=== PATIENT | female | born 1965 | race Caucasian/White ===

== ENCOUNTER 2016-06-18 13:42 | Emergency (ER) | payer MEDICAID ==
--- NOTE | 2016-06-18 13:51 | ER Document Report ---
ED Medical Screen (RME) - General Stated Complaint: COUGH Notes: patient is a 50 year old female who presents with cough that started 3 days ago , she states when she coughs she has lower pelvic pain, "ripping". She had a hysterectomy 4 months ago. Cough is nonproductive, denies any nasal drainage, fevers, chills, SOB or weezing I have greeted and performed a rapid initial assessment of this patient. A comprehensive ED assessment and evaluation of the patient, analysis of test results and completion of the medical decision making process will be conducted by additional ED providers. TRAVEL OUTSIDE OF THE [place] IN LAST 30 DAYS: No - Related Data Allergies/Adverse Reactions: hydromorphone [From Dilaudid] Adverse Reaction (Unknown, Verified 06/18/16 13:48 ) Nausea Past Medical History - Past Medical History Cardiac Medical History: Reports: Hx Congestive Heart Failure, Hx Coronary Artery Disease, Hx Heart Attack - 2008 with stent, Hx Hypercholesterolemia Denies: Hx Hypertension Pulmonary Medical History: Reports: Hx Asthma, Hx Bronchitis, Hx COPD, Hx Pneumonia Denies: Hx Tuberculosis Neurological Medical History: Denies: Hx Cerebrovascular Accident, Hx Seizures Renal/ Medical History: Denies: Hx End Stage Renal Disease, Hx Kidney Stones GI Medical History: Reports: Hx Gastroesophageal Reflux Disease. Denies: Hx Cirrhosis, Hx Gastritis, Hx Hepatitis, Hx Irritable Bowel, Hx Ulcer Musculoskeltal Medical History: Denies Hx Arthritis, Denies Hx Fibromyalgia, Denies Hx Gout, Denies Hx Multiple Sclerosis, Reports Hx Muscle Spasm - lower back, Denies Hx Musculoskeletal Deformity Psychiatric Medical History: Reports: Hx Anxiety, Hx Bipolar Disorder, Hx Depression Denies: Hx Schizophrenia Infectious Medical History: Denies: Hx Hepatitis Past Surgical History: Reports: Hx Appendectomy, Hx Cardiac Catheterization, Hx Cardiac Surgery - stent x 2, Hx Coronary Stent - x2 2008 at [facility] in [place], Hx Hysterectomy, Hx Kidney (Renal Surgery). Denies: Hx Pacemaker - Immunizations Immunizations up to date: Yes Hx Diphtheria, Pertussis, Tetanus Vaccination: Yes Physical Exam - Vital signs Vitals: Temp Pulse Resp BP Pulse Ox 97.8 F 70 16 106/61 99 06/18/16 13:45 06/18/16 13:45 06/18/16 13:45 06/18/16 13:45 06/18/16 13:45 Course - Vital Signs Vital signs: Temp Pulse Resp BP Pulse Ox 97.8 F 70 16 106/61 99 06/18/16 13:45 06/18/16 13:45 06/18/16 13:45 06/18/16 13:45 06/18/16 13:45
[2016-06-18 14:59] LABS: APPEARANCE,URINE CLEAR; BILIRUBIN,URINE NEGATIVE (NEGATIVE); GLUCOSE, URINE NEGATIVE (NEGATIVE); KETONES,URINE NEGATIVE (NEGATIVE); LEUKOCYTE ESTERASE,URINE NEGATIVE (NEGATIVE); NITRITE,URINE NEGATIVE (NEGATIVE); PROTEIN,URINE NEGATIVE (NEGATIVE); URINE SPECIFIC GRAVITY 1.012; UROBILINOGEN,URINE NEGATIVE mg/dL (<2.0)
--- NOTE | 2016-06-18 15:32 | ER Document Report ---
HPI - HPI Patient complains to provider of: abdominal pain, cough Onset: Other - 3 days Quality of pain: Sharp Severity: Severe Pain Level: 5 Context: Patient presents to the emergency department with complaints of lower abdominal pain when she coughs. Patient reports she had a hysterectomy in January. She reports she had complications. She reports 3 days ago she noted she had pain whenever she coughed. She reports nonproductive cough. Denies fever vomiting diarrhea. She reports it feels like the area is tearing. Denies pain with void. Associated Symptoms: Nonproductive cough Exacerbated by: Coughing Relieved by: Denies Similar symptoms previously: No Recently seen / treated by doctor: No - REPRODUCTIVE Reproductive: DENIES: : - DERM Skin Color: Normal Past Medical History - General Information source: Patient Last Menstrual Period: hyst - Social History Smoking Status: Current Every Day Smoker Chew tobacco use (# tins/day): No Frequency of alcohol use: None Drug Abuse: None Lives with: Family Family History: None Patient has suicidal ideation: No Patient has homicidal ideation: No - Past Medical History Cardiac Medical History: Reports: Hx Congestive Heart Failure, Hx Coronary Artery Disease, Hx Heart Attack - 2008 with stent, Hx Hypercholesterolemia Denies: Hx Hypertension Pulmonary Medical History: Reports: Hx Asthma, Hx Bronchitis, Hx COPD, Hx Pneumonia Denies: Hx Tuberculosis Neurological Medical History: Denies: Hx Cerebrovascular Accident, Hx Seizures Renal/ Medical History: Denies: Hx End Stage Renal Disease, Hx Kidney Stones, Hx Peritoneal Dialysis GI Medical History: Reports: Hx Gastroesophageal Reflux Disease. Denies: Hx Cirrhosis, Hx Gastritis, Hx Hepatitis, Hx Irritable Bowel, Hx Ulcer Musculoskeltal Medical History: Denies Hx Arthritis, Denies Hx Fibromyalgia, Denies Hx Gout, Denies Hx Multiple Sclerosis, Reports Hx Muscle Spasm - lower back, Denies Hx Musculoskeletal Deformity Psychiatric Medical History: Reports: Hx Anxiety, Hx Bipolar Disorder, Hx Depression Denies: Hx Schizophrenia Infectious Medical History: Denies: Hx Hepatitis Past Surgical History: Reports: Hx Appendectomy, Hx Cardiac Catheterization, Hx Cardiac Surgery - stent x 2, Hx Coronary Stent - x2 2008 at [facility] in [place], Hx Hysterectomy, Hx Kidney (Renal Surgery). Denies: Hx Pacemaker - Immunizations Immunizations up to date: Yes Hx Diphtheria, Pertussis, Tetanus Vaccination: Yes Hx Pneumococcal Vaccination: 05/10/12 Vertical Provider Document - CONSTITUTIONAL Agree With Documented VS: Yes Exam Limitations: No Limitations General Appearance: WD/WN, No Apparent Distress - nontoxic looking, sitting up eating cheetos - INFECTION CONTROL TRAVEL OUTSIDE OF THE [place] IN LAST 30 DAYS: No - HEENT HEENT: Atraumatic, Normocephalic. negative: Pharyngeal Exudate, Pharyngeal Erythema - NECK Neck: Normal Inspection, Supple. negative: Lymphadenopathy-Left, Lymphadenopathy-Right - RESPIRATORY Respiratory: Breath Sounds Normal, No Respiratory Distress - occasional cough. negative: Rhonchi, Wheezing O2 Sat by Pulse Oximetry: 99 - CARDIOVASCULAR Cardiovascular: Regular Rate, Regular Rhythm - GI/ABDOMEN Gastrointestinal: Abdomen Soft, Abdomen Tender - pt c/o pain to abd when coughing, area palpated, no bulge noted with cough or bearing down, no erythema/ warmth/swelling noted, Normal Bowel Sounds. negative: Abdominal Guarding, Abdominal Rebound, Hepatomegaly, Spleenomegaly - BACK Back: Normal Inspection - MUSCULOSKELETAL/EXTREMETIES Musculoskeletal/Extremeties: MAEW, FROM - NEURO Level of Consciousness: Awake, Alert, Appropriate Motor/Sensory: No Motor Deficit - DERM Integumentary: Warm, Dry Adult Front & Back Diagram: 1 - c/o pain with cough, no pain at rest Course - Re-evaluation Re-evalutation: 06/18/16 Patient was instructed on importance of quit smoking. Patient was also instructed to follow up with Dr. Humphries for evaluation on Monday. He remains negative. Patient looks nontoxic. Abdomen is flat no signs or symptoms of bulging no erythema and no warmth, no signs of infection. - Vital Signs Vital signs: Temp Pulse Resp BP Pulse Ox 97.8 F 70 16 106/61 99 06/18/16 13:45 06/18/16 13:45 06/18/16 13:45 06/18/16 13:45 06/18/16 13:45 Discharge - Discharge Clinical Impression: abdominal pain with cough, Cough Condition: Stable Disposition: HOME, SELF-CARE Instructions: Tesbinta Dobson ([facility]), Stop Smoking ([facility]) Additional Instructions: *You have been evaluated for a cough, abdominal pain with cough *Take medication as prescribed *Quit smoking *Increase fluids *Monitor your temperature, take Tylenol as indicated *Follow up with Dr Humphries Monday for recheck, follow up with your primary care provider within one week for recheck *Return to ED for increasing fever, cough, worsening condition, changes, needs Prescriptions: Benzonatate [Tessalon Perles 100 mg Capsule] 100 mg PO ASDIR PRN #40 capsule PRN Reason: Forms: Smoking Cessation Education Referrals: MIREYA BRUMFIELD PA-C [Primary Care Provider] - Follow up in 1 week BREANA HUMPHRIES MD [ACTIVE STAFF] - 06/20/16
[2016-06-18 15:57] VITALS: BP 98/64
== END 2016-06-18 15:55 | disposition home or self-care (01) ==
LOC: ER 13:42
DX: R10.30 Lower abdominal pain, unspecified (principal); R05 Cough; Z98.890 Other specified postprocedural states; F17.200 Nicotine dependence, unspecified, uncomplicated
CPT/HCPCS: 81001; 87086; 99284

== ENCOUNTER 2016-07-08 10:33 | Emergency (ER) | payer MEDICAID ==
[2016-07-08] MEDS ORDERED: IBUPROFEN 800 MG TABLET PO ONE (11:10)
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
[2016-07-08] MEDS ORDERED: ONDANSETRON 4 MG TAB.RAPDIS PO ONE (12:39)
[2016-07-08] MEDS ORDERED: CEPHALEXIN 500 MG CAPSULE PO ONE (12:39)
[2016-07-08] MEDS ORDERED: OXYCODONE-ACETAMINOPHEN 5-325 MG TABLET PO ONE (12:39)
[2016-07-08 12:57] VITALS: BP 115/64
== END 2016-07-08 12:56 | disposition home or self-care (01) ==
LOC: ER 10:33
DX: S02.31XA Fracture of orbital floor, right side, initial encounter for closed fracture (principal); R07.89 Other chest pain; Y04.2XXA Assault by strike against or bumped into by another person, initial encounter; Y92.009 Unspecified place in unspecified non-institutional (private) residence as the place of occurrence of the external cause; F17.210 Nicotine dependence, cigarettes, uncomplicated; J44.9 Chronic obstructive pulmonary disease, unspecified; K21.9 Gastro-esophageal reflux disease without esophagitis; I50.9 Heart failure, unspecified; I25.10 Atherosclerotic heart disease of native coronary artery without angina pectoris; E78.00 Pure hypercholesterolemia, unspecified; I25.2 Old myocardial infarction; Z90.710 Acquired absence of both cervix and uterus
CPT/HCPCS: 99284; 70150; 71101; 70486; J3490; S0119

== ENCOUNTER 2016-07-11 15:16 | Emergency (ER) | payer MEDICAID ==
[2016-07-11] MEDS ORDERED: PROCHLORPERAZINE EDISYLATE INJ 10 MG/2 ML VIAL IM ONE (16:16)
[2016-07-11] MEDS ORDERED: MORPHINE SULFATE 10 MG/ML INJ IM ONE (16:16)
[2016-07-11] MEDS ORDERED: ALPRAZOLAM 0.5 MG TABLET PO ONE (16:16)
--- NOTE | 2016-07-11 16:18 | ER Document Report ---
HPI - HPI Patient complains to provider of: facial pain and headache Pain Level: 5 Context: Patient is a 50-year-old female who was seen on July 07 and was diagnosed with orbital floor fracture that is nondisplaced as well as maxillary sinus fractures of the right side. Patient states that she is in the process scheduling a follow-up visit with ophthalmology but states that she has had a headache and ran out of Percocet. Her facial pain now includes mild numbness along the right lateral aspect of her nose and over her cheek that she is able to smile and frown and move her face without any difficulty. States that her headache is predominantly on the right side and pulsating in nature. She denies any history of migraines. She states she's been following precautions she was given is been sleeping at an angle in bed. States she's been using ice for her face as well. - REPRODUCTIVE Reproductive: DENIES: : - DERM Skin Color: Normal, [place] Past Medical History - Social History Smoking Status: Current Every Day Smoker Family History: None Patient has suicidal ideation: No - Past Medical History Cardiac Medical History: Reports: Hx Congestive Heart Failure, Hx Coronary Artery Disease, Hx Heart Attack - 2008 with stent, Hx Hypercholesterolemia Denies: Hx Hypertension Pulmonary Medical History: Reports: Hx Asthma, Hx Bronchitis, Hx COPD, Hx Pneumonia Denies: Hx Tuberculosis Neurological Medical History: Denies: Hx Cerebrovascular Accident, Hx Seizures Renal/ Medical History: Denies: Hx End Stage Renal Disease, Hx Kidney Stones, Hx Peritoneal Dialysis GI Medical History: Reports: Hx Gastroesophageal Reflux Disease. Denies: Hx Cirrhosis, Hx Gastritis, Hx Hepatitis, Hx Irritable Bowel, Hx Ulcer Musculoskeltal Medical History: Denies Hx Arthritis, Denies Hx Fibromyalgia, Denies Hx Gout, Denies Hx Multiple Sclerosis, Reports Hx Muscle Spasm - lower back, Denies Hx Musculoskeletal Deformity Psychiatric Medical History: Reports: Hx Anxiety, Hx Bipolar Disorder, Hx Depression Denies: Hx Schizophrenia Infectious Medical History: Denies: Hx Hepatitis Past Surgical History: Reports: Hx Appendectomy, Hx Cardiac Catheterization, Hx Cardiac Surgery - stent x 2, Hx Coronary Stent - x2 2008 at [facility] in [place], Hx Hysterectomy, Hx Kidney (Renal Surgery). Denies: Hx Pacemaker - Immunizations Immunizations up to date: Yes Hx Diphtheria, Pertussis, Tetanus Vaccination: Yes Hx Pneumococcal Vaccination: 05/10/12 Vertical Provider Document - CONSTITUTIONAL Agree With Documented VS: Yes Exam Limitations: No Limitations General Appearance: WD/WN, No Apparent Distress - INFECTION CONTROL TRAVEL OUTSIDE OF THE [place] IN LAST 30 DAYS: No - HEENT HEENT: Normocephalic, PERRLA Notes: Evidence of ecchymosis over the right maxillary sinus with mild swelling. Extraocular muscles intact without any concern for entrapment. - NECK Neck: Normal Inspection - RESPIRATORY Respiratory: Breath Sounds Normal, No Respiratory Distress, Chest Non-Tender. negative: Rales, Rhonchi, Wheezing - CARDIOVASCULAR Cardiovascular: Regular Rate, Regular Rhythm, No Murmur Pulses: Normal: Radial - NEURO Level of Consciousness: Awake, Alert, Appropriate Motor/Sensory: No Motor Deficit, No Sensory Deficit - DERM Integumentary: Warm, Dry, No Rash Course - Re-evaluation Re-evalutation: 07/11/16 21:23 patient is a 50-year-old female who is hemodynamically stable, no acute distress and afebrile. Presentation of her facial pain is consistent with either injury or irritation to the infraorbital nerve that would innervate that part of her face. There is no need for additional imaging at this time. Patient received pain medication and Compazine for her headache which she states that improved dramatically. Discussed with patient importance of following up with ophthalmology which she expresses understanding. Discussed with her to continue taking her antibiotics as prescribed Per [facility] protocol and guidelines, this case was discussed with supervising physician Dr. Werner Osborn prior to discharge Discharge - Discharge Clinical Impression: Orbital floor fracture Qualifiers: Encounter type: subsequent encounter Fracture type: closed Laterality: right Fracture healing: with routine healing Qualified Code(s): S02.31XD - Fracture of orbital floor, right side, subsequent encounter for fracture with routine healing Condition: Good Disposition: HOME, SELF-CARE Additional Instructions: Continue taking your medications as prescribed. Follow-up with ophthalmology when you have a scheduled appointment Prescriptions: Oxycodone HCl/Acetaminophen [Percocet 5-325 mg Tablet] 1 - 2 tab PO Q4H PRN #25 tablet PRN Reason: Referrals: DANIELLE CONWAY FNP [Primary Care Provider] - Follow up as needed
[2016-07-11 18:09] VITALS: BP 118/70
== END 2016-07-11 17:21 | disposition home or self-care (01) ==
LOC: ER 15:16
DX: S02.31XD Fracture of orbital floor, right side, subsequent encounter for fracture with routine healing (principal); R51 Headache; F17.200 Nicotine dependence, unspecified, uncomplicated; X58.XXXD Exposure to other specified factors, subsequent encounter
CPT/HCPCS: 99283; 96372; J3490; J2270; J0780

== ENCOUNTER 2016-10-13 12:40 | Emergency (ER) | payer MEDICAID ==
[2016-10-13 12:50] VITALS: BP 123/86
[2016-10-13] MEDS ORDERED: HYDROCODONE/ACETAMINOPHEN 5-325 MG TABLET PO ONE (12:56)
== END 2016-10-13 14:30 | disposition left against medical advice (07) ==
LOC: ER 12:40
DX: Z53.9 Procedure and treatment not carried out, unspecified reason (principal); J34.89 Other specified disorders of nose and nasal sinuses

== ENCOUNTER 2016-10-14 03:14 | Emergency (ER) | payer MEDICAID ==
[2016-10-14] MEDS ORDERED: OXYCODONE-ACETAMINOPHEN 5-325 MG TABLET PO ONE (03:41)
--- NOTE | 2016-10-14 03:47 | ER Document Report ---
ED General - General Chief Complaint: Post Surgical Pain Stated Complaint: NOSE PAIN Time Seen by Provider: 10/14/16 03:31 Notes: Patient is a 51-year-old female who recently had surgery on her sinuses and nodes. She has a history of orbital floor fracture. Because of this she was having sinus issues. Since his surgery she has had severe pain in her nose. She said the English is not helping and therefore she stopped taking it has been taking Motrin. She has had Percocet in the past which works better for her. No bleeding from the nose. No vomiting. No fevers. No other complaints at this time. TRAVEL OUTSIDE OF THE [place] IN LAST 30 DAYS: No - Related Data Allergies/Adverse Reactions: hydromorphone [From Dilaudid] Adverse Reaction (Unknown, Verified 10/13/16 12:49 ) Nausea Past Medical History - Social History Smoking Status: Unknown if Ever Smoked Frequency of alcohol use: None Drug Abuse: None Family History: None Patient has suicidal ideation: No Patient has homicidal ideation: No - Past Medical History Cardiac Medical History: Reports: Hx Congestive Heart Failure, Hx Coronary Artery Disease, Hx Heart Attack - 2008 with stent, Hx Hypercholesterolemia Denies: Hx Hypertension Pulmonary Medical History: Reports: Hx Asthma, Hx Bronchitis, Hx COPD, Hx Pneumonia Denies: Hx Tuberculosis Neurological Medical History: Denies: Hx Cerebrovascular Accident, Hx Seizures Renal/ Medical History: Denies: Hx End Stage Renal Disease, Hx Kidney Stones, Hx Peritoneal Dialysis GI Medical History: Reports: Hx Gastroesophageal Reflux Disease. Denies: Hx Cirrhosis, Hx Gastritis, Hx Hepatitis, Hx Irritable Bowel, Hx Ulcer Musculoskeltal Medical History: Denies Hx Arthritis, Denies Hx Fibromyalgia, Denies Hx Gout, Denies Hx Multiple Sclerosis, Reports Hx Muscle Spasm - lower back, Denies Hx Musculoskeletal Deformity Psychiatric Medical History: Reports: Hx Anxiety, Hx Bipolar Disorder, Hx Depression Denies: Hx Schizophrenia Infectious Medical History: Denies: Hx Hepatitis Past Surgical History: Reports: Hx Appendectomy, Hx Cardiac Catheterization, Hx Cardiac Surgery - stent x 2, Hx Coronary Stent - x2 2008 at [facility] in [place], Hx Hysterectomy, Hx Kidney (Renal Surgery). Denies: Hx Pacemaker - Immunizations Immunizations up to date: Yes Hx Diphtheria, Pertussis, Tetanus Vaccination: Yes Hx Pneumococcal Vaccination: 05/10/12 Review of Systems - Review of Systems Notes: My Normal Review Basic REVIEW OF SYSTEMS: CONSTITUTIONAL : Denies fever, chills, or sweats. Denies recent illness. EENT: Facial pain. MUSCULOSKELETAL: Denies neck or back pain or joint pain or swelling. SKIN: Denies rash or skin lesions. NEUROLOGICAL: Denies altered mental status or loss of consciousness. Denies headache. Denies weakness or paralysis or loss of use of either side. Denies problems with gait or speech. Denies sensory or motor loss. ALL OTHER SYSTEMS REVIEWED AND NEGATIVE. Physical Exam - Vital signs Vitals: Temp Pulse Resp BP Pulse Ox 97.8 F 88 20 117/73 97 10/14/16 03:17 10/14/16 03:10/14/16 03:10/14/16 03:10/14/16 03:17 - Notes Notes: General Appearance: Well nourished, alert, cooperative, no acute distress, moderate obvious discomfort. Tearful Vitals: reviewed, See vital signs table. Head: no swelling or tenderness to the head Eyes: PERRL, EOMI, Conjuctiva clear Mouth: No decreasd moisture Throat: No tonsillar inflammation, No airway obstruction, No lymphadenopathy Nose: Stents in bilateral nares. No discharge or blood from nares. Neck: Supple, no neck tenderness, Lungs: No wheezing, No rales, No rhonci, No accessory muscle use, good air exchange bilaterally. Heart: Normal rate, Regular rythm, No murmur, no rub Neuro: speech clear, oriented x 3, normal affect, responds appropriately to questions. Course - Vital Signs Vital signs: Temp Pulse Resp BP Pulse Ox 97.8 F 88 20 117/73 97 10/14/16 03:17 10/14/16 03:17 10/14/16 03:10/14/16 03:10/14/16 03:17 - Transfer of Care Notes: 10/14/16 03:49 I informed patient that I will place her on Percocet. I am told her that the Percocet may help a little bit more with her pain but will not relieve her pain. I informed her that she should expect have some pain over the next week to 2 weeks until her sinus node was healed. I informed her that this is typically a painful surgery. I encouraged her to call her doctor Prabhjot morning for close follow-up and for further pain management. I informed her that she cannot take the hydrocodone while taking the oxycodone. Patient is aware of this and says she will not take the hydrocodone. Patient's is at bedside. He agrees with plan as well. Dictation of this chart was performed using voice recognition software; therefore, there may be some unintended grammatical errors. Discharge - Discharge Clinical Impression: Post-op pain Condition: Good Disposition: HOME, SELF-CARE Additional Instructions: Do not take the hydrocodone medication since we are starting you on the oxycodone. Please follow up with your doctor on Monday for reevaluation. Prescriptions: Oxycodone HCl/Acetaminophen [Percocet 5-325 mg Tablet] 1 tab PO Q4H PRN #15 tablet PRN Reason:
[2016-10-14 04:04] VITALS: BP 110/71
== END 2016-10-14 04:00 | disposition home or self-care (01) ==
LOC: ER 03:14
DX: G89.18 Other acute postprocedural pain (principal); I50.9 Heart failure, unspecified; I25.10 Atherosclerotic heart disease of native coronary artery without angina pectoris; E78.00 Pure hypercholesterolemia, unspecified; J44.9 Chronic obstructive pulmonary disease, unspecified; K21.9 Gastro-esophageal reflux disease without esophagitis; I25.2 Old myocardial infarction; Z88.6 Allergy status to analgesic agent; Z90.710 Acquired absence of both cervix and uterus
CPT/HCPCS: 99283

== ENCOUNTER 2016-10-16 13:38 | Emergency (ER) | payer MEDICAID ==
[2016-10-16 13:48] VITALS: BP 104/72
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
== END 2016-10-16 14:25 | disposition home or self-care (01) ==
LOC: ER 13:38
DX: J34.89 Other specified disorders of nose and nasal sinuses (principal); G89.18 Other acute postprocedural pain; R51 Headache; Z79.899 Other long term (current) drug therapy; F17.200 Nicotine dependence, unspecified, uncomplicated; Y08.09XA Assault by strike by other specified type of sport equipment, initial encounter
CPT/HCPCS: 99283

== ENCOUNTER 2017-02-23 19:23 | Emergency (ER) | payer MEDICAID ==
--- NOTE | 2017-02-23 19:48 | ER Document Report ---
ED Medical Screen (RME) - General Chief Complaint: Chest Pain > 30 Stated Complaint: CHEST PAIN,LEFT ARM NUMBNESS Time Seen by Provider: 02/23/17 19:47 TRAVEL OUTSIDE OF THE [place] IN LAST 30 DAYS: No - Related Data Allergies/Adverse Reactions: hydromorphone [From Dilaudid] Adverse Reaction (Unknown, Verified 02/23/17 19:28 ) Nausea Past Medical History - Past Medical History Cardiac Medical History: Reports: Hx Congestive Heart Failure, Hx Coronary Artery Disease, Hx Heart Attack - 2008 with stent, Hx Hypercholesterolemia Denies: Hx Hypertension Pulmonary Medical History: Reports: Hx Asthma, Hx Bronchitis, Hx COPD, Hx Pneumonia Denies: Hx Tuberculosis Neurological Medical History: Denies: Hx Cerebrovascular Accident, Hx Seizures Renal/ Medical History: Denies: Hx End Stage Renal Disease, Hx Kidney Stones, Hx Peritoneal Dialysis GI Medical History: Reports: Hx Gastroesophageal Reflux Disease. Denies: Hx Cirrhosis, Hx Gastritis, Hx Hepatitis, Hx Irritable Bowel, Hx Ulcer Musculoskeltal Medical History: Denies Hx Arthritis, Denies Hx Fibromyalgia, Denies Hx Gout, Denies Hx Multiple Sclerosis, Reports Hx Muscle Spasm - lower back, Denies Hx Musculoskeletal Deformity Psychiatric Medical History: Reports: Hx Anxiety, Hx Bipolar Disorder, Hx Depression Denies: Hx Schizophrenia Infectious Medical History: Denies: Hx Hepatitis Past Surgical History: Reports: Hx Appendectomy, Hx Cardiac Catheterization, Hx Cardiac Surgery - stent x 2, Hx Coronary Stent - x2 2008 at [facility] in [place], Hx Hysterectomy, Hx Kidney (Renal Surgery). Denies: Hx Pacemaker - Immunizations Immunizations up to date: Yes Hx Diphtheria, Pertussis, Tetanus Vaccination: Yes Physical Exam - Vital signs Vitals: Temp Pulse Resp BP Pulse Ox 97.9 F 61 18 119/75 97 02/23/17 19:37 02/23/17 19:37 02/23/17 19:37 02/23/17 19:37 02/23/17 19:37 Course - Vital Signs Vital signs: Temp Pulse Resp BP Pulse Ox 97.9 F 61 18 119/75 97 02/23/17 19:37 02/23/17 19:37 02/23/17 19:37 02/23/17 19:37 02/23/17 19:37
[2017-02-23] MEDS ORDERED: HYDROCODONE/ACETAMINOPHEN 5-325 MG TABLET PO ONE (20:26)
--- NOTE | 2017-02-23 20:49 | ER Document Report ---
ED General - General Chief Complaint: Chest Pain > 30 Stated Complaint: CHEST PAIN,LEFT ARM NUMBNESS Time Seen by Provider: 02/23/17 19:47 Mode of Arrival: Ambulatory Information source: Patient Notes: 51-year-old female history of cardiac concerns presents with complaints of left anterior rib wall pain after fall 2 days ago. Patient notes breathing has worsened since and it hurts to take a deep breath. She denies any fevers or chills states the pain has been constant when you touch it on the chest wall TRAVEL OUTSIDE OF THE [place] IN LAST 30 DAYS: No - HPI Onset: Other - 2-3 day duration Onset/Duration: Persistent Quality of pain: Sharp Severity: Moderate Pain Level: 2 Associated symptoms: Body/muscle aches, Hurts to breath, Shortness of breath Exacerbated by: Deep breathing Relieved by: Denies Similar symptoms previously: Yes Recently seen / treated by doctor: Yes - Related Data Allergies/Adverse Reactions: hydromorphone [From Dilaudid] Adverse Reaction (Unknown, Verified 02/23/17 19:28 ) Nausea Past Medical History - Social History Smoking Status: Current Every Day Smoker Cigarette use (# per day): Yes Chew tobacco use (# tins/day): No Smoking Education Provided: No Family History: None - Past Medical History Cardiac Medical History: Reports: Hx Congestive Heart Failure, Hx Coronary Artery Disease, Hx Heart Attack - 2008 with stent, Hx Hypercholesterolemia Denies: Hx Hypertension Pulmonary Medical History: Reports: Hx Asthma, Hx Bronchitis, Hx COPD, Hx Pneumonia Denies: Hx Tuberculosis Neurological Medical History: Denies: Hx Cerebrovascular Accident, Hx Seizures Renal/ Medical History: Denies: Hx End Stage Renal Disease, Hx Kidney Stones, Hx Peritoneal Dialysis GI Medical History: Reports: Hx Gastroesophageal Reflux Disease. Denies: Hx Cirrhosis, Hx Gastritis, Hx Hepatitis, Hx Irritable Bowel, Hx Ulcer Musculoskeltal Medical History: Denies Hx Arthritis, Denies Hx Fibromyalgia, Denies Hx Gout, Denies Hx Multiple Sclerosis, Reports Hx Muscle Spasm - lower back, Denies Hx Musculoskeletal Deformity Psychiatric Medical History: Reports: Hx Anxiety, Hx Bipolar Disorder, Hx Depression Denies: Hx Schizophrenia Infectious Medical History: Denies: Hx Hepatitis Past Surgical History: Reports: Hx Appendectomy, Hx Cardiac Catheterization, Hx Cardiac Surgery - stent x 2, Hx Coronary Stent - x2 2007 at [facility] in [place], Hx Hysterectomy, Hx Kidney (Renal Surgery). Denies: Hx Pacemaker - Immunizations Immunizations up to date: Yes Hx Diphtheria, Pertussis, Tetanus Vaccination: Yes Hx Pneumococcal Vaccination: 05/10/12 Review of Systems - Review of Systems Notes: REVIEW OF SYSTEMS: CONSTITUTIONAL : Denies fever, chills, or sweats. Denies recent illness. EENT: Denies eye, ear, throat, or mouth pain or symptoms. Denies nasal or sinus congestion or discharge. Denies throat, tongue, or mouth swelling or difficulty swallowing. CARDIOVASCULAR: Admits anterior chest wall pain RESPIRATORY: Admits to pain with deep inspiration GASTROINTESTINAL: Denies abdominal pain or distention. Denies nausea, vomiting , or diarrhea. Denies blood in vomitus, stools, or per rectum. Denies black, tarry stools. Denies constipation. GENITOURINARY: Denies difficulty urinating, painful urination, burning, frequency, blood in urine, or discharge. FEMALE GENITOURINARY: Denies vaginal bleeding, heavy or abnormal periods, irregular periods. Denies vaginal discharge or odor. MUSCULOSKELETAL: Denies back or neck pain or stiffness. Denies joint pain or swelling. SKIN: Denies rash, lesions or sores. HEMATOLOGIC : Denies easy bruising or bleeding. LYMPHATIC: Denies swollen, enlarged glands. NEUROLOGICAL: Denies confusion or altered mental status. Denies passing out or loss of consciousness. Denies dizziness or lightheadedness. Denies headache. Denies weakness or paralysis or loss of use of either side. Denies problems with gait or speech. Denies sensory loss, numbness, or tingling. Denies seizures. PSYCHIATRIC: Denies anxiety or stress. Denies depression, suicidal ideation, or homicidal ideation. ALL OTHER SYSTEMS REVIEWED AND NEGATIVE. PHYSICAL EXAMINATION: GENERAL: Well-appearing, well-nourished and in no acute distress. HEAD: Atraumatic, normocephalic. EYES: Pupils equal round and reactive to light, extraocular movements intact, conjunctiva are normal. ENT: Nares patent, oropharynx clear without exudates. Moist mucous membranes. NECK: Normal range of motion, supple without lymphadenopathy LUNGS: Breath sounds clear to auscultation bilaterally and equal. No wheezes rales or rhonchi. Left anterior chest wall tenderness just lateral to the sternum reproducing the same exact pain HEART: Regular rate and rhythm without murmurs ABDOMEN: Soft, nontender, nondistended abdomen. No guarding, no rebound. No masses appreciated. Female : deferred Musculoskeletal: Normal range of motion, no pitting or edema. No cyanosis. NEUROLOGICAL: Cranial nerves grossly intact. Normal speech, normal gait. Normal sensory, motor exams PSYCH: Normal mood, normal affect. SKIN: Warm, Dry, normal turgor, no rashes or lesions noted. Dictation was performed using [employer] voice recognition software Physical Exam - Vital signs Vitals: Temp Pulse Resp BP Pulse Ox 97.9 F 61 18 119/75 97 02/23/17 19:37 02/23/17 19:37 02/23/17 19:37 02/23/17 19:37 02/23/17 19:37 Course - Re-evaluation Re-evalutation: 02/23/17 20:49 CT pending to rule out any fracture or pneumothorax 02/23/17 22:27 CT imaging noted no significant abnormality, lab work noted no abnormality either, patient overall looks well is in no distress, she notes pain control resolved her symptoms After performing a Medical Screening Examination, I estimate there is LOW risk for RUPTURED ESOPHAGUS, PNEUMOTHORAX, PULMONARY EMBOLISM, ACUTE CORONARY SYNDROME, OR THORACIC AORTIC DISSECTION, thus I consider the discharge disposition reasonable. I have reevaluated this patient multiple times and no significant life threatening changes are noted. The patient and I have discussed the diagnosis and risks, and we agree with discharging home with close follow-up. We also discussed returning to the Emergency Department immediately if new or worsening symptoms occur. We have discussed the symptoms which are most concerning (e.g., bloody sputum, worsening pain or shortness of breath) that necessitate immediate return. - Vital Signs Vital signs: Temp Pulse Resp BP Pulse Ox 97.9 F 61 18 119/75 97 02/23/17 19:37 02/23/17 19:37 02/23/17 19:37 02/23/17 19:37 02/23/17 19:37 - Laboratory Result Diagrams: 02/23/17 20:36 02/23/17 20:36 Laboratory results interpreted by me: 02/23/17 20:36 Chloride 108 H Glucose 129 H - Diagnostic Test Radiology reviewed: Image reviewed, Reports reviewed - no acute abnormality - EKG Interpretation by Me EKG shows normal: Sinus rhythm, [place], Intervals, QRS Complexes Discharge - Discharge Clinical Impression: Chest wall pain Condition: Stable Disposition: HOME, SELF-CARE Instructions: Chest Wall Pain ([facility]) Additional Instructions: Follow up with your physician tomorrow for further care or return to the ED IMMEDIATELY if symptoms worsen or new concerns occur. If you cannot afford to follow up with your primary care physician a list of low cost clinics have been provided at the end of your discharge papers as well. Prescriptions: Hydrocodone/Acetaminophen [[place] 5-325 mg Tablet] 1 tab PO Q6 #10 tablet
[2017-02-23 20:54] LABS: ABSOLUTE BASOPHILS # (AUTO) 0.1 10^3/uL (0.0-0.2); ABSOLUTE EOSINOPHILS # (AUTO) 0.3 10^3/uL (0.0-0.6); ABSOLUTE LYMPHOCYTES (AUTO) 2.7 10^3/uL (0.5-4.7); ABSOLUTE MONOCYTES (AUTO) 0.4 10^3/uL (0.1-1.4); ABSOLUTE NEUT (AUTO) 2.8 10^3/uL (1.7-8.2); EOSINOPHILS % (AUTO) 4.3 % (0-6); HEMATOCRIT 36.2 % (36.0-47.0); HEMOGLOBIN 12.6 g/dL (12.0-15.5); HGB HCT DIFFERENCE 1.6; LYMPHOCYTES % (AUTO) 43.7 % (13-45); MEAN CORPUSCULAR HEMOGLOBIN 31.6 pg (27.0-33.4); MEAN CORPUSCULAR HGB CONC 34.9 g/dL (32.0-36.0); MEAN CORPUSCULAR VOLUME 90 fl (80-97); MONOCYTES % (AUTO) 6.5 % (3-13); RED CELL DISTRIBUTION WIDTH 13.1 % (11.5-14.0); SEGMENTED NEUTROPHILS % (AUTO) 44.5 % (42-78); WHITE BLOOD COUNT 6.3 10^3/uL (4.0-10.5)
[2017-02-23 21:03] LABS: ALANINE AMINOTRANSFERASE 45 U/L (9-52); ALBUMIN 3.8 g/dL (3.5-5.0); ALKALINE PHOSPHATASE 76 U/L (38-126); ANION GAP 12 (5-19); ASPARTATE AMINO TRANSFERASE 20 U/L (14-36); BILIRUBIN,DIRECT 0.2 mg/dL (0.0-0.4); BILIRUBIN,TOTAL 0.2 mg/dL (0.2-1.3); BLOOD UREA NITROGEN 14 mg/dL (7-20); CARBON DIOXIDE 23 mmol/L (22-30); CHLORIDE 108 mmol/L (98-107); CREATINE KINASE 43 U/L (30-135); CREATININE RESULT 0.85 mg/dL (0.52-1.25); GLUCOSE 129 mg/dL (75-110); POTASSIUM 3.7 mmol/L (3.6-5.0); SODIUM 143.2 mmol/L (137-145); TOTAL PROTEIN 6.6 g/dL (6.3-8.2)
[2017-02-23 21:15] LABS: CREATINE KINASE MB 0.92 ng/mL (<4.55)
[2017-02-23 21:18] LABS: TROPONIN I < 0.012 ng/mL
--- NOTE | 2017-02-23 22:22 | RADIOLOGY REPORT (SQ) ---
EXAM DESCRIPTION: CT CHEST WITH COMPLETED DATE/TIME: 02/23/2017 10:01 pm REASON FOR STUDY: left ant rib 5-6 pain , trauma COMPARISON: PA chest and left rib films 07/08/2016 TECHNIQUE: CT scan of the chest performed using helical scanning technique with dynamic intravenous contrast injection. Images reviewed with lung, soft tissue and bone windows. Reconstructed coronal and sagittal MPR images reviewed. All images stored on PACS. All CT scanners at this facility use dose modulation, iterative reconstruction, and/or weight based d osing when appropriate to reduce radiation dose to as low as reasonably achievable (ALARA). [facility]: Dose Right [facility]: CareDose [facility]: Dose Right [facility]: Teradose 4D [facility]: Stalkthis CONTRAST TYPE AND DOSE: contrast/concentration: Isovue 370.00 mg/ml; Total Contrast Delivered: 60.0 ml; Total Saline Delivered: 55.0 ml RENAL FUNCTION: Creatinine 0.85 RADIATION DOSE: CT Rad equipment meets quality standard of care and radiation dose reduction techniq ues were employed. CTDIvol: 5.8 mGy. DLP: 223 mGy-cm. . LIMITATIONS: None. FINDINGS: LUNGS AND PLEURA: No opacities, nodules, masses. No pneumothorax. No effusions. HILAR AND MEDIASTINAL STRUCTURES: No identified masses or abnormal nodes. HEART AND VASCULAR STRUCTURES: No aneurysm or dissection. No central pulmonary emboli. No pericardi al effusion. HARDWARE: None in the chest. UPPER ABDOMEN: No significant findings. Limited exam. THYROID AND OTHER SOFT TISSUES: No masses. No adenopathy. BONES: No significant finding. OTHER: No other significant finding. IMPRESSION: NORMAL CT OF THE CHEST WITH IV CONTRAST. TECHNICAL DOCUMENTATION: JOB ID: [id number] Quality ID # [id number]: Final reports with documentation of one or more dose reduction techniques (e.g., Au tomated exposure control, adjustment of the mA and/or kV according to patient size, use of iterative reconstruction technique) 2010 [employer]- All Rights Reserved
[2017-02-23 23:01] VITALS: BP 116/63
--- NOTE | 2017-02-24 14:41 | EKG REPORT ---
SEVERITY:- ABNORMAL ECG - SINUS OR ECTOPIC ATRIAL RHYTHM LEFT ANTERIOR FASCICULAR BLOCK LOW VOLTAGE IN FRONTAL LEADS BORDERLINE T ABNORMALITIES, INFERIOR LEADS : Confirmed by: Kristine Colindres MD 24-Feb-2017 14:40:43
== END 2017-02-23 23:01 | disposition home or self-care (01) ==
LOC: ER 19:23
DX: R07.89 Other chest pain (principal); R20.0 Anesthesia of skin; R07.81 Pleurodynia; F17.210 Nicotine dependence, cigarettes, uncomplicated
CPT/HCPCS: 36415; 71260; 80053; 82550; 82553; 84484; 85025; 93005; 93010; 99285

== ENCOUNTER 2017-05-19 09:51 | Emergency (ER) | payer MEDICAID ==
[2017-05-19] MEDS ORDERED: HYDROMORPHONE HCL INJ/PF 2 MG/ML AMPULE IM ONE (11:08)
--- NOTE | 2017-05-19 11:12 | ER Document Report ---
HPI - HPI Patient complains to provider of: Mouth pain Onset: Yesterday Onset/Duration: Persistent Quality of pain: Achy Pain Level: 5 Context: Patient states she had oral surgery yesterday. Patient states that she had bone fragments that were coming through her gums and the oral surgeon opened up her gingiva and filed these areas down. Patient is already taking pain medication as well as antibiotics. Patient denies any fever. Patient complains of continued mouth pain. Associated Symptoms: Other - Oral pain Exacerbated by: Denies Relieved by: Denies Similar symptoms previously: No Recently seen / treated by doctor: Yes - ROS ROS below otherwise negative: Yes Systems Reviewed and Negative: Yes All other systems reviewed and negative - CONSTITUTIONAL Constitutional: DENIES: Fever, Chills - EENT Notes: Mouth tenderness - GASTROINTESTINAL Gastrointestinal: DENIES: Nausea - REPRODUCTIVE Reproductive: DENIES: : - DERM Skin Color: Ecchymosis Skin Problems: None Past Medical History - General Information source: Patient - Social History Smoking Status: Current Every Day Smoker Chew tobacco use (# tins/day): No Smoking Education Provided: Yes Frequency of alcohol use: None Drug Abuse: None Lives with: Family Family History: None Patient has suicidal ideation: No Patient has homicidal ideation: No - Past Medical History Cardiac Medical History: Reports: Hx Congestive Heart Failure, Hx Coronary Artery Disease, Hx Heart Attack - 2008 with stent, Hx Hypercholesterolemia Denies: Hx Hypertension Pulmonary Medical History: Reports: Hx Asthma, Hx Bronchitis, Hx COPD, Hx Pneumonia Denies: Hx Tuberculosis Neurological Medical History: Denies: Hx Cerebrovascular Accident, Hx Seizures Renal/ Medical History: Denies: Hx End Stage Renal Disease, Hx Kidney Stones, Hx Peritoneal Dialysis GI Medical History: Reports: Hx Gastroesophageal Reflux Disease. Denies: Hx Cirrhosis, Hx Gastritis, Hx Hepatitis, Hx Irritable Bowel, Hx Ulcer Musculoskeltal Medical History: Denies Hx Arthritis, Denies Hx Fibromyalgia, Denies Hx Gout, Denies Hx Multiple Sclerosis, Reports Hx Muscle Spasm - lower back, Denies Hx Musculoskeletal Deformity Psychiatric Medical History: Reports: Hx Anxiety, Hx Bipolar Disorder, Hx Depression Denies: Hx Schizophrenia Infectious Medical History: Denies: Hx Hepatitis Past Surgical History: Reports: Hx Appendectomy, Hx Cardiac Catheterization, Hx Cardiac Surgery - stent x 2, Hx Coronary Stent - x2 2007 at [facility] in [place], Hx Hysterectomy, Hx Kidney (Renal Surgery). Denies: Hx Pacemaker - Immunizations Immunizations up to date: Yes Hx Diphtheria, Pertussis, Tetanus Vaccination: Yes Hx Pneumococcal Vaccination: 05/10/12 Vertical Provider Document - CONSTITUTIONAL Agree With Documented VS: Yes Exam Limitations: No Limitations General Appearance: WD/WN, No Apparent Distress - INFECTION CONTROL TRAVEL OUTSIDE OF THE [place] IN LAST 30 DAYS: No - HEENT HEENT: Atraumatic, Normocephalic Mouth Diagram: 1 - Running suture to entire upper jaw, no swelling, no concern for abscess. Wound appears to be healing appropriately. Mild ecchymosis noted to inside upper lip - NECK Neck: Normal Inspection, Supple - RESPIRATORY Respiratory: Breath Sounds Normal, No Respiratory Distress O2 Sat by Pulse Oximetry: 95 - CARDIOVASCULAR Cardiovascular: Regular Rate, Regular Rhythm, No Murmur - MUSCULOSKELETAL/EXTREMETIES Musculoskeletal/Extremeties: MAEW - NEURO Level of Consciousness: Awake, Alert, Appropriate Motor/Sensory: No Motor Deficit - DERM Integumentary: Warm, Dry, No Rash Course - Re-evaluation Re-evalutation: 05/19/17 11:09 Controlled substance database reviewed. Wound without any concern for infection at this time. Patient otherwise appears well. Will attempt to better control patient's pain while she is here. Patient encouraged to take her medications as prescribed at home and to follow-up with her oral surgeon for further evaluation. - Vital Signs Vital signs: Temp Pulse Resp BP Pulse Ox 98.2 F 66 16 104/78 95 05/19/17 10:08 05/19/17 10:08 05/19/17 10:08 05/19/17 10:08 05/19/17 10:08 Discharge - Discharge Clinical Impression: mouth pain after dental procedure Condition: Stable Disposition: HOME, SELF-CARE Instructions: Pain Medication Injection ([facility]) Additional Instructions: Return immediately for any new or worsening symptoms Followup with your primary care provider, call tomorrow to make a followup appointment Take your pain medication at home as prescribed as well as your antibiotics Follow-up with your oral surgeon for recheck Forms: Smoking Cessation Education Referrals: BRISSA,MIREYA, PA-C [Primary Care Provider] - Follow up as needed
[2017-05-19 11:28] VITALS: BP 103/75
== END 2017-05-19 11:27 | disposition home or self-care (01) ==
LOC: ER 09:51
DX: K08.89 Other specified disorders of teeth and supporting structures (principal); Z98.890 Other specified postprocedural states; F17.200 Nicotine dependence, unspecified, uncomplicated
CPT/HCPCS: 99283; 96372; J1170

== ENCOUNTER 2017-05-20 11:17 | Emergency (ER) | payer MEDICAID ==
[2017-05-20] MEDS ORDERED: MORPHINE SULFATE IR 15 MG TABLET PO ONE (14:19)
--- NOTE | 2017-05-20 14:19 | ER Document Report ---
HPI - HPI Patient complains to provider of: post op pain Pain Level: 5 Context: Patient is a 51-year-old female returns emergency department complaining of mouth pain. Patient states that she had a dental procedure done 2 days ago and was seen here yesterday. She states that she taking her home Percocet otherwise is not taking her Motrin more than twice a day. She admits to pain. She otherwise denies any fevers, chills, purulent drainage, difficulty swallowing, difficulty breathing. - REPRODUCTIVE Reproductive: DENIES: : Past Medical History - Social History Smoking Status: Current Every Day Smoker Family History: None - Past Medical History Cardiac Medical History: Reports: Hx Congestive Heart Failure, Hx Coronary Artery Disease, Hx Heart Attack - 2008 with stent, Hx Hypercholesterolemia Denies: Hx Hypertension Pulmonary Medical History: Reports: Hx Asthma, Hx Bronchitis, Hx COPD, Hx Pneumonia Denies: Hx Tuberculosis Neurological Medical History: Denies: Hx Cerebrovascular Accident, Hx Seizures Renal/ Medical History: Denies: Hx End Stage Renal Disease, Hx Kidney Stones, Hx Peritoneal Dialysis GI Medical History: Reports: Hx Gastroesophageal Reflux Disease. Denies: Hx Cirrhosis, Hx Gastritis, Hx Hepatitis, Hx Irritable Bowel, Hx Ulcer Musculoskeltal Medical History: Denies Hx Arthritis, Denies Hx Fibromyalgia, Denies Hx Gout, Denies Hx Multiple Sclerosis, Reports Hx Muscle Spasm - lower back, Denies Hx Musculoskeletal Deformity Psychiatric Medical History: Reports: Hx Anxiety, Hx Bipolar Disorder, Hx Depression Denies: Hx Schizophrenia Infectious Medical History: Denies: Hx Hepatitis Past Surgical History: Reports: Hx Appendectomy, Hx Cardiac Catheterization, Hx Cardiac Surgery - stent x 2, Hx Coronary Stent - x2 2008 at [facility] in [place], Hx Hysterectomy, Hx Kidney (Renal Surgery). Denies: Hx Pacemaker - Immunizations Immunizations up to date: Yes Hx Diphtheria, Pertussis, Tetanus Vaccination: Yes Hx Pneumococcal Vaccination: 05/10/12 Vertical Provider Document - CONSTITUTIONAL Agree With Documented VS: Yes Notes: PHYSICAL EXAM GENERAL: Alert, interacts well. HEENT: NCAT, pale conjunctiva, MMM, Uvula midline. Airway patent. No evidence of tonsillar enlargement, peritonsillar abscess, retropharyngeal abscess. No evidence of purulent drainage noted from her upper gums. Suture line intact without any evidence of dehiscence. Sinuses without any significant tenderness palpation, overlying redness. NEUROLOGICAL: Alert and oriented x4. Normal speech. PSYCH: Normal affect, normal mood. SKIN: Warm, dry, normal turgor. No rashes or lesions noted. - INFECTION CONTROL TRAVEL OUTSIDE OF THE [place]. IN LAST 30 DAYS: No - RESPIRATORY O2 Sat by Pulse Oximetry: 96 Course - Re-evaluation Re-evalutation: 05/20/17 14:17 Patient is a 51-year-old female is hemodynamically stable, no acute distress afebrile. Presentation is consistent with postoperative pain. Discussed with her that the emergency room cannot prescribe her any other narcotics and she is receiving them from her dentist. Discussed with her to follow-up with them on Monday otherwise to utilize her Motrin more than twice a day. Discussed with her strict return precautions for tomorrow otherwise stable for discharge home - Vital Signs Vital signs: Temp Pulse Resp BP Pulse Ox 98.5 F 75 20 117/78 96 05/20/17 11:36 05/20/17 11:36 05/20/17 11:36 05/20/17 11:36 05/20/17 11:36 Discharge - Discharge Clinical Impression: Post-op pain Condition: Good Disposition: HOME, SELF-CARE Additional Instructions: Please take your Motrin 800mg every 8 hours Take the tramadol every 8 hours for break through pain Please follow up with the surgeon on Monday Prescriptions: Tramadol HCl 50 mg PO Q6HP PRN #10 tablet PRN Reason:
[2017-05-20 14:44] VITALS: BP 105/73
== END 2017-05-20 14:46 | disposition home or self-care (01) ==
LOC: ER 11:17
DX: G89.18 Other acute postprocedural pain (principal); K08.9 Disorder of teeth and supporting structures, unspecified; F17.200 Nicotine dependence, unspecified, uncomplicated; I50.9 Heart failure, unspecified; I25.10 Atherosclerotic heart disease of native coronary artery without angina pectoris; E78.00 Pure hypercholesterolemia, unspecified; J44.9 Chronic obstructive pulmonary disease, unspecified; I25.2 Old myocardial infarction; Z90.710 Acquired absence of both cervix and uterus
CPT/HCPCS: 99282

== ENCOUNTER → 2017-06-09 | Outpatient (CLI) | payer MEDICAID ==
--- NOTE | 2017-06-09 15:34 | RADIOLOGY REPORT (SQ) ---
EXAM DESCRIPTION: CT ORBIT/SELLA WITHOUT COMPLETED DATE/TIME: 06/09/2017 8:04 am REASON FOR STUDY: HEADACHE (R51) R51 HEADACHE COMPARISON: 07/08/2016. TECHNIQUE: Noncontrasted images through the orbits windowed for bone and soft tissue. Additional co [place] and sagittal reconstructed images reviewed. All images stored on PACS. All CT scanners at this facility use dose modulation, iterative reconstruction, and/or weight based d osing when appropriate to reduce radiation dose to as low as reasonably achievable (ALARA). [facility]: Dose Right [facility]: CareDose [facility]: Dose Right [facility]: Teradose 4D [facility]: Infinite Monkeys RADIATION DOSE: mGy. LIMITATIONS: None. FINDINGS: FACIAL BONES: No acute fracture or bone lesion. Previously seen fractures of the right ma xillary sinus gunderson have healed. Minimal residual irregularity of the lateral wall of the right maxi llary sinus. ORBITS: Intact. No acute fracture. Previously seen right orbital floor and lateral wall fractures h ave healed. Minimal residual irregularity of the lateral wall of the right orbit. Symmetric intact globes and retroorbital soft tissues. PARANASAL SINUSES: Clear. No significant mucosal thickening, mass or fluid. No nasal polyps. Maxilla ry sinus outlets are patent. SOFT TISSUES: No mass or edema. INFERIOR BRAIN: Limited view. No acute findings. OTHER: No other significant finding. IMPRESSION: NO ACUTE FINDINGS. PREVIOUSLY SEEN RIGHT-SIDED FRACTURES HAVE HEALED. TECHNICAL DOCUMENTATION: JOB ID: [id number] Quality ID # [id number]: Final reports with documentation of one or more dose reduction techniques (e.g., Au tomated exposure control, adjustment of the mA and/or kV according to patient size, use of iterative reconstruction technique) 2010 [employer]- All Rights Reserved Reading location - IP/workstation name: [email or web address]
== END ==
LOC: RAD 07:51
PROVIDERS: ATTEND Physician Assistant
DX: R51 Headache (principal)
CPT/HCPCS: 70480

== ENCOUNTER 2017-06-22 22:32 | Emergency (ER) | payer MEDICAID ==
[2017-06-22] MEDS ORDERED: HYDROCODONE/ACETAMINOPHEN 5-325 MG TABLET PO ONE (23:51)
--- NOTE | 2017-06-22 23:54 | ER Document Report ---
HPI - HPI Pain Level: 4 Notes: Patient is a 51-year-old female with a history of hypertension and mental health disorders who presents to the ED complaining of right posterolateral rib pain status post injury 2 days ago. Patient states that she was cleaning the stairs when she slipped and hit her right ribs against 1 of the lower stairs. Patient states that 3 stairs were involved at the bottom of the staircase. Patient states that she has had soreness in that area since then, but has been able to perform her ADLs without any difficulties. Patient states that the pain is primarily there with twisting movements. Patient has not noticed any dyspnea on exertion or chest pains. She is eating and drinking without difficulties. She is urinating normally and having normal bowel movements. Patient has not noticed any right red blood in her urine or abdominal/flank bruising. Denies any drug allergies. No other concerns or complaints at this time. Denies any headache, fever, head injury, LOC, neck pain, changes in vision/speech/mentation/hearing, URI, sore throat, chest pain, palpitations, syncope, cough, shortness of breath, wheeze, dyspnea, abdominal pain, nausea/ vomiting/diarrhea, urinary retention, dysuria, hematuria, loss of control of bowel or bladder, numbness/tingling, saddle anesthesia, muscle paralysis/ weakness, or rash. - ROS Systems Reviewed and Negative: Yes All other systems reviewed and negative - REPRODUCTIVE Reproductive: DENIES: : Past Medical History - Social History Smoking Status: Unknown if Ever Smoked Family History: None - Past Medical History Cardiac Medical History: Reports: Hx Congestive Heart Failure, Hx Coronary Artery Disease, Hx Heart Attack - 2007 with stent, Hx Hypercholesterolemia Denies: Hx Hypertension Pulmonary Medical History: Reports: Hx Asthma, Hx Bronchitis, Hx COPD, Hx Pneumonia Denies: Hx Tuberculosis Neurological Medical History: Denies: Hx Cerebrovascular Accident, Hx Seizures Renal/ Medical History: Denies: Hx End Stage Renal Disease, Hx Kidney Stones, Hx Peritoneal Dialysis GI Medical History: Reports: Hx Gastroesophageal Reflux Disease. Denies: Hx Cirrhosis, Hx Gastritis, Hx Hepatitis, Hx Irritable Bowel, Hx Ulcer Musculoskeltal Medical History: Denies Hx Arthritis, Denies Hx Fibromyalgia, Denies Hx Gout, Denies Hx Multiple Sclerosis, Reports Hx Muscle Spasm - lower back, Denies Hx Musculoskeletal Deformity Psychiatric Medical History: Reports: Hx Anxiety, Hx Bipolar Disorder, Hx Depression Denies: Hx Schizophrenia Infectious Medical History: Denies: Hx Hepatitis Past Surgical History: Reports: Hx Appendectomy, Hx Cardiac Catheterization, Hx Cardiac Surgery - stent x 2, Hx Coronary Stent - x2 2008 at [facility] in [place], Hx Hysterectomy, Hx Kidney (Renal Surgery). Denies: Hx Pacemaker - Immunizations Immunizations up to date: Yes Hx Diphtheria, Pertussis, Tetanus Vaccination: Yes Hx Pneumococcal Vaccination: 05/10/12 Vertical Provider Document - CONSTITUTIONAL Agree With Documented VS: No - 100/67 BP with 77 pulse during my eval. Notes: PHYSICAL EXAMINATION: GENERAL: Well-appearing, well-nourished and in no acute distress. A&Ox4. Answers questions appropriately. HEAD: Atraumatic, normocephalic. Non-tender. No bob sign EYES: Pupils equal round and reactive to light, extraocular movements intact, sclera anicteric, conjunctiva are normal. No raccoon eyes/entrapment ENT: Nares patent and without discharge. oropharynx clear without exudates. No tonsilar hypertrophy or erythema. Moist mucous membranes. NECK: Normal range of motion, supple without lymphadenopathy. No rigidity. No midline tenderness. Spurling negative. NEXUS negative. Chest: No flail chest. equal rise/fall. Non-tender to anterior ribs/chest. No ecchymosis. + tenderness to the rt posterolateral ribs w/o obvious deformity /bruising/swelling. LUNGS: Breath sounds clear to auscultation bilaterally and equal. No wheezes rales or rhonchi. HEART: Regular rate and rhythm without murmurs, rubs, gallops. ABDOMEN: Soft, nontender, nondistended abdomen. No guarding, no rebound. No masses appreciated. Normal bowel sounds present. No CVA tenderness bilaterally. No ecchymosis to abdomen or flanks b/l. Musculoskeletal: Ext b/l: FROM to passive/active. Strength 5+/5. No deficits noted. No bony tenderness of extremities. Back: FROM to passive/active. Strength 5+/5. No vertebral point tenderness, stepoffs, or deformities. No other bony tenderness or ecchymosis. SLR negative b/l. Extremities: No cyanosis, clubbing, or edema b/l. Peripheral pulses 2+. Capillary refill less than 2 seconds. NEUROLOGICAL: Cranial nerves grossly intact. Normal speech, normal gait. Normal sensory, motor exams. Reflexes 2+ b/l. LAZARA's negative. PSYCH: Normal mood, normal affect. SKIN: Warm, Dry, normal turgor, no rashes or lesions noted. - INFECTION CONTROL TRAVEL OUTSIDE OF THE [place]. IN LAST 30 DAYS: No Course - Re-evaluation Re-evalutation: 06/22/17 00:49 Patient is an afebrile, well-hydrated, 51-year-old female who presents to the ED with a rib contusion, suspect superficial and benign at this time. Vitals are acceptable. PE is otherwise unremarkable. I did recheck the blood pressure and pulse during my exam and was noted to be near her normal. X-ray was unremarkable for any acute pathology. I did inspect a visual urine on the patient which did not show any ludivina blood. Patient is tolerating p.o. without any difficulties. Low suspicion for any ACS, PE, pneumothorax, pericarditis, dissection, respiratory compromise, severe dehydration, sepsis, meningitis, acute abdomen, fracture, or other systemic emergent condition at this time. Patient is aware that her condition can change from initial presentation and she needs to monitor symptoms closely and seek medical attention for any acute changes. Recommend conservative measures for symptoms. Recheck with your PCM in 3-5 days. Return to the ED with any worsening/concerning symptoms otherwise as reviewed in discharge. Patient is in agreement. - Vital Signs Vital signs: Temp Pulse Resp BP Pulse Ox 98.6 F 75 16 89/55 L 95 06/22/17 23:16 06/22/17 23:16 06/22/17 23:16 06/22/17 23:16 06/22/17 23:16 Discharge - Discharge Clinical Impression: Contusion of rib on right side Qualifiers: Encounter type: initial encounter Qualified Code(s): S20.211A - Contusion of right front wall of thorax, initial encounter Condition: Stable Disposition: HOME, SELF-CARE Instructions: Rib Contusion ([facility]) Additional Instructions: Rest, Ice Tylenol/ibuprofen as needed Light stretches daily Strength exercises as able Moist heat and massage may help F/u with your PCP in 3-5 days for a recheck Consider consult(s) with Orthopedics/physical therapy for ongoing/worsening symptoms Return to the ED with any worsening symptoms and/or development of fever, headache, chest pain, palpitations, syncope, shortness of breath, trouble breathing, abdominal pain, n/v/d, muscle weakness/paralysis, numbness/tingling, swelling, redness, or other worsening symptoms that are concerning to you. Prescriptions: Naproxen 500 mg PO BID PRN #30 tablet PRN Reason: Referrals: [facility] [Provider Group] - Follow up as needed
--- NOTE | 2017-06-23 00:36 | RADIOLOGY REPORT (SQ) ---
EXAM DESCRIPTION: RIBS RIGHT W/PA CHEST CLINICAL HISTORY: right posterolateral rib pain s/p fall COMPARISON: 01/06/2016 FINDINGS: Single view of the chest and 3 views of the right ribs. The cardiomediastinal silhouette has normal size and contour. No consolidation, pneumothorax, or pleural effusion. Upper abdominal soft tissues unremarkable. No right rib fractures identified. IMPRESSION: 1. No right rib fractures identified.
[2017-06-23 01:05] VITALS: BP 102/62
== END 2017-06-23 01:05 | disposition home or self-care (01) ==
LOC: ER 22:32
DX: S20.211A Contusion of right front wall of thorax, initial encounter (principal); R07.81 Pleurodynia; W10.9XXA Fall (on) (from) unspecified stairs and steps, initial encounter; Y93.E9 Activity, other interior property and clothing maintenance; I10 Essential (primary) hypertension; I50.9 Heart failure, unspecified; I25.10 Atherosclerotic heart disease of native coronary artery without angina pectoris; E78.00 Pure hypercholesterolemia, unspecified; J44.9 Chronic obstructive pulmonary disease, unspecified; I25.2 Old myocardial infarction
CPT/HCPCS: 99283

== ENCOUNTER 2017-07-04 17:13 | Emergency (ER) | payer MEDICAID ==
[2017-07-04 17:21] VITALS: BP 123/70
[2017-07-04] MEDS ORDERED: ACETAMINOPHEN 325 MG TABLET PO ONE (18:58)
--- NOTE | 2017-07-04 20:10 | ER Document Report ---
ED General - General Chief Complaint: Knee Injury Stated Complaint: LEG INJURY Time Seen by Provider: 07/04/17 18:51 TRAVEL OUTSIDE OF THE [place]. IN LAST 30 DAYS: No - HPI Notes: 51-year-old female who presents with right knee injury. Patient has a history of chronic weakness in her right lower extremity secondary to a remote injury after cardiac catheterization. States that she was walking on some landscape rock when she had fallen after tripping and injured her right knee. Complains of sharp achy pain, infrapatellar bruising and laceration to her anterior patellar region. Nonradiating pain, no other injury. No use of anticoagulants. No other modifying factors, no other associated symptoms, no other provocative or palliative factors. - Related Data Allergies/Adverse Reactions: No Known Allergies Allergy (Verified 07/04/17 17:13) Past Medical History - Social History Smoking Status: Current Every Day Smoker Chew tobacco use (# tins/day): No Frequency of alcohol use: None Drug Abuse: None Family History: None Patient has suicidal ideation: No Patient has homicidal ideation: No - Past Medical History Cardiac Medical History: Reports: Hx Congestive Heart Failure, Hx Coronary Artery Disease, Hx Heart Attack - 2008 with stent, Hx Hypercholesterolemia Denies: Hx Hypertension Pulmonary Medical History: Reports: Hx Asthma, Hx Bronchitis, Hx COPD, Hx Pneumonia Denies: Hx Tuberculosis Neurological Medical History: Denies: Hx Cerebrovascular Accident, Hx Seizures Renal/ Medical History: Denies: Hx End Stage Renal Disease, Hx Kidney Stones, Hx Peritoneal Dialysis GI Medical History: Reports: Hx Gastroesophageal Reflux Disease. Denies: Hx Cirrhosis, Hx Gastritis, Hx Hepatitis, Hx Irritable Bowel, Hx Ulcer Musculoskeltal Medical History: Denies Hx Arthritis, Denies Hx Fibromyalgia, Denies Hx Gout, Denies Hx Multiple Sclerosis, Reports Hx Muscle Spasm - lower back, Denies Hx Musculoskeletal Deformity Psychiatric Medical History: Reports: Hx Anxiety, Hx Bipolar Disorder, Hx Depression Denies: Hx Schizophrenia Infectious Medical History: Denies: Hx Hepatitis Past Surgical History: Reports: Hx Appendectomy, Hx Cardiac Catheterization, Hx Cardiac Surgery - stent x 2, Hx Coronary Stent - x2 2008 at [facility] in [place], Hx Hysterectomy, Hx Kidney (Renal Surgery). Denies: Hx Pacemaker - Immunizations Immunizations up to date: Yes Hx Diphtheria, Pertussis, Tetanus Vaccination: Yes Hx Pneumococcal Vaccination: 05/10/12 Review of Systems - Review of Systems Notes: Denies any headache, vomiting, chest pain or abdominal pain Physical Exam - Vital signs Vitals: Temp Pulse Resp BP Pulse Ox 98.2 F 78 14 123/70 97 07/04/17 17:20 07/04/17 17:20 07/04/17 17:20 07/04/17 17:20 07/04/17 17:20 - Notes Notes: General: Well-developed, well-nourished HEENT: Normocephalic. No external trauma noted. No bob sign, no hemotympanum. Mucosa is moist. No intraoral trauma. Neck: Midline trachea, no JVD. No midline cervical spine tenderness. No step- off or deformity. Chest: Normal excursion, no accessory muscle use. No gross trauma. Abdomen: Soft, nondistended. Nontender. No bruising. Pelvis: Stable. Vascular: Strong and symmetric upper and lower extremity pulses. Well-perfused extremities. Motor: Normal tone and power. Neurologic: Alert, nonfocal. Sensation symmetric and intact. Skin: No significant lacerations or purpura. Extremities: No cyanosis. Superficial laceration over the anterior patellar. Tenderness noted about the infrapatellar and patellar region, no crepitus step- off deformity, no ligamentous laxity, range of motion limited by pain Course - Re-evaluation Re-evalutation: Well-appearing female with isolated knee injury. I proceeded to order analgesics and x-ray. However, the patient apparently eloped prior to my ability to reevaluate her. - Vital Signs Vital signs: Temp Pulse Resp BP Pulse Ox 98.2 F 78 14 123/70 97 07/04/17 17:20 07/04/17 17:20 07/04/17 17:20 07/04/17 17:20 07/04/17 17:20 Discharge - Discharge Clinical Impression: Knee pain Disposition: ELOPED
== END 2017-07-04 19:15 | disposition left against medical advice (07) ==
LOC: ER 17:13
DX: S89.91XA Unspecified injury of right lower leg, initial encounter (principal); M25.561 Pain in right knee; M79.604 Pain in right leg; R53.1 Weakness; W18.09XA Striking against other object with subsequent fall, initial encounter; F17.200 Nicotine dependence, unspecified, uncomplicated; I25.10 Atherosclerotic heart disease of native coronary artery without angina pectoris; I25.2 Old myocardial infarction; J44.9 Chronic obstructive pulmonary disease, unspecified
CPT/HCPCS: 99281

== ENCOUNTER 2017-09-02 20:20 | Emergency (ER) | payer MEDICAID ==
[2017-09-02 21:37] LABS: ABSOLUTE BASOPHILS # (AUTO) 0.1 10^3/uL (0.0-0.2); ABSOLUTE EOSINOPHILS # (AUTO) 0.5 10^3/uL (0.0-0.6); ABSOLUTE LYMPHOCYTES (AUTO) 2.3 10^3/uL (0.5-4.7); ABSOLUTE MONOCYTES (AUTO) 0.4 10^3/uL (0.1-1.4); ABSOLUTE NEUT (AUTO) 2.8 10^3/uL (1.7-8.2); EOSINOPHILS % (AUTO) 7.7 % (0-6); HEMATOCRIT 38.7 % (36.0-47.0); HEMOGLOBIN 13.3 g/dL (12.0-15.5); LYMPHOCYTES % (AUTO) 38.9 % (13-45); MEAN CORPUSCULAR HEMOGLOBIN 31.8 pg (27.0-33.4); MEAN CORPUSCULAR HGB CONC 34.4 g/dL (32.0-36.0); MEAN CORPUSCULAR VOLUME 93 fl (80-97); PLATELET COUNT 252 10^3/uL (150-450); RED BLOOD COUNT 4.18 10^6/uL (3.72-5.28); RED CELL DISTRIBUTION WIDTH 13.4 % (11.5-14.0); SEGMENTED NEUTROPHILS % (AUTO) 46.4 % (42-78); TOTAL CELLS COUNTED % (AUTO) 100 %; WHITE BLOOD COUNT 5.9 10^3/uL (4.0-10.5)
--- NOTE | 2017-09-02 21:50 | ER Document Report ---
ED General - General Chief Complaint: Weakness Stated Complaint: WEAKNESS Time Seen by Provider: 09/02/17 21:00 Notes: Patient is a 51-year-old female with a past medical history of hypertension, bipolar disorder, anxiety who presents with 4 days of fatigue, general weakness , and body aches. She reports that the symptoms started gradually have gotten progressively worse since that time. Nothing improves or worsens her symptoms. She is uncertain whether or not she has had similar symptoms in the past. She has not seen her primary doctor regarding today's concerns. She does note that she has had some mild increased cough and shortness of breath relative to her baseline COPD. She denies any fever, vomiting, headache, neck pain, focal weakness or numbness. Her at the bedside contributes that the patient began to have these symptoms after multiple for medications including quetiapine , lamotrigine, hydroxyzine, and buspirone were increased. TRAVEL OUTSIDE OF THE [place] IN LAST 30 DAYS: No - Related Data Allergies/Adverse Reactions: No Known Allergies Allergy (Verified 09/02/17 20:21) Past Medical History - General Information source: Patient - Social History Smoking Status: Current Every Day Smoker Chew tobacco use (# tins/day): No Frequency of alcohol use: None Drug Abuse: None Lives with: Spouse/Significant other Family History: Reviewed & Not Pertinent Patient has suicidal ideation: No Patient has homicidal ideation: No - Past Medical History Cardiac Medical History: Reports: Hx Congestive Heart Failure, Hx Coronary Artery Disease, Hx Heart Attack - 2008 with stent, Hx Hypercholesterolemia Denies: Hx Hypertension Pulmonary Medical History: Reports: Hx Asthma, Hx Bronchitis, Hx COPD, Hx Pneumonia Denies: Hx Tuberculosis Neurological Medical History: Denies: Hx Cerebrovascular Accident, Hx Seizures Renal/ Medical History: Denies: Hx End Stage Renal Disease, Hx Kidney Stones, Hx Peritoneal Dialysis GI Medical History: Reports: Hx Gastroesophageal Reflux Disease. Denies: Hx Cirrhosis, Hx Gastritis, Hx Hepatitis, Hx Irritable Bowel, Hx Ulcer Musculoskeltal Medical History: Denies Hx Arthritis, Denies Hx Fibromyalgia, Denies Hx Gout, Denies Hx Multiple Sclerosis, Reports Hx Muscle Spasm - lower back, Denies Hx Musculoskeletal Deformity Psychiatric Medical History: Reports: Hx Anxiety, Hx Bipolar Disorder, Hx Depression Denies: Hx Schizophrenia Infectious Medical History: Denies: Hx Hepatitis Past Surgical History: Reports: Hx Appendectomy, Hx Cardiac Catheterization - x3 , Hx Cardiac Surgery - stent x 2, Hx Coronary Stent - x2 2008 at [facility] in [place], Hx Hysterectomy, Hx Kidney (Renal Surgery), Hx Orthopedic Surgery - nose. Denies: Hx Pacemaker - Immunizations Immunizations up to date: Yes Hx Diphtheria, Pertussis, Tetanus Vaccination: Yes Hx Pneumococcal Vaccination: 05/10/12 Review of Systems - Review of Systems Notes: Constitutional: Negative for fever. Positive for fatigue HENT: Negative for sore throat. Eyes: Negative for visual changes. Cardiovascular: Negative for chest pain. Respiratory: Negative for shortness of breath. Gastrointestinal: Negative for abdominal pain, vomiting or diarrhea. Genitourinary: Negative for dysuria. Musculoskeletal: Negative for back pain. Skin: Negative for rash. Neurological: Negative for headaches, weakness or numbness. 10 point ROS negative except as marked above and in HPI. Physical Exam - Vital signs Vitals: Temp Pulse Resp BP Pulse Ox 98.6 F 64 16 120/64 97 09/02/17 20:35 09/02/17 20:35 09/02/17 20:35 09/02/17 20:35 09/02/17 20:35 Interpretation: Normal Notes: PHYSICAL EXAMINATION: GENERAL: Well-appearing, well-nourished and in no acute distress. HEAD: Atraumatic, normocephalic. EYES: Pupils equal round and reactive to light, extraocular movements intact, sclera anicteric, conjunctiva are normal. ENT: nares patent, oropharynx clear without exudates. Moist mucous membranes. NECK: Normal range of motion, supple without lymphadenopathy LUNGS: Breath sounds clear to auscultation bilaterally and equal. No wheezes rales or rhonchi. HEART: Regular rate and rhythm without murmurs ABDOMEN: Soft, nontender, normoactive bowel sounds. No guarding, no rebound. No masses appreciated. EXTREMITIES: Normal range of motion, no pitting or edema. No cyanosis. NEUROLOGICAL: Face symmetric. Tongue protrudes midline. Extraocular motions intact. Pupils are 2 mm and equally reactive. Normal speech, normal gait. 5 out of 5 strength in both the distal and proximal upper and lower extremities bilaterally. Sensation is grossly intact throughout. Finger to nose testing normal. Pronator drift normal. PSYCH: Normal mood, normal affect. SKIN: Warm, Dry, normal turgor, no rashes or lesions noted. Course - Re-evaluation Re-evalutation: 09/02/17 21:49 Patient presents with multiple vague complaints that did not appear to be concerning for any acute life-threatening pathology. Vitals are within normal limits at triage and at time of discharge. Physical examination is unremarkable. Patient has tolerated oral intake without difficulty. Patient was not noted to be in distress at any point during their ER visit. At this time, based on the reassuring evaluation, I do not suspect an acute IN, pulmonary embolus, aortic dissection, acute intra-abdominal pathology, stroke, or sepsis. I suspect the patient's symptoms are secondary to recent increases in her medications including quetiapine, lamotrigine, hydroxyzine, and buspirone all of which were increased the day before patient had onset of her symptoms. I have encouraged her to discuss with her general doctor about the side effects that she is having related to these medications and have asked her to discontinue the hydroxyzine. Will discharge with return precautions and follow-up recommendations. Verbal discharge instructions given a the bedside and opportunity for questions given. Medication warnings reviewed. Patient is in agreement with this plan and has verbalized understanding of return precautions and the need for primary care follow-up in the next 24-72 hours. - Vital Signs Vital signs: Temp Pulse Resp BP Pulse Ox 97.6 F 58 L 16 100/59 L 96 09/02/17 23:17 09/02/17 23:17 09/02/17 23:17 09/02/17 23:17 09/02/17 23:17 - Laboratory Result Diagrams: 09/02/17 21:25 09/02/17 21:25 Laboratory results interpreted by me: 09/02/17 09/02/17 09/02/17 21:17 21:25 21:25 Eosinophils % 7.7 H Glucose 117 H POC Glucose 126 H Total Bilirubin 0.1 L - Diagnostic Test Radiology reviewed: Image reviewed, Reports reviewed Radiology results interpreted by me: 09/03/17 04:13 Chest x-ray: Hyperinflation consistent with COPD, no acute infiltrates - EKG Interpretation by Me Additional EKG results interpreted by me: 09/03/17 04:13 Sinus bradycardia. Rate 59. No ST elevations or depressions. QTC is 429. Discharge - Discharge Clinical Impression: Weakness, Medication side effect Fatigue Qualifiers: Fatigue type: unspecified Qualified Code(s): R53.83 - Other fatigue Condition: Good Disposition: HOME, SELF-CARE Additional Instructions: You should follow-up with your primary care doctor about the recent medication adjustments that you underwent as this is likely the cause of your fatigue. Please discontinue the use of hydroxyzine. Continue all additional medications as prescribed until we discussed with your primary care doctor. Your labs and chest x-ray are otherwise normal today. Return if you develop fever greater than 100.4F, persistent vomiting, focal weakness, confusion or pass out. Please also return if you have any additional symptoms that are worrisome to you. Referrals: MIREYA BRUMFIELD PA-C [Primary Care Provider] - Follow up as needed
[2017-09-02 21:55] LABS: ALANINE AMINOTRANSFERASE 24 U/L (9-52); ALBUMIN 4.1 g/dL (3.5-5.0); ALKALINE PHOSPHATASE 69 U/L (38-126); ANION GAP 12 (5-19); ASPARTATE AMINO TRANSFERASE 21 U/L (14-36); BILIRUBIN,DIRECT 0.1 mg/dL (0.0-0.4); BILIRUBIN,TOTAL 0.1 mg/dL (0.2-1.3); BLOOD UREA NITROGEN 11 mg/dL (7-20); CALCIUM 9.8 mg/dL (8.4-10.2); CARBON DIOXIDE 23 mmol/L (22-30); CHLORIDE 107 mmol/L (98-107); GLUCOSE 117 mg/dL (75-110); POTASSIUM 4.4 mmol/L (3.6-5.0); SODIUM 141.8 mmol/L (137-145); TOTAL PROTEIN 7.1 g/dL (6.3-8.2)
--- NOTE | 2017-09-02 22:18 | RADIOLOGY REPORT (SQ) ---
EXAM DESCRIPTION: CHEST SINGLE VIEW COMPLETED DATE/TIME: 09/02/2017 10:08 pm REASON FOR STUDY: sob COMPARISON: None. NUMBER OF VIEWS: One view. TECHNIQUE: Single frontal radiographic view of the chest acquired. LIMITATIONS: None. FINDINGS: LUNGS AND PLEURA: No opacities, masses or pneumothorax. No pleural effusion. Attenuated bl ood vessels and flattened [place]-diaphragms. MEDIASTINUM AND HILAR STRUCTURES: No masses. Contour normal. HEART AND VASCULAR STRUCTURES: Heart normal in size. Normal vasculature. BONES: No acute findings. HARDWARE: None in the chest. OTHER: No other significant finding. IMPRESSION: COPD. NO ACUTE RADIOGRAPHIC FINDING IN THE CHEST. TECHNICAL DOCUMENTATION: JOB ID: [id number] [employer]- All Rights Reserved Reading location - IP/workstation name: [email or web address]
[2017-09-02 22:21] LABS: APPEARANCE,URINE CLEAR; BILIRUBIN,URINE NEGATIVE (NEGATIVE); COLOR,URINE STRAW; GLUCOSE, URINE NEGATIVE (NEGATIVE); KETONES,URINE NEGATIVE (NEGATIVE); LEUKOCYTE ESTERASE,URINE NEGATIVE (NEGATIVE); NITRITE,URINE NEGATIVE (NEGATIVE); PROTEIN,URINE NEGATIVE (NEGATIVE); URINE SPECIFIC GRAVITY 1.012; UROBILINOGEN,URINE NEGATIVE mg/dL (<2.0)
[2017-09-02 23:53] VITALS: BP 100/59
--- NOTE | 2017-09-03 08:25 | EKG REPORT ---
SEVERITY:- ABNORMAL ECG - PROBABLE SINUS RHYTHM CANNOT R/O ACCELERATED JUNCTIONAL ESCAPE RHYTHM LEFT AXIS DEVIATION LOW VOLTAGE IN FRONTAL LEADS CONSIDER ANTERIOR INFARCT NONSPECIFIC T ABNORMALITIES, DIFFUSE LEADS : Confirmed by: Leonardo Seymour 03-Sep-2017 08:25:10
== END 2017-09-02 23:30 | disposition home or self-care (01) ==
LOC: ER 20:20
DX: R53.1 Weakness (principal); R53.83 Other fatigue; T50.905A Adverse effect of unspecified drugs, medicaments and biological substances, initial encounter; R00.1 Bradycardia, unspecified; R52 Pain, unspecified; J44.9 Chronic obstructive pulmonary disease, unspecified; R05 Cough; R06.02 Shortness of breath; F17.200 Nicotine dependence, unspecified, uncomplicated; I25.10 Atherosclerotic heart disease of native coronary artery without angina pectoris; I10 Essential (primary) hypertension; F31.9 Bipolar disorder, unspecified; F41.9 Anxiety disorder, unspecified; Z79.899 Other long term (current) drug therapy
CPT/HCPCS: 36415; 71045; 80053; 81001; 82962; 84484; 84703; 85025; 93005; 93010; 99285

== ENCOUNTER 2017-09-25 21:02 | Emergency (ER) | payer MEDICAID ==
[2017-09-25] MEDS ORDERED: DEXAMETHASONE SOD PHOS INJ 10 MG/1 ML VIAL IV ONE (23:12)
[2017-09-25] MEDS ORDERED: DIPHENHYDRAMINE HCL 50 MG/ML VIAL IV ONE (23:12)
[2017-09-25] MEDS ORDERED: METOCLOPRAMIDE HCL INJ/PF 10 MG/2 ML SDV IV ONE (23:12)
--- NOTE | 2017-09-25 23:13 | ER Document Report ---
ED Headache - General Chief Complaint: Headache Stated Complaint: HEADACHE Time Seen by Provider: 09/25/17 23:02 Notes: Patient is a 51-year-old female who comes emergency department for chief complaint of headache. She states she has a migraine, she states she has had headaches like this in the past, she has been getting it intermittently for the past couple days but today was worse. She denies sudden onset, it has slowly worsened, she reports throbbing in the front of her head behind both eyes, nausea, light and sound sensitivity, and earlier vision became a little bit blurry but then this resolved. She denies focal numbness or weakness. She denies head injury, neck pain, fever or chills. TRAVEL OUTSIDE OF THE [place] IN LAST 30 DAYS: No - Related Data Allergies/Adverse Reactions: No Known Allergies Allergy (Verified 09/02/17 20:21) Past Medical History - General Information source: Patient - Social History Smoking Status: Current Every Day Smoker Smoking Education Provided: Yes - <3 min Frequency of alcohol use: Occasional Drug Abuse: None Lives with: Spouse/Significant other Family History: Reviewed & Not Pertinent - Past Medical History Cardiac Medical History: Reports: Hx Congestive Heart Failure, Hx Coronary Artery Disease, Hx Heart Attack - 2008 with stent, Hx Hypercholesterolemia Denies: Hx Hypertension Pulmonary Medical History: Reports: Hx Asthma, Hx Bronchitis, Hx COPD, Hx Pneumonia Denies: Hx Tuberculosis Neurological Medical History: Denies: Hx Cerebrovascular Accident, Hx Seizures Renal/ Medical History: Denies: Hx End Stage Renal Disease, Hx Kidney Stones, Hx Peritoneal Dialysis GI Medical History: Reports: Hx Gastroesophageal Reflux Disease. Denies: Hx Cirrhosis, Hx Gastritis, Hx Hepatitis, Hx Irritable Bowel, Hx Ulcer Musculoskeltal Medical History: Denies Hx Arthritis, Denies Hx Fibromyalgia, Denies Hx Gout, Denies Hx Multiple Sclerosis, Reports Hx Muscle Spasm - lower back, Denies Hx Musculoskeletal Deformity Psychiatric Medical History: Reports: Hx Anxiety, Hx Bipolar Disorder, Hx Depression Denies: Hx Schizophrenia Infectious Medical History: Denies: Hx Hepatitis Past Surgical History: Reports: Hx Appendectomy, Hx Cardiac Catheterization - x3 , Hx Cardiac Surgery - stent x 2, Hx Coronary Stent - x2 2008 at [facility] in [place], Hx Hysterectomy, Hx Kidney (Renal Surgery), Hx Orthopedic Surgery - nose. Denies: Hx Pacemaker - Immunizations Immunizations up to date: Yes Hx Diphtheria, Pertussis, Tetanus Vaccination: Yes Hx Pneumococcal Vaccination: 05/10/12 Review of Systems - Review of Systems Constitutional: No symptoms reported EENT: No symptoms reported Cardiovascular: No symptoms reported Respiratory: No symptoms reported Gastrointestinal: See HPI Genitourinary: No symptoms reported Female Genitourinary: No symptoms reported Musculoskeletal: No symptoms reported Skin: No symptoms reported Hematologic/Lymphatic: No symptoms reported Neurological/Psychological: See HPI Physical Exam - Vital signs Vitals: Temp Pulse Resp BP Pulse Ox 98.1 F 68 16 109/62 97 09/25/17 22:51 09/25/17 22:51 09/25/17 22:51 09/25/17 22:51 09/25/17 22:51 - Notes Notes: GENERAL: Alert, interacts well. No acute distress. Patient is frail and appears older than her stated age. HEAD: Normocephalic, atraumatic. EYES: Pupils equal, round, and reactive to light. Extraocular movements intact. ENT: Oral mucosa moist, tongue midline. NECK: Full range of motion. Supple. Trachea midline. LUNGS: Faint scattered expiratory wheezes, good lung auscultation otherwise, no respiratory distress. HEART: Regular rate and rhythm. No murmur ABDOMEN: Soft, non-tender. Non-distended. Bowel sounds present in all 4 quadrants. EXTREMITIES: Moves all 4 extremities spontaneously. No edema, normal radial and dorsalis pedis pulses bilaterally. No cyanosis. BACK: no cervical, thoracic, lumbar midline tenderness. No saddle anesthesia, normal distal neurovascular exam. NEUROLOGICAL: Alert and oriented x3. Normal speech. [cranial nerves II through XII grossly intact]. PSYCH: Normal affect, normal mood. SKIN: Warm, dry, normal turgor. No rashes or lesions noted. Course - Re-evaluation Re-evalutation: Patient is not in distress on initial evaluation, illogical exam, reports symptoms similar to the past that she has had. No sudden onset headache or headache of maximum intensity at onset, intermittent for several days, symptoms consistent with a migraine. Low suspicion of intracranial hemorrhage, subarachnoid hemorrhage, meningitis, venous sinus thrombosis. Patient medicated for some expected migraine, on reevaluation patient states her headache is completely gone, she is smiling, she is well-appearing. Discussed treatments, decision was made to provide her with nausea medication that she can but combined [id number] medications for headaches in the future, discussed follow-up, return precautions, smoking cessation, patient states understanding and agreement with plan. - Vital Signs Vital signs: Temp Pulse Resp BP Pulse Ox 98.1 F 72 16 95/60 L 96 09/25/17 22:51 09/26/17 01:06 09/26/17 01:06 09/26/17 01:06 09/26/17 01:06 Discharge - Discharge Clinical Impression: Headache Qualifiers: Headache type: unspecified Headache chronicity pattern: acute headache Intractability: not intractable Qualified Code(s): R51 - Headache Condition: Stable Disposition: HOME, SELF-CARE Additional Instructions: Your symptoms and response to treatment are consistent with a migraine. Rest, drink plenty of fluids. If needed you can take the Phenergan prescribed along with Tylenol for headaches, Benadryl can be used as well. Follow-up with primary care for additional evaluation and management. Stop smoking. Return for any concerning or worsening symptoms including developing fever, vomiting, severe returned headache, or any other concerning symptoms. Prescriptions: Promethazine HCl [Phenergan 25 mg Tablet] 1 - 2 tab PO Q6H PRN #15 tablet PRN Reason: Referrals: MIREYA BRUMFIELD PA-C [Primary Care Provider] - Follow up as needed
[2017-09-26 01:37] VITALS: BP 95/60
== END 2017-09-26 01:25 | disposition home or self-care (01) ==
LOC: ER 21:02
DX: R51 Headache (principal); R11.0 Nausea; H53.149 Visual discomfort, unspecified; I25.10 Atherosclerotic heart disease of native coronary artery without angina pectoris; I25.2 Old myocardial infarction; J44.9 Chronic obstructive pulmonary disease, unspecified; F17.200 Nicotine dependence, unspecified, uncomplicated
CPT/HCPCS: 99283; 96374; 96375; J1200; J2765; J1100

== ENCOUNTER 2017-09-30 20:03 | Emergency (ER) | payer MEDICAID ==
[2017-09-30] MEDS ORDERED: ASPIRIN 81 MG TABLET, CHEWABLE PO ONE (20:38)
--- NOTE | 2017-09-30 20:40 | ER Document Report ---
ED Medical Screen (RME) - General Chief Complaint: Chest Wall Pain Stated Complaint: CHEST BONE PAIN Time Seen by Provider: 09/30/17 20:32 Mode of Arrival: Ambulatory Information source: Patient TRAVEL OUTSIDE OF THE [place] IN LAST 30 DAYS: No - HPI Patient complains to provider of: chest pain Notes: 09/30/17 20:39 Patient is here with complaints of chest pain. She states that she woke up this morning and has pain in the middle of her chest. The pain is worse when she turns, moves, moves her arms, coughs. She denies any trauma or injury. She denies any fever. She denies any difficulty breathing. She denies any significant cough. She denies any recent long trips or surgeries, cancer, hormone use, history of DVT or PE. She states that her normal blood pressure is in the 80s-90s systolically. She does have a prior history of congestive heart failure. Physical exam: Patient is in no distress. Lungs are clear. Anterior chest wall tenderness to palpation. An initial examination was made on the patient as part of the triage process, and it was determined a more comprehensive evaluation was necessary. Initial labs were ordered and patient was transferred to another provider in the ED who assumed care and finished evaluation and plan. - Related Data Allergies/Adverse Reactions: No Known Allergies Allergy (Verified 09/02/17 20:21) Past Medical History - Social History Frequency of alcohol use: None Drug Abuse: None - Past Medical History Cardiac Medical History: Reports: Hx Congestive Heart Failure, Hx Coronary Artery Disease, Hx Heart Attack - 2007 with stent, Hx Hypercholesterolemia Denies: Hx Hypertension Pulmonary Medical History: Reports: Hx Asthma, Hx Bronchitis, Hx COPD, Hx Pneumonia Denies: Hx Tuberculosis Neurological Medical History: Denies: Hx Cerebrovascular Accident, Hx Seizures Renal/ Medical History: Denies: Hx End Stage Renal Disease, Hx Kidney Stones, Hx Peritoneal Dialysis GI Medical History: Reports: Hx Gastroesophageal Reflux Disease. Denies: Hx Cirrhosis, Hx Gastritis, Hx Hepatitis, Hx Irritable Bowel, Hx Ulcer Musculoskeltal Medical History: Denies Hx Arthritis, Denies Hx Fibromyalgia, Denies Hx Gout, Denies Hx Multiple Sclerosis, Reports Hx Muscle Spasm - lower back, Denies Hx Musculoskeletal Deformity Psychiatric Medical History: Reports: Hx Anxiety, Hx Bipolar Disorder, Hx Depression Denies: Hx Schizophrenia Infectious Medical History: Denies: Hx Hepatitis Past Surgical History: Reports: Hx Appendectomy, Hx Cardiac Catheterization - x3 , Hx Cardiac Surgery - stent x 2, Hx Coronary Stent - x2 2008 at [facility] in [place], Hx Hysterectomy, Hx Kidney (Renal Surgery), Hx Orthopedic Surgery - nose. Denies: Hx Pacemaker - Immunizations Immunizations up to date: Yes Hx Diphtheria, Pertussis, Tetanus Vaccination: Yes Physical Exam - Vital signs Vitals: Temp Pulse Resp BP Pulse Ox 97.7 F 73 20 95/58 L 97 09/30/17 20:17 09/30/17 20:17 09/30/17 20:17 09/30/17 20:17 09/30/17 20:17 Course - Vital Signs Vital signs: Temp Pulse Resp BP Pulse Ox 97.7 F 73 20 95/58 L 97 09/30/17 20:17 09/30/17 20:17 09/30/17 20:17 09/30/17 20:17 09/30/17 20:17 Doctor's Discharge - Discharge Referrals: MIREYA BRUMFIELD PA-C [Primary Care Provider] - Follow up as needed
--- NOTE | 2017-09-30 21:16 | RADIOLOGY REPORT (SQ) ---
EXAM DESCRIPTION: CHEST SINGLE VIEW COMPLETED DATE/TIME: 09/30/2017 9:07 pm REASON FOR STUDY: cp COMPARISON: 01/06/2016 EXAM PARAMETERS: NUMBER OF VIEWS: One view. TECHNIQUE: Single frontal radiographic view of the chest acquired. RADIATION DOSE: NA LIMITATIONS: None. FINDINGS: LUNGS AND PLEURA: No opacities, masses or pneumothorax. No pleural effusion. MEDIASTINUM AND HILAR STRUCTURES: No masses. Contour normal. HEART AND VASCULAR STRUCTURES: Heart normal in size. Normal vasculature. BONES: No acute findings. HARDWARE: None in the chest. OTHER: No other significant finding. IMPRESSION: NO ACUTE RADIOGRAPHIC FINDING IN THE CHEST. TECHNICAL DOCUMENTATION: JOB ID: [id number] [employer]- All Rights Reserved Reading location - IP/workstation name: [email or web address]
[2017-09-30 21:50] LABS: ABSOLUTE BASOPHILS # (AUTO) 0.1 10^3/uL (0.0-0.2); ABSOLUTE EOSINOPHILS # (AUTO) 0.7 10^3/uL (0.0-0.6); ABSOLUTE LYMPHOCYTES (AUTO) 2.8 10^3/uL (0.5-4.7); ABSOLUTE MONOCYTES (AUTO) 0.5 10^3/uL (0.1-1.4); ABSOLUTE NEUT (AUTO) 3.2 10^3/uL (1.7-8.2); BASOPHILS % (AUTO) 0.8 % (0-2); EOSINOPHILS % (AUTO) 9.9 % (0-6); HEMATOCRIT 39.5 % (36.0-47.0); HEMOGLOBIN 13.7 g/dL (12.0-15.5); LYMPHOCYTES % (AUTO) 38.3 % (13-45); MEAN CORPUSCULAR HEMOGLOBIN 31.8 pg (27.0-33.4); MEAN CORPUSCULAR HGB CONC 34.7 g/dL (32.0-36.0); MEAN CORPUSCULAR VOLUME 92 fl (80-97); MONOCYTES % (AUTO) 6.9 % (3-13); PLATELET COUNT 245 10^3/uL (150-450); RED BLOOD COUNT 4.31 10^6/uL (3.72-5.28); RED CELL DISTRIBUTION WIDTH 12.8 % (11.5-14.0); SEGMENTED NEUTROPHILS % (AUTO) 44.1 % (42-78); TOTAL CELLS COUNTED % (AUTO) 100 %; WHITE BLOOD COUNT 7.3 10^3/uL (4.0-10.5)
[2017-09-30 21:54] LABS: ALANINE AMINOTRANSFERASE 24 U/L (9-52); ALBUMIN 4.3 g/dL (3.5-5.0); ALKALINE PHOSPHATASE 67 U/L (38-126); ANION GAP 11 (5-19); ASPARTATE AMINO TRANSFERASE 21 U/L (14-36); BILIRUBIN,DIRECT 0.3 mg/dL (0.0-0.4); BILIRUBIN,TOTAL 0.4 mg/dL (0.2-1.3); BLOOD UREA NITROGEN 20 mg/dL (7-20); CALCIUM 9.3 mg/dL (8.4-10.2); CARBON DIOXIDE 28 mmol/L (22-30); CHLORIDE 103 mmol/L (98-107); GLUCOSE 105 mg/dL (75-110); POTASSIUM 4.2 mmol/L (3.6-5.0); SODIUM 142.1 mmol/L (137-145); TOTAL PROTEIN 7.3 g/dL (6.3-8.2)
[2017-09-30 22:06] LABS: NT PRO BNP 86 pg/mL (<125)
[2017-09-30 22:07] LABS: TROPONIN I < 0.012 ng/mL
[2017-09-30] MEDS ORDERED: KETOROLAC TROMETHAMINE 60 MG/2 ML SDV IM ONE (22:14)
[2017-09-30] MEDS ORDERED: LIDOCAINE 5% (700 MG) TRANSDERMAL ADH..PATCH TP ONE (22:14)
--- NOTE | 2017-09-30 23:08 | ER Document Report ---
ED General - General Chief Complaint: Chest Wall Pain Stated Complaint: CHEST BONE PAIN Time Seen by Provider: 09/30/17 20:32 Mode of Arrival: Ambulatory Notes: Patient is a 51 year old female who presents with 24 hours of mid sternal pain. She describes this as an aching, throbbing, constant pain worsened when she coughs, takes a deep breath or pushes on the area. She states that the symptoms were present when she woke up today and had been ongoing since that time. She denies a history of similar symptoms in the past. She has not tried anything to improve her symptoms. She denies any known trauma to the area. She has not seen her general doctor regarding today's concerns. She denies any pain rating into her arms, jaw or back. She denies associated nausea, vomiting or shortness of breath. Patient states "I have had a heart attack before and this does not feel like that at all". TRAVEL OUTSIDE OF THE [place] IN LAST 30 DAYS: No - Related Data Allergies/Adverse Reactions: No Known Allergies Allergy (Verified 09/02/17 20:21) Past Medical History - General Information source: Patient - Social History Smoking Status: Current Every Day Smoker Frequency of alcohol use: None Drug Abuse: None Lives with: Spouse/Significant other Family History: Reviewed & Not Pertinent Patient has suicidal ideation: No Patient has homicidal ideation: No - Past Medical History Cardiac Medical History: Reports: Hx Congestive Heart Failure, Hx Coronary Artery Disease, Hx Heart Attack - 2007 with stent, Hx Hypercholesterolemia Denies: Hx Hypertension Pulmonary Medical History: Reports: Hx Asthma, Hx Bronchitis, Hx COPD, Hx Pneumonia Denies: Hx Tuberculosis Neurological Medical History: Denies: Hx Cerebrovascular Accident, Hx Seizures Renal/ Medical History: Denies: Hx End Stage Renal Disease, Hx Kidney Stones, Hx Peritoneal Dialysis GI Medical History: Reports: Hx Gastroesophageal Reflux Disease. Denies: Hx Cirrhosis, Hx Gastritis, Hx Hepatitis, Hx Irritable Bowel, Hx Ulcer Musculoskeltal Medical History: Denies Hx Arthritis, Denies Hx Fibromyalgia, Denies Hx Gout, Denies Hx Multiple Sclerosis, Reports Hx Muscle Spasm - lower back, Denies Hx Musculoskeletal Deformity Psychiatric Medical History: Reports: Hx Anxiety, Hx Bipolar Disorder, Hx Depression Denies: Hx Schizophrenia Infectious Medical History: Denies: Hx Hepatitis Past Surgical History: Reports: Hx Appendectomy, Hx Cardiac Catheterization - x3 , Hx Cardiac Surgery - stent x 2, Hx Coronary Stent - x2 2008 at [facility] in [place], Hx Hysterectomy, Hx Kidney (Renal Surgery), Hx Orthopedic Surgery - nose. Denies: Hx Pacemaker - Immunizations Immunizations up to date: Yes Hx Diphtheria, Pertussis, Tetanus Vaccination: Yes Hx Pneumococcal Vaccination: 05/10/12 Review of Systems - Review of Systems Notes: Constitutional: Negative for fever. HENT: Negative for sore throat. Eyes: Negative for visual changes. Cardiovascular: Negative for chest pain. Respiratory: Negative for shortness of breath. Gastrointestinal: Negative for abdominal pain, vomiting or diarrhea. Genitourinary: Negative for dysuria. Musculoskeletal: Positive for sternal pain Skin: Negative for rash. Neurological: Negative for headaches, weakness or numbness. 10 point ROS negative except as marked above and in HPI. Physical Exam - Vital signs Vitals: Temp Pulse Resp BP Pulse Ox 97.7 F 73 20 95/58 L 97 09/30/17 20:17 09/30/17 20:17 09/30/17 20:17 09/30/17 20:17 09/30/17 20:17 Interpretation: Hypotensive - Patient states this is baseline Notes: PHYSICAL EXAMINATION: GENERAL: Well-appearing, well-nourished and in no acute distress. HEAD: Atraumatic, normocephalic. EYES: Pupils equal round and reactive to light, extraocular movements intact, sclera anicteric, conjunctiva are normal. ENT: nares patent, oropharynx clear without exudates. Moist mucous membranes. NECK: Normal range of motion, supple without lymphadenopathy LUNGS: Breath sounds clear to auscultation bilaterally and equal. No wheezes rales or rhonchi. HEART: Regular rate and rhythm without murmurs Chest wall: Pain on palpation of the mid central sternum ABDOMEN: Soft, nontender, normoactive bowel sounds. No guarding, no rebound. No masses appreciated. EXTREMITIES: Normal range of motion, no pitting or edema. No cyanosis. NEUROLOGICAL: No focal neurological deficits. Moves all extremities spontaneously and on command. PSYCH: Normal mood, normal affect. SKIN: Warm, Dry, normal turgor, no rashes or lesions noted. Course - Re-evaluation Re-evalutation: 09/30/17 23:03 Patient presents complaining of central sternal pain the past 24 hours. No tachypnea or hypoxemia at time of arrival. Pain controlled here in the emergency department with anti-inflammatory analgesics. Chest x-ray without evidence of acute fracture, pneumothorax or pulmonary contusion. Patient is PERC criteria negative and clinical history does not sound consistent with this. EKG is normal, troponin negative and again her clinical history is not consistent with ACS. At this time will discharge with return precautions and follow-up recommendations. Verbal discharge instructions given at the bedside and opportunity for questions given. Medication warnings reviewed. Patient is in agreement with this plan and has verbalized understanding of return precautions and the need for primary care follow-up in the next 24-72 hours. - Vital Signs Vital signs: Temp Pulse Resp BP Pulse Ox 97.7 F 58 L 20 92/64 L 97 09/30/17 20:17 09/30/17 23:24 09/30/17 20:17 09/30/17 23:24 09/30/17 23:24 - Laboratory Result Diagrams: 09/30/17 20:57 09/30/17 20:57 Laboratory results interpreted by me: 09/30/17 20:57 Eosinophils % 9.9 H Absolute Eosinophils 0.7 H - Diagnostic Test Radiology reviewed: Image reviewed, Reports reviewed Radiology results interpreted by me: 09/30/17 23:07 Chest x-ray: No acute infiltrate, rib fractures or pneumothoraces. Discharge - Discharge Clinical Impression: Sternal pain, Rib pain Condition: Good Disposition: HOME, SELF-CARE Additional Instructions: Your chest wall pain is due to inflammation of your chest wall. This pain can last for up to 6 weeks. It is very important that you continue to take purposeful deep breaths. For your pain: Continue to take ibuprofen 600 mg every 6 hours or Tylenol 1000 mg every 6 hours. Apply local lidocaine to the area per bottle instructions. There is a product sold [id number] called "Aspercreme with lidocaine" that you can use for this purpose. Please follow- up with her primary care doctor in the next 2-3 days. Return to the emergency department immediately if you develop worsening shortness of breath, increased pain, begin coughing blood, pass out, or have any other symptoms that are worrisome to you. Referrals: MIREYA BRUMFIELD PA-C [Primary Care Provider] - Follow up as needed
[2017-09-30 23:30] VITALS: BP 92/64
--- NOTE | 2017-10-01 19:09 | EKG REPORT ---
SEVERITY:- ABNORMAL ECG - SINUS RHYTHM LEFT ANTERIOR FASCICULAR BLOCK LOW VOLTAGE IN FRONTAL LEADS NONSPECIFIC T ABNORMALITIES, DIFFUSE LEADS : Confirmed by: Kristine Colindres MD 01-Oct-2017 19:08:38
== END 2017-09-30 23:30 | disposition home or self-care (01) ==
LOC: ER 20:03
DX: M89.8X8 Other specified disorders of bone, other site (principal); R07.81 Pleurodynia; I25.2 Old myocardial infarction; F17.200 Nicotine dependence, unspecified, uncomplicated; I25.10 Atherosclerotic heart disease of native coronary artery without angina pectoris; J44.9 Chronic obstructive pulmonary disease, unspecified
CPT/HCPCS: 93005; 99284; 96372; 36415; 85025; 80053; 84484; 83880; 71045; 93010; J1885; J3490

== ENCOUNTER 2018-01-03 18:01 | Emergency (ER) | payer MEDICAID ==
[2018-01-03] MEDS ORDERED: IPRATROPIUM/ALBUTEROL 0.5-2.5 MG/3 ML AMPUL NEB ONE (18:17)
[2018-01-03] MEDS ORDERED: HYDROCODONE/ACETAMINOPHEN 5-325 MG TABLET PO ONE (18:18)
--- NOTE | 2018-01-03 18:19 | ER Document Report ---
ED Medical Screen (RME) - General Chief Complaint: Shortness Of Breath Stated Complaint: DIFFICULTY BREATHING Time Seen by Provider: 01/03/18 18:16 Notes: 52 years old female with a history of smoking, COPD, presents today with persistent cough and wheezing in spite of taking prednisolone tapering dose for the last few days. Coughing leading to diffuse abdominal pain. No nausea vomiting diarrhea. On examination-diffusely decreased breath sounds, with wheezing. Abdominal wall tenderness TRAVEL OUTSIDE OF THE [place] IN LAST 30 DAYS: No - Related Data Allergies/Adverse Reactions: No Known Allergies Allergy (Verified 01/03/18 18:03) Past Medical History - Social History Chew tobacco use (# tins/day): No Frequency of alcohol use: None Drug Abuse: None - Past Medical History Cardiac Medical History: Reports: Hx Congestive Heart Failure, Hx Coronary Artery Disease, Hx Heart Attack - 2008 with stent, Hx Hypercholesterolemia Denies: Hx Hypertension Pulmonary Medical History: Reports: Hx Asthma, Hx Bronchitis, Hx COPD, Hx Pneumonia Denies: Hx Tuberculosis Neurological Medical History: Denies: Hx Cerebrovascular Accident, Hx Seizures Renal/ Medical History: Denies: Hx End Stage Renal Disease, Hx Kidney Stones, Hx Peritoneal Dialysis GI Medical History: Reports: Hx Gastroesophageal Reflux Disease. Denies: Hx Cirrhosis, Hx Gastritis, Hx Hepatitis, Hx Irritable Bowel, Hx Ulcer Musculoskeltal Medical History: Denies Hx Arthritis, Denies Hx Fibromyalgia, Denies Hx Gout, Denies Hx Multiple Sclerosis, Reports Hx Muscle Spasm - lower back, Denies Hx Musculoskeletal Deformity Psychiatric Medical History: Reports: Hx Anxiety, Hx Bipolar Disorder, Hx Depression Denies: Hx Schizophrenia Infectious Medical History: Denies: Hx Hepatitis Past Surgical History: Reports: Hx Appendectomy, Hx Cardiac Catheterization - x3 , Hx Cardiac Surgery - stent x 2, Hx Coronary Stent - x2 2008 at [facility] in [place], Hx Hysterectomy, Hx Kidney (Renal Surgery), Hx Orthopedic Surgery - nose. Denies: Hx Pacemaker - Immunizations Immunizations up to date: Yes Hx Diphtheria, Pertussis, Tetanus Vaccination: Yes Physical Exam - Vital signs Vitals: Temp Pulse Resp BP Pulse Ox 98.1 F 82 20 129/60 H 97 01/03/18 18:08 01/03/18 18:08 01/03/18 18:08 01/03/18 18:08 01/03/18 18:08 Course - Vital Signs Vital signs: Temp Pulse Resp BP Pulse Ox 98.1 F 82 20 129/60 H 97 01/03/18 18:08 01/03/18 18:08 01/03/18 18:08 01/03/18 18:08 01/03/18 18:08 Doctor's Discharge - Discharge Referrals: MIREYA BRUMFIELD PA-C [Primary Care Provider] - Follow up as needed
[2018-01-03 18:51] LABS: APPEARANCE,URINE CLEAR; BILIRUBIN,URINE NEGATIVE (NEGATIVE); COLOR,URINE YELLOW; GLUCOSE, URINE NEGATIVE (NEGATIVE); KETONES,URINE NEGATIVE (NEGATIVE); LEUKOCYTE ESTERASE,URINE NEGATIVE (NEGATIVE); NITRITE,URINE NEGATIVE (NEGATIVE); PROTEIN,URINE NEGATIVE (NEGATIVE); UROBILINOGEN,URINE NEGATIVE mg/dL (<2.0)
--- NOTE | 2018-01-03 18:54 | RADIOLOGY REPORT (SQ) ---
EXAM DESCRIPTION: ACUTE ABDOMEN SERIES COMPLETED DATE/TIME: 01/03/2018 6:42 pm REASON FOR STUDY: Abdominal pain COMPARISON: None. NUMBER OF VIEWS: 01/08/2016 TECHNIQUE: Frontal chest, supine abdomen and upright/decubitus abdomen radiographic images acquired. LIMITATIONS: None. FINDINGS: CHEST: Hyperexpansion of the lungs. No infiltrate or effusion. FREE AIR: None. No abnormal gas collections. BOWEL GAS PATTERN: Nonobstructive pattern. No dilated loops or air fluid levels. CALCIFICATIONS: No suspicious calcifications. HARDWARE: None in the abdomen. SOFT TISSUES: No gross mass or suggestion of organomegaly. BONES: No acute fracture. No worrisome bone lesions. OTHER: No other significant finding. IMPRESSION: Chronic lung changes. Nonspecific abdomen. TECHNICAL DOCUMENTATION: JOB ID: [id number] [employer]- All Rights Reserved Reading location - IP/workstation name: [email or web address]
[2018-01-03] MEDS ORDERED: MAGNESIUM SULFATE/D5W 1 GM/100 ML RTUPB IV ONE (19:40)
[2018-01-03] MEDS ORDERED: LIDOCAINE 1% INJ-PF (10 MG/ML) 30 ML SDV NEB ONE (19:40)
[2018-01-03] MEDS ORDERED: KETOROLAC TROMETHAMINE INJ/PF 30 MG/1 ML SDV IV ONE (19:40)
[2018-01-03 19:49] LABS: ABSOLUTE LYMPHOCYTES (AUTO) 1.7 10^3/uL (0.5-4.7); ABSOLUTE MONOCYTES (AUTO) 0.4 10^3/uL (0.1-1.4); BASOPHILS % (AUTO) 0.2 % (0-2); EOSINOPHILS % (AUTO) 0.1 % (0-6); HEMATOCRIT 39.1 % (36.0-47.0); HEMOGLOBIN 13.2 g/dL (12.0-15.5); LYMPHOCYTES % (AUTO) 18.3 % (13-45); MEAN CORPUSCULAR HGB CONC 33.6 g/dL (32.0-36.0); MEAN CORPUSCULAR VOLUME 92 fl (80-97); MONOCYTES % (AUTO) 4.2 % (3-13); PLATELET COUNT 310 10^3/uL (150-450); RED BLOOD COUNT 4.25 10^6/uL (3.72-5.28); RED CELL DISTRIBUTION WIDTH 13.4 % (11.5-14.0); SEGMENTED NEUTROPHILS % (AUTO) 77.2 % (42-78); TOTAL CELLS COUNTED % (AUTO) 100 %; WHITE BLOOD COUNT 9.1 10^3/uL (4.0-10.5)
[2018-01-03 20:07] LABS: ALANINE AMINOTRANSFERASE 26 U/L (9-52); ALBUMIN 4.2 g/dL (3.5-5.0); ALKALINE PHOSPHATASE 89 U/L (38-126); ANION GAP 12 (5-19); ASPARTATE AMINO TRANSFERASE 21 U/L (14-36); BILIRUBIN,DIRECT 0.3 mg/dL (0.0-0.4); BILIRUBIN,TOTAL 0.3 mg/dL (0.2-1.3); BLOOD UREA NITROGEN 19 mg/dL (7-20); CARBON DIOXIDE 22 mmol/L (22-30); CHLORIDE 105 mmol/L (98-107); CREATINE KINASE 97 U/L (30-135); GLUCOSE 120 mg/dL (75-110); POTASSIUM 4.2 mmol/L (3.6-5.0); SODIUM 139.3 mmol/L (137-145); TOTAL PROTEIN 7.1 g/dL (6.3-8.2)
[2018-01-03 20:16] LABS: CREATINE KINASE MB 1.26 ng/mL (<4.55)
[2018-01-03] MEDS ORDERED: ALBUTEROL SULFATE HFA (90 MCG/PUFF) 8 GM MDI (1 MDI/ER DISP) IH ONE (21:10)
[2018-01-03] MEDS ORDERED: BENZONATATE 100 MG CAPSULE PO ONE (21:14)
--- NOTE | 2018-01-03 21:15 | ER Document Report ---
ED General - General Chief Complaint: Shortness Of Breath Stated Complaint: DIFFICULTY BREATHING Time Seen by Provider: 01/03/18 18:16 TRAVEL OUTSIDE OF THE [place] IN LAST 30 DAYS: No - HPI Patient complains to provider of: Shortness of breath Notes: Patient coming in with continued shortness of breath and treatment for bronchitis with doxycycline and prednisone. Patient states she no longer smokes however her still smokes around her. Patient patient states white sputum at this time. Patient also states diffuse myalgias. Patient denies any fevers or chills patient resting healthy upon my evaluation. - Related Data Allergies/Adverse Reactions: No Known Allergies Allergy (Verified 01/03/18 18:03) Past Medical History - Social History Smoking Status: Former Smoker Chew tobacco use (# tins/day): No Frequency of alcohol use: None Drug Abuse: None Family History: Reviewed & Not Pertinent Patient has suicidal ideation: No Patient has homicidal ideation: No - Past Medical History Cardiac Medical History: Reports: Hx Congestive Heart Failure, Hx Coronary Artery Disease, Hx Heart Attack - 2008 with stent, Hx Hypercholesterolemia Denies: Hx Hypertension Pulmonary Medical History: Reports: Hx Asthma, Hx Bronchitis, Hx COPD, Hx Pneumonia Denies: Hx Tuberculosis Neurological Medical History: Denies: Hx Cerebrovascular Accident, Hx Seizures Renal/ Medical History: Reports: Hx Kidney Stones. Denies: Hx End Stage Renal Disease, Hx Peritoneal Dialysis GI Medical History: Reports: Hx Gastroesophageal Reflux Disease. Denies: Hx Cirrhosis, Hx Gastritis, Hx Hepatitis, Hx Irritable Bowel, Hx Ulcer Musculoskeletal Medical History: Denies Hx Arthritis, Denies Hx Fibromyalgia, Denies Hx Gout, Denies Hx Multiple Sclerosis, Reports Hx Muscle Spasm - lower back, Denies Hx Musculoskeletal Deformity Psychiatric Medical History: Reports: Hx Anxiety, Hx Bipolar Disorder, Hx Depression Denies: Hx Schizophrenia Infectious Medical History: Denies: Hx Hepatitis Past Surgical History: Reports: Hx Appendectomy, Hx Cardiac Catheterization - x3 , Hx Cardiac Surgery - stent x 2, Hx Coronary Stent - x2 2008 at [facility] in [place], Hx Hysterectomy, Hx Kidney (Renal Surgery), Hx Orthopedic Surgery - nose. Denies: Hx Pacemaker - Immunizations Immunizations up to date: Yes Hx Diphtheria, Pertussis, Tetanus Vaccination: Yes Hx Pneumococcal Vaccination: 05/10/12 Review of Systems - Review of Systems Constitutional: No symptoms reported EENT: No symptoms reported Cardiovascular: No symptoms reported Respiratory: Cough, Short of breath, Wheezing Gastrointestinal: No symptoms reported Genitourinary: No symptoms reported Female Genitourinary: No symptoms reported Musculoskeletal: No symptoms reported Skin: No symptoms reported Hematologic/Lymphatic: No symptoms reported Neurological/Psychological: No symptoms reported -: Yes All other systems reviewed and negative Physical Exam - Vital signs Vitals: Temp Pulse Resp BP Pulse Ox 98.1 F 82 20 129/60 H 97 01/03/18 18:08 01/03/18 18:08 01/03/18 18:08 01/03/18 18:08 01/03/18 18:08 Interpretation: Normal - General General appearance: Appears well, Alert - HEENT Head: Normocephalic, Atraumatic Eyes: Normal Pupils: PERRL - Respiratory Respiratory status: No respiratory distress Chest status: Nontender Breath sounds: Wheezing Chest palpation: Normal - Cardiovascular Rhythm: Regular Heart sounds: Normal auscultation Murmur: No - Abdominal Inspection: Normal Distension: No distension Bowel sounds: Normal Tenderness: Nontender Organomegaly: No organomegaly - Back Back: Normal, Nontender - Extremities General upper extremity: Normal inspection, Nontender, Normal color, Normal ROM , Normal temperature General lower extremity: Normal inspection, Nontender, Normal color, Normal ROM , Normal temperature, Normal weight bearing. No: Amanda's sign - Neurological Neuro grossly intact: Yes Cognition: Normal Orientation: AAOx4 Mikaela Coma Scale Eye Opening: Spontaneous [place] Coma Scale Verbal: Oriented Mikaela Coma Scale Motor: Obeys Commands [place] Coma Scale Total: 15 Speech: Normal Motor strength normal: LUE, RUE, LLE, RLE Sensory: Normal - Psychological Associated symptoms: Normal affect, Normal mood - Skin Skin Temperature: Warm Skin Moisture: Dry Skin Color: Normal Course - Re-evaluation Re-evalutation: 01/03/18 23:09 No signs of any new infection did not feel the patient will require any further antibiotics or recommended honey and Tessalon Perles for cough suppression continue your albuterol inhaler 2 puffs every 4 hours for next few days recommend the patient stop pain around her hospital he was smoking explained the adverse effects of the hand smoke to the patient. States understanding patient was discharged home - Vital Signs Vital signs: Temp Pulse Resp BP Pulse Ox 97.9 F 89 18 118/49 L 97 01/03/18 21:23 01/03/18 21:23 10/03/18 21:33 01/03/18 21:23 01/03/18 21:33 - Laboratory Result Diagrams: 01/03/18 19:33 01/03/18 19:33 Laboratory results interpreted by me: 01/03/18 19:33 Glucose 120 H Discharge - Discharge Clinical Impression: Bronchitis Condition: Good Disposition: HOME, SELF-CARE Instructions: Bronchitis With Bronchospasm (Wheezing) (OM) Additional Instructions: Chest x-ray that does not show any signs of pneumonia. The nebulizer treatments. I would highly recommend that you continue using your inhalers at home 2 puffs every 2-4 hours as needed for shortness of breath he will need to avoid any dust or smoke inhalation to aid in your symptoms. Fortunately with bronchitis cough can last for 2-3 weeks after symptoms have been treated with steroids and antibiotics. Would also recommend taking Tylenol Motrin for pain control. Follow-up with your primary care physician return to ER symptoms worsen. Prescriptions: Benzonatate [Tessalon Perle 100 mg Capsule] 100 mg PO Q8HP PRN #40 cap PRN Reason: Ibuprofen [Motrin 600 mg Tablet] 600 mg PO Q8HP PRN #21 tablet PRN Reason: Forms: Return to Work Referrals: MIREYA BRUMFIELD PA-C [Primary Care Provider] - Follow up as needed
[2018-01-03 21:25] VITALS: BP 118/49
--- NOTE | 2018-01-04 08:57 | EKG REPORT ---
SEVERITY:- ABNORMAL ECG - SINUS RHYTHM LEFT ANTERIOR FASCICULAR BLOCK LOW VOLTAGE IN FRONTAL LEADS BORDERLINE T WAVE ABNORMALITIES : Confirmed by: Leonardo Seymour 04-Jan-2018 08:56:27
== END 2018-01-03 21:33 | disposition home or self-care (01) ==
LOC: ER 18:01
DX: J44.9 Chronic obstructive pulmonary disease, unspecified (principal); R06.02 Shortness of breath; M79.10 Myalgia, unspecified site; R05 Cough; I25.10 Atherosclerotic heart disease of native coronary artery without angina pectoris; I25.2 Old myocardial infarction; Z87.891 Personal history of nicotine dependence
CPT/HCPCS: 93005; 36415; 82553; 82550; 83735; 85025; 80053; 81001; 83880; 74022; 93010; J3490 ×3; J1885; J3475; J7620

== ENCOUNTER 2018-03-24 09:42 | Inpatient (IN) | payer MEDICAID ==
--- NOTE | 2018-03-24 10:03 | ER Document Report ---
ED Medical Screen (RME) - General Chief Complaint: Chest Pain Stated Complaint: CHEST PAIN Time Seen by Provider: 03/24/18 10:01 Mode of Arrival: Ambulatory Information source: Patient, Relative TRAVEL OUTSIDE OF THE [place] 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 Worse today. Took ASA this am - Related Data Allergies/Adverse Reactions: No Known Allergies Allergy (Verified 03/24/18 09:43) Past Medical History - Past Medical History Cardiac Medical History: Reports: Hx Congestive Heart Failure, Hx Coronary Artery Disease, Hx Heart Attack - 2008 with stent, Hx Hypercholesterolemia Denies: Hx Hypertension Pulmonary Medical History: Reports: Hx Asthma, Hx Bronchitis, Hx COPD, Hx Pneumonia Denies: Hx Tuberculosis Neurological Medical History: Denies: Hx Cerebrovascular Accident, Hx Seizures Renal/ Medical History: Reports: Hx Kidney Stones. Denies: Hx End Stage Renal Disease, Hx Peritoneal Dialysis GI Medical History: Reports: Hx Gastroesophageal Reflux Disease. Denies: Hx Cirrhosis, Hx Gastritis, Hx Hepatitis, Hx Irritable Bowel, Hx Ulcer Musculoskeltal Medical History: Denies Hx Arthritis, Denies Hx Fibromyalgia, Denies Hx Gout, Denies Hx Multiple Sclerosis, Reports Hx Muscle Spasm - lower back, Denies Hx Musculoskeletal Deformity Psychiatric Medical History: Reports: Hx Anxiety, Hx Bipolar Disorder, Hx Depression Denies: Hx Schizophrenia Infectious Medical History: Denies: Hx Hepatitis Past Surgical History: Reports: Hx Appendectomy, Hx Cardiac Catheterization - x3, Hx Cardiac Surgery - stent x 2, Hx Coronary Stent - x2 2008 at [facility] in [place], Hx Hysterectomy, Hx Kidney (Renal Surgery), Hx Orthopedic Surgery - nose. Denies: Hx Pacemaker - Immunizations Immunizations up to date: Yes Hx Diphtheria, Pertussis, Tetanus Vaccination: Yes Physical Exam - Vital signs Vitals: Temp Pulse Resp BP Pulse Ox 97.9 F 79 16 102/70 96 03/24/18 09:54 03/24/18 09:54 03/24/18 09:54 03/24/18 09:54 03/24/18 09:54 Course - Vital Signs Vital signs: Temp Pulse Resp BP Pulse Ox 97.9 F 79 16 102/70 96 03/24/18 09:54 03/24/18 09:54 03/24/18 09:54 03/24/18 09:54 03/24/18 09:54 Doctor's Discharge - Discharge Referrals: MIREYA BRUMFIELD PA-C [Primary Care Provider] - Follow up as needed
--- NOTE | 2018-03-24 10:41 | RADIOLOGY REPORT (SQ) ---
EXAM DESCRIPTION: CHEST 2 VIEWS COMPLETED DATE/TIME: 03/24/2018 10:27 am REASON FOR STUDY: cp COMPARISON: 09/30/2017. EXAM PARAMETERS: NUMBER OF VIEWS: two views TECHNIQUE: Digital Frontal and Lateral radiographic views of the chest acquired. RADIATION DOSE: NA LIMITATIONS: none FINDINGS: LUNGS AND PLEURA: No acute infiltrates or effusions. MEDIASTINUM AND HILAR STRUCTURES: No masses or contour abnormalities. HEART AND VASCULAR STRUCTURES: The heart is normal. The pulmonary vasculature is normal. BONES: No acute findings. HARDWARE: None in the chest. OTHER: No other significant finding. IMPRESSION: No acute disease. TECHNICAL DOCUMENTATION: JOB ID: [id number] [employer]- All Rights Reserved Reading location - IP/workstation name: [email or web address]
[2018-03-24 10:42] LABS: ABSOLUTE EOSINOPHILS # (AUTO) 0.3 10^3/uL (0.0-0.6); ABSOLUTE LYMPHOCYTES (AUTO) 1.5 10^3/uL (0.5-4.7); ABSOLUTE MONOCYTES (AUTO) 0.3 10^3/uL (0.1-1.4); ABSOLUTE NEUT (AUTO) 2.9 10^3/uL (1.7-8.2); BASOPHILS % (AUTO) 0.8 % (0-2); EOSINOPHILS % (AUTO) 5.7 % (0-6); HEMATOCRIT 42.4 % (36.0-47.0); HEMOGLOBIN 14.9 g/dL (12.0-15.5); LYMPHOCYTES % (AUTO) 30.2 % (13-45); MEAN CORPUSCULAR HEMOGLOBIN 31.6 pg (27.0-33.4); MEAN CORPUSCULAR HGB CONC 35.2 g/dL (32.0-36.0); MEAN CORPUSCULAR VOLUME 90 fl (80-97); PLATELET COUNT 263 10^3/uL (150-450); RED BLOOD COUNT 4.72 10^6/uL (3.72-5.28); SEGMENTED NEUTROPHILS % (AUTO) 57.3 % (42-78); TOTAL CELLS COUNTED % (AUTO) 100 %; WHITE BLOOD COUNT 5.1 10^3/uL (4.0-10.5)
[2018-03-24] MEDS ORDERED: ASPIRIN 81 MG TABLET, CHEWABLE PO ONE (10:45)
[2018-03-24] MEDS ORDERED: NITROGLYCERIN 0.4 MG/TAB 25 TAB/BOTTLE SL PRN ×2 (10:47→16:13)
[2018-03-24 10:59] LABS: ALANINE AMINOTRANSFERASE 13 U/L (9-52); ALBUMIN 4.8 g/dL (3.5-5.0); ALKALINE PHOSPHATASE 56 U/L (38-126); ANION GAP 12 (5-19); ASPARTATE AMINO TRANSFERASE 22 U/L (14-36); BILIRUBIN,DIRECT 0.2 mg/dL (0.0-0.4); BILIRUBIN,TOTAL 1.1 mg/dL (0.2-1.3); BLOOD UREA NITROGEN 17 mg/dL (7-20); CALCIUM 10.3 mg/dL (8.4-10.2); CARBON DIOXIDE 28 mmol/L (22-30); CHLORIDE 99 mmol/L (98-107); CREATINE KINASE 56 U/L (30-135); GLUCOSE 187 mg/dL (75-110); POTASSIUM 3.4 mmol/L (3.6-5.0); SODIUM 138.5 mmol/L (137-145); TOTAL PROTEIN 7.9 g/dL (6.3-8.2)
[2018-03-24 11:11] LABS: CREATINE KINASE MB 1.67 ng/mL (<4.55)
[2018-03-24 11:13] LABS: TROPONIN I < 0.012 ng/mL
[2018-03-24] MEDS ORDERED: FENTANYL CITRATE INJ/PF 100 MCG/2 ML AMPUL IV ONE (11:33)
--- NOTE | 2018-03-24 11:35 | EKG REPORT ---
SEVERITY:- ABNORMAL ECG - SINUS RHYTHM LEFT ANTERIOR FASCICULAR BLOCK LOW VOLTAGE IN FRONTAL LEADS NONSPECIFIC T ABNORMALITIES, DIFFUSE LEADS : Confirmed by: Christiano Day MD 24-Mar-2018 11:35:17
--- NOTE | 2018-03-24 15:27 | ER Document Report ---
ED Cardiac - General Chief Complaint: Chest Pain Stated Complaint: CHEST PAIN Time Seen by Provider: 03/24/18 10:01 Mode of Arrival: Ambulatory TRAVEL OUTSIDE OF THE [place] IN LAST 30 DAYS: No - HPI Patient complains to provider of: Chest pain - 52-year-old female presents for evaluation of pain in the left side of her chest which she says is similar to a previous heart attack she suffered 8 years prior. She is followed by Dr. Connor for her chest pain. Nothing is made her pain better and nothing is made it worse, they did try to give her nitroglycerin which she says did not help with the chest pain but did give her headache. She is not take anything at home to try and help with this. She is an every day smoker still, she is a COPD and emphysema patient as well. - Related Data Allergies/Adverse Reactions: No Known Allergies Allergy (Verified 03/24/18 09:43) Past Medical History - General Information source: Patient, Relative - Social History Smoking Status: Current Every Day Smoker Chew tobacco use (# tins/day): No Frequency of alcohol use: Occasional Drug Abuse: Cocaine Family History: Reviewed & Not Pertinent Patient has suicidal ideation: No Patient has homicidal ideation: No - Past Medical History Cardiac Medical History: Reports: Hx Congestive Heart Failure, Hx Coronary Artery Disease, Hx Heart Attack - 2008 with stent, Hx Hypercholesterolemia Denies: Hx Hypertension Pulmonary Medical History: Reports: Hx Asthma, Hx Bronchitis, Hx COPD, Hx Pneumonia Denies: Hx Tuberculosis Neurological Medical History: Denies: Hx Cerebrovascular Accident, Hx Seizures Renal/ Medical History: Reports: Hx Kidney Stones. Denies: Hx End Stage Renal Disease, Hx Peritoneal Dialysis GI Medical History: Reports: Hx Gastroesophageal Reflux Disease. Denies: Hx Cirrhosis, Hx Gastritis, Hx Hepatitis, Hx Irritable Bowel, Hx Ulcer Musculoskeletal Medical History: Denies Hx Arthritis, Denies Hx Fibromyalgia, Denies Hx Gout, Denies Hx Multiple Sclerosis, Reports Hx Muscle Spasm - lower back, Denies Hx Musculoskeletal Deformity Psychiatric Medical History: Reports: Hx Anxiety, Hx Bipolar Disorder, Hx Depression Denies: Hx Schizophrenia Infectious Medical History: Denies: Hx Hepatitis Past Surgical History: Reports: Hx Appendectomy, Hx Cardiac Catheterization - x3, Hx Cardiac Surgery - stent x 2, Hx Coronary Stent - x2 2008 at [facility] [place] in [place], Hx Hysterectomy, Hx Kidney (Renal Surgery), Hx Orthopedic Surgery - nose. Denies: Hx Pacemaker - Immunizations Immunizations up to date: Yes Hx Diphtheria, Pertussis, Tetanus Vaccination: Yes Hx Pneumococcal Vaccination: 05/10/12 Review of Systems - Review of Systems -: Yes All other systems reviewed and negative Physical Exam - Vital signs Vitals: Temp Pulse Resp BP Pulse Ox 97.9 F 79 16 102/70 96 03/24/18 09:54 03/24/18 09:54 03/24/18 09:54 03/24/18 09:54 03/24/18 09:54 - General General appearance: Alert In distress: Mild - HEENT Head: Normocephalic, Atraumatic Eyes: Normal Pupils: PERRL - Respiratory Respiratory status: No respiratory distress - Wheezes audible in all lung temple Chest status: Nontender Breath sounds: Normal Chest palpation: Normal - Cardiovascular Rhythm: Regular Heart sounds: Normal auscultation Murmur: No - Abdominal Inspection: Normal Distension: No distension Tenderness: Nontender - Back Back: Normal - Extremities General upper extremity: Normal inspection, Nontender, Normal color, Normal ROM, Normal temperature General lower extremity: Normal inspection, Nontender, Normal color, Normal ROM, Normal temperature, Normal weight bearing. No: Amanda's sign - Neurological Neuro grossly intact: Yes Cognition: Normal Orientation: AAOx4 [place] Coma Scale Eye Opening: Spontaneous [place] Coma Scale Verbal: Oriented [place] Coma Scale Motor: Obeys Commands [place] Coma Scale Total: 15 Speech: Normal Motor strength normal: LUE, RUE, LLE, RLE Sensory: Normal - Psychological Associated symptoms: Normal affect, Normal mood Course - Re-evaluation Re-evalutation: 03/24/18 17:10 52-year-old female who presents for evaluation of pain in left side of her chest. She states that this pain feels just like previous heart attack. We will initiate cardiac workup, will obtain troponin x2, will obtain chest x-ray EKG plan for monitoring. Will administer fentanyl as the nitroglycerin did not improve her symptoms. Heart score for this patient is as follows Age1 History2 EKG2 Risk factors2 Troponin0 Patient's heart score is a 7, she is high risk chest pain, she has had 2 negative troponins in the emergency department has had persistent pain thereafter. Believe that this patient will benefit from further evaluation including cycle enzymes cardiac monitoring and reassessment. Current plan is to contact hospitalist. Spoke to on-call nurse practitioner Quin Davenport who is going to admit this patient to the hospital for further monitoring and evaluation. - Vital Signs Vital signs: Temp Pulse Resp BP Pulse Ox 97.9 F 56 L 32 H 107/68 96 03/24/18 09:54 03/24/18 10:42 03/24/18 16:01 03/24/18 16:00 03/24/18 16:01 - Laboratory Result Diagrams: 03/24/18 10:12 03/24/18 10:12 Laboratory results interpreted by me: 03/24/18 03/24/18 10:12 10:12 Potassium 3.4 L Glucose 187 H Calcium 10.3 H C-Reactive Protein 18.4 H Discharge - Discharge Clinical Impression: Chest pain Qualifiers: Chest pain type: unspecified Qualified Code(s): R07.9 - Chest pain, unspecified Condition: Stable Disposition: ADMITTED OBSERVATION Admitting Provider: Hospitalist Unit Admitted: Telemetry
[2018-03-24] MEDS ORDERED: ONDANSETRON HCL INJ/PF 4 MG/2 ML SDV IV PRN (16:13)
[2018-03-24] MEDS ORDERED: MAG HYDROX/AL HYDROX/SIMETH SUSP 30 ML UDCUP PO PRN (16:13)
[2018-03-24] MEDS ORDERED: ALBUTEROL SULFATE 0.083% NEB 2.5 MG/3 ML AMPUL NEB PRN (16:19)
[2018-03-24] MEDS ORDERED: IPRATROPIUM/ALBUTEROL 0.5-2.5 MG/3 ML AMPUL NEB ONE (16:19)
[2018-03-24] MEDS ORDERED: METHYLPREDNISOLONE INJ 125 MG/2 ML SDV IV ONE (16:19)
[2018-03-24] MEDS ORDERED: NORMAL SALINE 1000 ML 1,000 ML IV ONE (16:20)
[2018-03-24 16:23] LABS: C-REACTIVE PROTEIN 18.4 mg/L (<10.0); URIC ACID 5.3 mg/dL (2.5-7.5)
--- NOTE | 2018-03-24 16:36 | PDOC H&P ---
History of Present Illness Admission Date/PCP: 03/24/18 15:47 MIREYA BRUMFIELD PA-C Patient complains of: atypical chest pain History of Present Illness: SABINE HOUSE is a 52 year old female with a past medical history significant for MA (stent x1), COPD, HTN, HLD, remote substance abuse and tobacco dependence with continuous use who resented to the emergency department today with a complaint of 5 days of progressively worsening bilateral upper back and shoulder pain (L>R) is similar to the pain she had during her non-STEMI 8 years ago. She denies alleviating or aggravating factors. She does endorse dyspnea and a productive cough stating that she has had numerous COPD flareups for the previous 3 months. She denies fever, chills, palpitations, orthopnea, abdominal pain, nausea vomiting and diarrhea. Evaluation in the emergency department revealed an unremarkable laboratory evaluation with negative troponins x2, benign chest x-ray, an EKG with a left anterior fascicular block and inverted T waves to diffuse leads. The patient's discomfort has persisted despite subungual nitroglycerin and IV fentanyl. She is referred to the hospitalist service for admission and chest pain rule out. Past Medical History Cardiac Medical History: Reports: Congestive Heart Failure, Coronary Artery Disease, Myocardial Infarction - 2008 with stent, Hyperlipidema Denies: Hypertension Pulmonary Medical History: Reports: Chronic Obstructive Pulmonary Disease (COPD), Pneumonia Denies: Tuberculosis EENT Medical History: Reports: None Neurological Medical History: Reports: None Endocrine Medical History: Reports: None Renal/ Medical History: Reports: None Malignancy Medical History: Reports: None GI Medical History: Reports: Gastroesophageal Reflux Disease Denies: Cirrhosis, Hepatitis Musculoskeltal Medical History: Denies: Arthritis, Fibromyalgia, Gout Psychiatric Medical History: Reports: None, Bipolar Disorder, Depression, Substance Abuse, Tobacco Dependency Hematology: Denies: Anemia, Bleeding Tendencies Infectious Medical History: Reports: None Past Surgical History Past Surgical History: Reports: Appendectomy, Cardiac Catheterization - x3, Coronary Stent - x1 2008 at [facility] in [place], Hysterectomy, Orthopedic Surgery - nose Denies: Pacemaker Social History Information Source: Patient Smoking Status: Current Every Day Smoker Cigarettes Packs Per Day: 0.5 Number of Years Smokin Frequency of Alcohol Use: Rare Hx Recreational Drug Use: No Drugs: None Hx Prescription Drug Abuse: No - Advance Directive Resuscitation Status: Full Code Surrogate healthcare decision maker:: The patient's , Aldo House Family History Family History: Reviewed & Not Pertinent Parental Family History Reviewed: Yes Children Family History Reviewed: Yes Sibling(s) Family History Reviewed.: Yes Medication/Allergy Home Medications: Aspirin [Aspirin 81 mg Chewable Tablet] 81 mg PO DAILY 12/01/13 Budesonide/Formoterol Fumarate [Symbicort HFA 80-4.5 mcg Inhaler 6.9 gm] 2 puff IH BID 12/09/13 Albuterol Sulfate [Proair HFA Inhalation Aerosol 8.5 gm MDI] 2 puff IH QID #0 hfa.aer.ad 01/08/16 Citalopram Hydrobromide [Celexa 20 mg Tablet] 40 mg PO DAILY #0 tablet 01/08/16 Gabapentin [Neurontin 300 mg Capsule] 300 mg PO .ASDIR PRN #0 capsule 01/08/16 Nebulizer [Nebulizer Machine] 1 each MC .ASDIR PRN 01/08/16 Oxycodone HCl/Acetaminophen [Percocet 5-325 mg Tablet] 1 - 2 tab PO Q6 PRN 01/08/16 Docusate Sodium [Colace 100 mg Capsule] 100 mg PO BID #60 capsule 01/09/16 Polyethylene Glycol 3350 [Miralax Powder 17 Gm/Packet] 17 gm PO DAILY #30 po wd.pack 01/09/16 Alprazolam [Xanax] 1 tab PO TID 01/11/16 Budesonide/Formoterol Fumarate [Symbicort HFA 80-4.5 mcg Inhaler 6.9 gm] 2 puff IH DAILY 01/11/16 Quetiapine Fumarate [Seroquel] 1 tab PO QHS 01/11/16 Benzonatate [Tessalon Perles 100 mg Capsule] 100 mg PO ASDIR PRN #40 capsule 06/18/16 Cephalexin Monohydrate [Keflex 500 mg Capsule] 500 mg PO BID 7 Days capsule 07/08/16 Ondansetron [Zofran Odt 4 mg Tablet] 1 - 2 tab PO Q4H PRN #15 tab.rapdis 07/08/16 Oxycodone HCl/Acetaminophen [Percocet 5-325 mg Tablet] 1 - 2 tab PO Q4H PRN #15 tablet 07/08/16 Oxycodone HCl/Acetaminophen [Percocet 5-325 mg Tablet] 1 - 2 tab PO Q4H PRN #25 tablet 07/11/16 Oxycodone HCl/Acetaminophen [Percocet 5-325 mg Tablet] 1 tab PO Q4H PRN #15 tablet 10/14/16 Tramadol HCl [Ultram 50 mg Tablet] 1 - 2 tab PO Q4H PRN #20 tablet 10/16/16 Hydrocodone/Acetaminophen [Cam[place] 5-325 mg Tablet] 1 tab PO Q6 #10 tablet 02/23/17 Tramadol HCl 50 mg PO Q6HP PRN #10 tablet 05/20/17 Naproxen 500 mg PO BID PRN #30 tablet 06/23/17 Promethazine HCl [Phenergan 25 mg Tablet] 1 - 2 tab PO Q6H PRN #15 tablet 09/26/17 Benzonatate [Tessalon Perle 100 mg Capsule] 100 mg PO Q8HP PRN #40 cap 01/03/18 Ibuprofen [Motrin 600 mg Tablet] 600 mg PO Q8HP PRN #21 tablet 01/03/18 Allergies/Adverse Reactions: No Known Allergies Allergy (Verified 03/24/18 09:43) Review of Systems Constitutional: ABSENT: chills, fever(s), headache(s), weight gain, weight loss Eyes: ABSENT: visual disturbances Ears: ABSENT: hearing changes Cardiovascular: PRESENT: chest pain. ABSENT: dyspnea on exertion, edema, orthropnea, palpitations Respiratory: PRESENT: cough, dyspnea, sputum. ABSENT: hemoptysis Gastrointestinal: ABSENT: abdominal pain, constipation, diarrhea, hematemesis, hematochezia, nausea, vomiting Genitourinary: ABSENT: dysuria, hematuria Musculoskeletal: ABSENT: joint swelling Integumentary: ABSENT: rash, wounds Neurological: ABSENT: abnormal gait, abnormal speech, confusion, dizziness, focal weakness, syncope Psychiatric: ABSENT: anxiety, depression, homidical ideation, suicidal ideation Endocrine: ABSENT: cold intolerance, heat intolerance, polydipsia, polyuria Hematologic/Lymphatic: ABSENT: easy bleeding, easy bruising Physical Exam Vital Signs: Temp Pulse Resp BP Pulse Ox 97.9 F 56 L 19 108/74 95 03/24/18 09:54 03/24/18 10:42 03/24/18 11:32 03/24/18 11:32 03/24/18 11:32 Intake & Output 03/23/18 03/24/18 03/25/18 06:59 06:59 06:59 Weight 54.1 kg General appearance: PRESENT: no acute distress, disheveled, thin, well- developed, well-nourished Head exam: PRESENT: atraumatic, normocephalic Eye exam: PRESENT: conjunctiva pink, EOMI, PERRLA. ABSENT: scleral icterus Ear exam: PRESENT: normal external ear exam Mouth exam: PRESENT: moist, tongue midline Neck exam: ABSENT: carotid bruit, JVD, lymphadenopathy, thyromegaly Respiratory exam: PRESENT: prolonged expiratory phas, symmetrical, unlabored, wheezes. ABSENT: rales, rhonchi Cardiovascular exam: PRESENT: RRR, +S1, +S2. ABSENT: diastolic murmur, rubs, systolic murmur Pulses: PRESENT: normal dorsalis pedis pul Vascular exam: PRESENT: normal capillary refill GI/Abdominal exam: PRESENT: normal bowel sounds, soft. ABSENT: distended, guarding, mass, organolmegaly, rebound, tenderness Rectal exam: PRESENT: deferred Extremities exam: PRESENT: full ROM. ABSENT: calf tenderness, clubbing, pedal edema Neurological exam: PRESENT: alert, awake, oriented to person, oriented to place, oriented to time, oriented to situation, CN II-XII grossly intact. ABSENT: motor sensory deficit Psychiatric exam: PRESENT: appropriate affect, normal mood. ABSENT: homicidal ideation, suicidal ideation Skin exam: PRESENT: dry, intact, warm. ABSENT: cyanosis, rash Results Laboratory Results: 03/24/18 10:12 03/24/18 10:12 03/24/18 03/24/18 10:12 10:12 WBC 5.1 RBC 4.72 Hgb 14.9 Hct 42.4 MCV 90 MCH 31.6 MCHC 35.2 RDW 13.0 Plt Count 263 Seg Neutrophils % 57.3 Lymphocytes % 30.2 Monocytes % 6.0 Eosinophils % 5.7 Basophils % 0.8 Absolute Neutrophils 2.9 Absolute Lymphocytes 1.5 Absolute Monocytes 0.3 Absolute Eosinophils 0.3 Absolute Basophils 0.0 Sodium 138.5 Potassium 3.4 L Chloride 99 Carbon Dioxide 28 Anion Gap 12 BUN 17 Creatinine 0.68 Est GFR ( Amer) > 60 Est GFR (Non-Af Amer) > 60 Glucose 187 H Calcium 10.3 H Total Bilirubin 1.1 AST 22 ALT 13 Alkaline Phosphatase 56 Total Protein 7.9 Albumin 4.8 03/24/18 03/24/18 03/24/18 10:12 10:12 12:59 Creatine Kinase 56 CK-MB (CK-2) 1.67 Troponin I < 0.012 < 0.012 Impressions: Chest X-Ray 03/24/18 10:01 IMPRESSION: No acute disease. Assessment & Plan - Diagnosis (1) Atypical chest pain Is this a current diagnosis for this admission?: Yes Plan: The patient will be admitted to the medical floor on continuous cardiac telemetry. Will obtain d-dimer, uric acid, and CRP to further evaluate for causes of diffuse T wave inversion. Continue to trend troponins. Lipid panel in a.m. Will obtain echocardiogram. Anticipate stress test when available Monday morning. Daily aspirin and statin therapy. Nitroglycerin SL tabs as needed chest pain with IV morphine for unrelieved chest discomfort. Cardiac diet. (2) COPD exacerbation Is this a current diagnosis for this admission?: Yes Plan: She will be provided supplemental oxygen as needed to maintain saturations greater than 89%. Scheduled and as needed nebulizer treatments. IV Solu-Medrol. Mucinex twice daily. Flutter valve to bedside. Consider repeat chest x-ray tomorrow once rehydrated with IV fluids. (3) Bipolar 1 disorder Is this a current diagnosis for this admission?: Yes Plan: We will continue the patient's home dose Seroquel. (4) Tobacco dependence Is this a current diagnosis for this admission?: Yes Plan: Smoking cessation is encouraged. Nicotine replacement therapies are provided. (5) Hypotension Is this a current diagnosis for this admission?: Yes Plan: The patient is noted to have mild hypotension 89/53 - 110/75. Possibly r/t Nitroglycerin SL tab and IV Fentanyl for treatment of chest pain. Will provide IV NS 1L bolus followed by gentle IV maintenance fluids. - Time Time Spent: 50 to 70 Minutes Medications reviewed and adjusted accordingly: Yes Anticipated discharge: Home Within: within 48 hours
[2018-03-24] MEDS: MORPHINE SULFATE 10 MG/ML INJ IV PRN ×2 (17:13→20:48)
[2018-03-24] MEDS: IPRATROPIUM/ALBUTEROL 0.5-2.5 MG/3 ML AMPUL NEB SCH (19:55)
[2018-03-24] MEDS ORDERED: AMLODIPINE BESYLATE 2.5 MG TABLET PO SCH (22:00)
[2018-03-24] MEDS: GUAIFENESIN 600 MG TABLET.SA PO SCH (22:56)
[2018-03-24] MEDS: QUETIAPINE FUMARATE 25 MG TABLET PO SCH (22:56)
[2018-03-24] MEDS: FAMOTIDINE 20 MG TABLET PO SCH (22:56)
[2018-03-24] MEDS: ATORVASTATIN CALCIUM 20 MG TABLET PO SCH (22:56)
[2018-03-24] MEDS: NORMAL SALINE 1000 ML 1,000 ML IV PRN (22:57)
[2018-03-24] MEDS ORDERED: AMLODIPINE BESYLATE 2.5 MG TABLET ONE (23:05)
[2018-03-25] MEDS: MORPHINE SULFATE 10 MG/ML INJ IV PRN (02:11)
[2018-03-25 05:56] LABS: TRIGLYCERIDES 41 mg/dL (<150)
[2018-03-25] MEDS ORDERED: METHYLPREDNISOLONE INJ 40 MG/1 ML SDV IV SCH (06:00)
[2018-03-25 06:06] LABS: DIRECT LDL 76 mg/dL (<100)
[2018-03-25] MEDS: NORMAL SALINE 1000 ML 1,000 ML IV PRN (06:41)
[2018-03-25] MEDS ORDERED: IBUPROFEN 600 MG TABLET PO PRN (08:02)
[2018-03-25] MEDS: IPRATROPIUM/ALBUTEROL 0.5-2.5 MG/3 ML AMPUL NEB SCH ×2 (08:43→20:26)
[2018-03-25] MEDS: DOCUSATE SODIUM 100 MG CAPSULE PO SCH (10:13)
[2018-03-25] MEDS: FAMOTIDINE 20 MG TABLET PO SCH ×2 (10:13→22:27)
[2018-03-25] MEDS: ASPIRIN 81 MG TABLET, ENT COATED PO SCH (10:13)
[2018-03-25] MEDS: GUAIFENESIN 600 MG TABLET.SA PO SCH ×2 (10:13→22:27)
[2018-03-25] MEDS: NICOTINE 14 MG/24 HR PATCH.TD24 TD SCH (10:13)
[2018-03-25] MEDS: LIDOCAINE 5% (700 MG) TRANSDERMAL ADH..PATCH TP SCH (10:14)
[2018-03-25] MEDS: TRAMADOL HCL 50 MG TABLET PO PRN ×3 (10:22→22:27)
--- NOTE | 2018-03-25 12:04 | RADIOLOGY REPORT (SQ) ---
EXAM DESCRIPTION: T SPINE AP/LAT COMPLETED DATE/TIME: 03/25/2018 11:48 am REASON FOR STUDY: back pain radiating to bilateral shoulders COMPARISON: None. NUMBER OF VIEWS: Two views. TECHNIQUE: AP and lateral radiographic images acquired of the thoracic spine. LIMITATIONS: None. FINDINGS: MINERALIZATION: Normal. ALIGNMENT: Normal. No scoliosis. VERTEBRAE: No fracture or bone lesion. Maintained height, normal segmentation. DISCS: No significant loss of height or significant narrowing. No large osteophytes. HARDWARE: None in the spine. MEDIASTINUM AND SOFT TISSUES: Normal heart size and aortic contour. No soft tissue abnormality. VISUALIZED LUNG BLUE: Clear. OTHER: No other significant finding. IMPRESSION: NO SIGNIFICANT RADIOGRAPHIC FINDING IN THE THORACIC SPINE. TECHNICAL DOCUMENTATION: JOB ID: [id number] [employer]- All Rights Reserved Reading location - IP/workstation name: [email or web address]
--- NOTE | 2018-03-25 12:25 | RADIOLOGY REPORT (SQ) ---
EXAM DESCRIPTION: CTA CHEST COMPLETED DATE/TIME: 03/25/2018 12:01 pm REASON FOR STUDY: atypical chest pain COMPARISON: None. TECHNIQUE: CT scan of the chest performed using helical scanning technique with dynamic intravenous contrast injection. Images reviewed with lung, soft tissue and bone windows. Reconstructed coronal and sagittal MPR images reviewed. Additional 3 dimensional post-processing performed to develop Maximal Intensity Projection images (NE P). All images stored on PACS. All CT scanners at this facility use dose modulation, iterative reconstruction, and/or weight based d osing when appropriate to reduce radiation dose to as low as reasonably achievable (ALARA). [facility]: Dose Right [facility]: CareDose [facility]: Dose Right [facility]: Teradose 4D [facility]: [employer] CONTRAST TYPE AND DOSE: contrast/concentration: Isovue 350.00 mg/ml; Total Contrast Delivered: 65.0 ml; Total Saline Delivered: 89.0 ml Contrast bolus optimized for the pulmonary arteries. Not diagnostic for the aorta. RENAL FUNCTION: GFR > 60. RADIATION DOSE: CT Rad equipment meets quality standard of care and radiation dose reduction techniq ues were employed. CTDIvol: 14.3 - 19.8 mGy. DLP: 592 mGy-cm. . LIMITATIONS: None. FINDINGS: LUNGS AND PLEURA: No masses, infiltrates, or pneumothorax. No pleural effusions or pleura l calcifications. AORTA AND GREAT VESSELS: No aneurysm. Contrast bolus not optimized for the aorta. HEART: No pericardial effusion. No significant coronary artery calcifications. PULMONARY ARTERIES: No emboli visualized in the main pulmonary arteries or the segmental branches. HILAR AND MEDIASTINAL STRUCTURES: No identified masses or abnormal nodes. HARDWARE: None in the chest. UPPER ABDOMEN: No significant findings. Limited exam. THYROID AND OTHER SOFT TISSUES: No masses. No adenopathy. BONES: No acute or significant finding. 3D MIPS: Confirm above findings. OTHER: No other significant finding. IMPRESSION: NORMAL CTA OF THE CHEST. NO PULMONARY EMBOLI. COMMENT: Quality ID # [id number]: Final reports with documentation of one or more dose reduction techniques (e.g., Automated exposure control, adjustment of the mA and/or kV according to patient size, use of iterative reconstruction technique) TECHNICAL DOCUMENTATION: JOB ID: [id number] [employer]- All Rights Reserved Reading location - IP/workstation name: [email or web address]
--- NOTE | 2018-03-25 13:09 | PDOC PROGRESS REPORT ---
Subjective Progress Note for:: 03/25/18 Subjective:: The patient is a 52 year old female with a past medical history significant for [place] (stent x1), COPD, HTN, HLD, remote substance abuse and tobacco dependence with continuous use who was admitted 03/24/2018 for atypical chest pain and COPD exacerbation. The patient was seen on morning rounds. She was found resting in bed comfortably on room air. Upon my entering the room, she was noted to begin crying. She tells me that she continues to have bilateral shoulder pain without aggravating or alleviating factors or associated symptoms. She states that IV morphine has been ineffective. She denies fever, chills, headache, dizziness, palpitations, classic cardiac c hest pain, orthopnea, abdominal pain, nausea vomiting and diarrhea. She does endorse slight dyspnea on exertion and a productive cough. She has no new questions or concerns. No concerns per nursing. Reason For Visit: ATYPICAL CHEST PAIN,COPD EXACERBATION Physical Exam Vital Signs: Temp Pulse Resp BP Pulse Ox 97.3 F 53 L 16 103/58 L 100 03/25/18 10:45 03/25/18 10:45 03/25/18 10:45 03/25/18 10:45 03/25/18 10:45 Intake & Output 03/24/18 03/25/18 03/26/18 06:59 06:59 06:59 Intake Total 1967 Balance 1967 Weight 56.8 kg General appearance: PRESENT: no acute distress, disheveled, thin, well- developed, well-nourished Head exam: PRESENT: atraumatic, normocephalic Eye exam: PRESENT: conjunctiva pink, EOMI, PERRLA. ABSENT: scleral icterus Ear exam: PRESENT: normal external ear exam Mouth exam: PRESENT: moist, tongue midline Neck exam: ABSENT: carotid bruit, JVD, lymphadenopathy, thyromegaly Respiratory exam: PRESENT: clear to auscultation cony, prolonged expiratory phas, symmetrical, unlabored. ABSENT: rales, rhonchi, wheezes Cardiovascular exam: PRESENT: RRR, +S1, +S2. ABSENT: diastolic murmur, rubs, systolic murmur Vascular exam: PRESENT: normal capillary refill GI/Abdominal exam: PRESENT: normal bowel sounds, soft. ABSENT: distended, guarding, mass, organolmegaly, rebound, tenderness Rectal exam: PRESENT: deferred Extremities exam: PRESENT: full ROM. ABSENT: calf tenderness, clubbing, pedal edema Neurological exam: PRESENT: alert, awake, oriented to person, oriented to place, oriented to time, oriented to situation, CN II-XII grossly intact. ABSENT: motor sensory deficit Psychiatric exam: PRESENT: anxious, appropriate affect, normal mood. ABSENT: homicidal ideation, suicidal ideation Skin exam: PRESENT: dry, intact, warm. ABSENT: cyanosis, rash Results Laboratory Results: 03/24/18 10:12 03/24/18 10:12 03/24/18 03/25/18 10:12 03:59 Uric Acid 5.3 C-Reactive Protein 18.4 H Triglycerides 41 Cholesterol 150.30 LDL Cholesterol Direct 76 VLDL Cholesterol 8.0 L HDL Cholesterol 59 03/24/18 03/24/18 03/24/18 10:12 10:12 12:59 Creatine Kinase 56 CK-MB (CK-2) 1.67 Troponin I < 0.012 < 0.012 03/24/18 19:10 Creatine Kinase CK-MB (CK-2) Troponin I < 0.012 Impressions: Chest X-Ray 03/24/18 10:01 IMPRESSION: No acute disease. Chest/Abdomen CTA 03/25/18 00:00 IMPRESSION: NORMAL CTA OF THE CHEST. NO PULMONARY EMBOLI. Thoracic Spine X-Ray 03/25/18 00:00 IMPRESSION: NO SIGNIFICANT RADIOGRAPHIC FINDING IN THE THORACIC SPINE. Assessment & Plan - Diagnosis (1) Atypical chest pain Is this a current diagnosis for this admission?: Yes Plan: The patient will be admitted to the medical floor on continuous cardiac teleme try. D-dimer and uric acid were normal. CRP minimally elevated to 18.4. Troponins are negative x3 Lipid panel is acceptable.. Echocardiogram has been obtained; formal report pending. Thoracic spine x-ray is normal. CTA of the chest is normal; no PE or evidence of pericardial effusion Anticipate stress test Monday morning if COPD is improved. Daily aspirin and statin therapy. Nitroglycerin SL tabs as needed chest pain. Cardiac diet. (2) COPD exacerbation Is this a current diagnosis for this admission?: Yes Plan: She will be provided supplemental oxygen as needed to maintain saturations greater than 89%. Scheduled and as needed nebulizer treatments. IV Solu-Medrol; begin weaning. Mucinex twice daily. Flutter valve to bedside. CTA of the chest was normal. (3) Bipolar 1 disorder Is this a current diagnosis for this admission?: Yes Plan: We will continue the patient's home dose Seroquel. (4) Tobacco dependence Is this a current diagnosis for this admission?: Yes Plan: Smoking cessation is encouraged. Nicotine replacement therapies are provided. (5) Hypotension Is this a current diagnosis for this admission?: Yes Plan: The patient is noted to have mild hypotension 89/53 - 110/75. Possibly related to opiate pain medication vs patient's baseline. She has received a total of 2 L of IV fluids without effect. Orthostatic vital signs were normal. These may be normal blood pressures for the patient's height and stature. Continue to monitor. - Time Time Spent with patient: 15-24 minutes Medications reviewed and adjusted accordingly: Yes Anticipated discharge: Home Within: within 24 hours
[2018-03-25] MEDS: METHYLPREDNISOLONE INJ 40 MG/1 ML SDV IV SCH ×2 (14:38→22:27)
[2018-03-25 15:07] LABS: APPEARANCE,URINE CLEAR; BILIRUBIN,URINE NEGATIVE (NEGATIVE); COLOR,URINE STRAW; GLUCOSE, URINE >=500 mg/dL (NEGATIVE); KETONES,URINE NEGATIVE (NEGATIVE); LEUKOCYTE ESTERASE,URINE NEGATIVE (NEGATIVE); NITRITE,URINE NEGATIVE (NEGATIVE); PROTEIN,URINE NEGATIVE (NEGATIVE); URINE SPECIFIC GRAVITY 1.012; UROBILINOGEN,URINE NEGATIVE mg/dL (<2.0)
[2018-03-25 15:22] LABS: URINE AMPHETAMINES SCREEN NEGATIVE; URINE BARBITURATES SCREEN NEGATIVE; URINE BENZODIAZEPINES SCREEN NEGATIVE; URINE MARIJUANA (THC) SCREEN NEGATIVE; URINE METHADONE SCREEN NEGATIVE; URINE PHENCYCLIDINE SCREEN NEGATIVE
[2018-03-25 15:25] LABS: URINE COCAINE SCREEN UNCONFIRMED POSITIVE
[2018-03-25] MEDS: ATORVASTATIN CALCIUM 20 MG TABLET PO SCH (22:27)
[2018-03-25] MEDS: QUETIAPINE FUMARATE 25 MG TABLET PO SCH (22:27)
[2018-03-26] MEDS: METHYLPREDNISOLONE INJ 40 MG/1 ML SDV IV SCH (06:01)
[2018-03-26] MEDS: TRAMADOL HCL 50 MG TABLET PO PRN (07:38)
[2018-03-26] MEDS: IPRATROPIUM/ALBUTEROL 0.5-2.5 MG/3 ML AMPUL NEB SCH (07:57)
[2018-03-26] MEDS: GUAIFENESIN 600 MG TABLET.SA PO SCH (09:59)
[2018-03-26] MEDS: FAMOTIDINE 20 MG TABLET PO SCH (09:59)
[2018-03-26] MEDS: DOCUSATE SODIUM 100 MG CAPSULE PO SCH (09:59)
[2018-03-26] MEDS: NICOTINE 14 MG/24 HR PATCH.TD24 TD SCH (09:59)
[2018-03-26] MEDS: ASPIRIN 81 MG TABLET, ENT COATED PO SCH (09:59)
[2018-03-26] MEDS: LIDOCAINE 5% (700 MG) TRANSDERMAL ADH..PATCH TP SCH (10:00)
[2018-03-26 10:50] VITALS: BP 113/54
--- NOTE | 2018-03-26 13:32 | EKG REPORT ---
SEVERITY:- BORDERLINE ECG - SINUS RHYTHM BORDERLINE LEFT AXIS DEVIATION LOW VOLTAGE IN FRONTAL LEADS BORDERLINE T ABNORMALITIES, ANT-LAT LEADS : Confirmed by: Leonardo Seymour 26-Mar-2018 13:31:51
--- NOTE | 2018-03-26 17:39 | PDOC DISCHARGE SUMMARY ---
General - Admit/Disc Date/PCP Admission Date/Primary Care Provider: 03/25/18 15:21 MIREYA BRUMFIELD PA-C Discharge Date: 03/26/18 - Discharge Diagnosis (1) Atypical chest pain Is this a current diagnosis for this admission?: Yes Summary: The patient was be admitted to the medical floor on continuous cardiac telemetry. EKG on day of admission demonstrated T wave inversion to diffuse leads; repeat EKG on day of discharge showed inverted T waves to anterior leads only. D-dimer and uric acid were normal. CRP minimally elevated to 18.4. Troponins are negative x3 Lipid panel is acceptable.. Echocardiogram has been obtained; formal report pending. Thoracic spine x-ray is normal. CTA of the chest is normal; no PE or evidence of pericardial effusion UDS positive for cocaine; patient admits to doing "only one line of coke because I know it is bad for me." The patient was started on daily aspirin and statin therapy. Spoke with Dr. Colindres; advised to start patient on isosorbide, continue home dose amlodipine, and instruct the patient to contact his office on Monday to schedule outpatient stress testing. The patient is instructed to discontinue all illicit drug use, encouraged smoking cessation, and provided prescriptions for NicoDerm patches, aspirin, isosorbide, and statin therapy. She was instructed to follow-up with her primary care provider within 1 week and to contact Dr. Alegria's office as above. She was instructed to return to the emergency department as needed for any concerning symptoms. (2) COPD exacerbation Is this a current diagnosis for this admission?: Yes Summary: Resolved. Patient was provided as needed nebulizer treatments and placed on IV Solu- Medrol. She is discharged on p.o. prednisone, Mucinex, and instructed to resume her home regiment of Spiriva and Symbicort with albuterol rescue inhaler as needed. (3) Bipolar 1 disorder Is this a current diagnosis for this admission?: Yes Summary: The patient's home dose Seroquel was continued. (4) Tobacco dependence Is this a current diagnosis for this admission?: Yes Summary: Smoking cessation was encouraged; she was provided a prescription for NicoDerm patches at discharge. (5) Hypotension Is this a current diagnosis for this admission?: Yes Summary: Stable and asymptomatic. Orthostatic vital signs were normal. (6) Cocaine abuse Is this a current diagnosis for this admission?: Yes Summary: UDS was positive for opiates (administered while admitted) and cocaine. Patient does admit to having done "only one line of Coke." She states that she understands that this is the likely cause of her chest discomfort and acknowledges that this is a dangerous practice. She is instructed to discontinue all illicit drug use. - Additional Information Resuscitation Status: Full Code Discharge Diet: Cardiac Discharge Activity: Activity As Tolerated, Balance Activity w/Rest Prescriptions: Atorvastatin Calcium [Lipitor 20 mg Tablet] 20 mg PO QHS #30 tablet Isosorbide Dinitrate [Isordil Titradose 20 mg Tablet] 20 mg PO BID #60 tablet Nicotine [Nicoderm 14 mg/24 Hr Transdermal Patch] 1 each TD DAILY #30 patch.td24 Prednisone [Deltasone 20 mg Tablet] 60 mg PO DAILY #12 tablet Home Medications: Budesonide/Formoterol Fumarate [Symbicort HFA 80-4.5 mcg Inhaler 6.9 gm] 2 puff IH BID 12/09/13 Albuterol Sulfate [Proair HFA Inhalation Aerosol 8.5 gm MDI] 2 puff IH QID #0 hfa.aer.ad 01/08/16 Quetiapine Fumarate [Seroquel] 1 tab PO QHS 01/11/16 Amlodipine Besylate [Norvasc 2.5 mg Tablet] 2.5 mg PO DAILY 03/25/18 Aspirin [Ecotrin] 81 mg PO DAILY PRN 03/25/18 Ergocalciferol (Vitamin D2) [Vitamin D2] 50,000 unit PO MO@1000 03/25/18 Tiotropium [place] [Spiriva Respimat] 1 cap IN DAILY 03/25/18 Atorvastatin Calcium [Lipitor 20 mg Tablet] 20 mg PO QHS #30 tablet 03/26/18 Ibuprofen [Motrin 600 mg Tablet] 600 mg PO Q8HP PRN tablet 03/26/18 Isosorbide Dinitrate [Isordil Titradose 20 mg Tablet] 20 mg PO BID #60 tablet 03/26/18 Nicotine [Nicoderm 14 mg/24 Hr Transdermal Patch] 1 each TD DAILY #30 patch.td24 03/26/18 Prednisone [Deltasone 20 mg Tablet] 60 mg PO DAILY #12 tablet 03/26/18 History of Present Illness History of Present Illness: SABINE HOUSE is a 52 year old female with a past medical history significant for FL (stent x1), COPD, HTN, HLD, remote substance abuse and tobacco dependence with continuous use who resented to the emergency department today with a complaint of 5 days of progressively worsening bilateral upper back and shoulder pain (L>R) is similar to the pain she had during her non-STEMI 8 years ago. She denies alleviating or aggravating factors. She does endorse dyspnea and a productive cough stating that she has had numerous COPD flareups for the previous 3 months. She denies fever, chills, palpitations, orthopnea, abdominal pain, nausea vomiting and diarrhea. Evaluation in the emergency department revealed an unremarkable laboratory evaluation with negative troponins x2, benign chest x-ray, an EKG with a left anterior fascicular block and inverted T waves to diffuse leads. The patient's discomfort has persisted despite subungual nitroglycerin and IV fentanyl. She is referred to the hospitalist service for admission and chest pain rule out. Physical Exam Vital Signs: Temp Pulse Resp BP Pulse Ox 97.3 F 66 16 113/54 L 98 03/26/18 11:10 03/26/18 11:10 03/26/18 11:10 03/26/18 11:10 03/26/18 11:10 Intake & Output 03/25/18 03/26/18 03/27/18 06:59 06:59 06:59 Intake Total 1965 5262 Output Total 1200 Balance 1966 4062 Weight 56.8 kg 59 kg General appearance: PRESENT: no acute distress, thin, well-developed, well- nourished Head exam: PRESENT: atraumatic, normocephalic Eye exam: PRESENT: conjunctiva pink, EOMI, PERRLA. ABSENT: scleral icterus Ear exam: PRESENT: normal external ear exam Mouth exam: PRESENT: moist, tongue midline Neck exam: ABSENT: carotid bruit, JVD, lymphadenopathy, thyromegaly Respiratory exam: PRESENT: clear to auscultation cony, symmetrical, unlabored. ABSENT: rales, rhonchi, wheezes Cardiovascular exam: PRESENT: RRR. ABSENT: diastolic murmur, rubs, systolic mur mur Pulses: PRESENT: normal dorsalis pedis pul Vascular exam: PRESENT: normal capillary refill GI/Abdominal exam: PRESENT: normal bowel sounds, soft. ABSENT: distended, guarding, mass, organolmegaly, rebound, tenderness Rectal exam: PRESENT: deferred Extremities exam: PRESENT: full ROM. ABSENT: calf tenderness, clubbing, pedal edema Neurological exam: PRESENT: alert, awake, oriented to person, oriented to place, oriented to time, oriented to situation, CN II-XII grossly intact. ABSENT: motor sensory deficit Psychiatric exam: PRESENT: agitated, appropriate affect, normal mood. ABSENT: homicidal ideation, suicidal ideation Skin exam: PRESENT: dry, intact, warm. ABSENT: cyanosis, rash Results Laboratory Results: 03/24/18 10:12 03/24/18 10:12 03/24/18 03/24/18 03/24/18 10:12 10:12 12:59 Creatine Kinase 56 CK-MB (CK-2) 1.67 Troponin I < 0.012 < 0.012 03/24/18 19:10 Creatine Kinase CK-MB (CK-2) Troponin I < 0.012 Impressions: Chest X-Ray 03/24/18 10:01 IMPRESSION: No acute disease. Chest/Abdomen CTA 03/25/18 00:00 IMPRESSION: NORMAL CTA OF THE CHEST. NO PULMONARY EMBOLI. Thoracic Spine X-Ray 03/25/18 00:00 IMPRESSION: NO SIGNIFICANT RADIOGRAPHIC FINDING IN THE THORACIC SPINE. Qualifiers - * PATIENT BEING DISCHARGED WITH ANY OF THE FOLLOWING DIAGNOSIS: No Plan Discharge Plan: Discharged home with self-care. Follow-up with primary care provider within [address] Posey's office on Monday to schedule an outpatient stress test. Return to the emergency department as needed for any concerning symptoms. Time Spent: Less than 30 Minutes
--- NOTE | 2018-03-27 20:59 | XCELERA REPORT ---
[address] [address] Transthoracic Echocardiogram Report Name: SABINE HOUSE Age: 52 yrs Gender: Female : 1965 Patient Status: Inpatient [address] Study Date: 03/24/2018 04:45 PM Height: 62 in Weight: 119 lb BSA: 1.5 m2 Procedure: A two-dimensional transthoracic echocardiogram with color flow Doppler was performed. Study Quality: Poor. The study was technically difficult with many images being suboptimal in quality. The study was technically limited with all images being suboptimal in quality. Reason For Study: Chest pain History: Chest pain. Ordering Physician: MERISSA DÍAZ Performed By: Eliecer Puckett Interpretation Summary Chest pain Probably normal LV size, with no LVH.No defenite regional wall motion abnormality.LVEf is normal and greater than 55%. Doppler measurements suggest normal left ventricular diastolic function The right ventricle is not well visualized secondary to technical limitations Right atrium not well visualized secondary to technical limitations The left atrial size is normal. There is no evidence of mitral valve prolapse. There is no mitral valve stenosis. There is a trace amount of mitral regurgitation There is no aortic valvular vegetation. There is no aortic valve stenosis There is no LVOT obstruction. There is a trace amount of aortic regurgitation There is no tricuspid stenosis. There is a mild to moderate amount of tricuspid regurgitation There is mild pulmonary hypertension by echo RVSP is 47 mm of Hg , with RA mean of 10. The pulmonic valve is not well visualized. There is no pericardial effusion. MMode/2D Measurements & Calculations RVDd: 2.6 cm LVIDd: 4.7 cm FS: 20.1 % Ao root diam: 3.5 cm IVSd: 0.70 cm LVIDs: 3.7 cm EDV(Teich): 100.5 ml Ao root area: 9.8 cm2 LVPWd: 0.72 cm ESV(Teich): 59.1 ml LA dimension: 2.7 cm EF(Teich): 41.2 % LVOT diam: 2.0 cm LVOT area: 3.3 cm2 Doppler Measurements & Calculations MV E max keron: MV P1/2t max keron: Ao V2 max: AI max keron: 82.9 cm/sec 83.4 cm/sec 89.0 cm/sec 294.1 cm/sec MV A max keron: MV P1/2t: 55.0 msec Ao max PG: AI max P.6 mmHg 51.8 cm/sec MVA(P1/2t): 4.0 cm2 3.2 mmHg AI dec slope: MV E/A: 1.6 MV dec slope: CLIFF(V,D): 2.6 cm2 187.9 cm/sec2 AI P1/2t: 458.4 msec 444.4 cm/sec2 LV V1 max PG: PA V2 max: TR max keron: AV P1/2t-pr_phl: 2.0 mmHg 65.2 cm/sec 304.7 cm/sec 458.4 msec LV V1 max: PA max P.7 mmHg TR max P.6 cm/sec 37.1 mmHg MV P1/2t-pr_phl: 55.0 msec Left Ventricle Probably normal LV size, with no LVH.No defenite regional wall motion abnormality.LVEf is normal and greater than 55%. Doppler measurements suggest normal left ventricular diastolic function. There is no thrombus. Right Ventricle The right ventricle is not well visualized secondary to technical limitations. Atria Right atrium not well visualized secondary to technical limitations. The left atrial size is normal. Mitral Valve There is no evidence of mitral valve prolapse. There is no mitral valve stenosis. There is a trace amount of mitral regurgitation. Aortic Valve There is no aortic valvular vegetation. There is no aortic valve stenosis. There is no LVOT obstruction. There is a trace amount of aortic regurgitation. Tricuspid Valve There is no tricuspid stenosis. There is a mild to moderate amount of tricuspid regurgitation. There is mild pulmonary hypertension by echo. RVSP is 47 mm of Hg , with RA mean of 10. Pulmonic Valve The pulmonic valve is not well visualized. Effusions There is no pericardial effusion. : MERISSA DÍAZ > Kristine Colindres
== END 2018-03-26 11:37 | disposition home or self-care (01) | DRG 313 ==
LOC: ER 09:42 → EH 15:47 → INTOOBSV 15:47 → OBSVTOIN 15:47 → 4N 18:53 → OBSVTOIN 03-25 15:21
PROVIDERS: ADMIT Internal Medicine; ATTEND Internal Medicine
DX: R07.89 Other chest pain (principal); J44.1 Chronic obstructive pulmonary disease with (acute) exacerbation; T40.5X5A Adverse effect of cocaine, initial encounter; F14.90 Cocaine use, unspecified, uncomplicated; I50.9 Heart failure, unspecified; I25.10 Atherosclerotic heart disease of native coronary artery without angina pectoris; K21.9 Gastro-esophageal reflux disease without esophagitis; I95.2 Hypotension due to drugs; T50.7X5A Adverse effect of analeptics and opioid receptor antagonists, initial encounter; Y92.230 Patient room in hospital as the place of occurrence of the external cause; F31.9 Bipolar disorder, unspecified; F41.9 Anxiety disorder, unspecified; F17.210 Nicotine dependence, cigarettes, uncomplicated; I25.2 Old myocardial infarction; Z79.891 Long term (current) use of opiate analgesic; Z79.51 Long term (current) use of inhaled steroids; Z79.899 Other long term (current) drug therapy
CPT/HCPCS: 36415; 71046; 71275; 72070; 80053; 80061; 80307; 80353; 81001; 82550; 82553; 84484; 84550; 85025; 85379; 86140; 93005; 93010; 93306; 94640; 94667; 96374; 96375; 99285; G0378; G0480; J2270; J2920; J2930; J3010; J3490; J7030; J7620

== ENCOUNTER 2018-04-23 10:34 | Emergency (ER) | payer MEDICAID ==
[2018-04-23 10:40] VITALS: BP 103/65
[2018-04-23] MEDS ORDERED: OXYCODONE-ACETAMINOPHEN 5-325 MG TABLET PO ONE (11:25)
--- NOTE | 2018-04-23 11:31 | ER Document Report ---
HPI - HPI Time Seen by Provider: 04/23/18 11:11 Pain Level: 5 Notes: Patient is a 52-year-old female who presents to the emergency department chief complaint of abscess. Patient has area that is tender and red to her right inner thigh just superior to the knee. She reports history of abscesses in the past. She states this is been there for approximately 3 days. Patient denies any drainage or fevers. Patient reports history of MRSA diagnosed at another hospital. - REPRODUCTIVE LMP: hyst Reproductive: DENIES: : Past Medical History - General Information source: Patient - Social History Smoking Status: Current Every Day Smoker Frequency of alcohol use: None Drug Abuse: None Family History: Reviewed & Not Pertinent - Past Medical History Cardiac Medical History: Reports: Hx Congestive Heart Failure, Hx Coronary Artery Disease, Hx Heart Attack, Hx Hypercholesterolemia Denies: Hx Hypertension Pulmonary Medical History: Reports: Hx Asthma, Hx Bronchitis, Hx COPD, Hx Pneumonia Denies: Hx Tuberculosis Neurological Medical History: Denies: Hx Cerebrovascular Accident, Hx Seizures Renal/ Medical History: Reports: Hx Kidney Stones. Denies: Hx End Stage Renal Disease, Hx Peritoneal Dialysis GI Medical History: Reports: Hx Gastroesophageal Reflux Disease. Denies: Hx Cirrhosis, Hx Gastritis, Hx Hepatitis, Hx Irritable Bowel, Hx Ulcer Musculoskeletal Medical History: Denies Hx Arthritis, Denies Hx Fibromyalgia, Denies Hx Gout, Denies Hx Multiple Sclerosis, Reports Hx Muscle Spasm - lower back, Denies Hx Musculoskeletal Deformity Psychiatric Medical History: Reports: Hx Anxiety, Hx Bipolar Disorder, Hx Dep ression Denies: Hx Schizophrenia Infectious Medical History: Denies: Hx Hepatitis Past Surgical History: Reports: Hx Appendectomy, Hx Cardiac Catheterization - x3, Hx Cardiac Surgery - stent x 2, Hx Coronary Stent - x2 2007 at [facility] in [place], Hx Hysterectomy, Hx Kidney (Renal Surgery), Hx Orthopedic Surgery - nose. Denies: Hx Pacemaker - Immunizations Immunizations up to date: Yes Hx Diphtheria, Pertussis, Tetanus Vaccination: Yes Hx Pneumococcal Vaccination: 05/10/12 Vertical Provider Document - CONSTITUTIONAL Notes: PHYSICAL EXAMINATION: GENERAL: Well-appearing, well-nourished and in no acute distress. HEAD: Atraumatic, normocephalic. EYES: Pupils equal round extraocular movements intact, conjunctiva are normal. ENT: Nares patent NECK: Normal range of motion LUNGS: No respiratory distress Musculoskeletal: Normal range of motion NEUROLOGICAL: Normal speech, normal gait. PSYCH: Normal mood, normal affect. SKIN: Warm, Dry, normal turgor, no rashes or lesions noted. Superficial area of induration with mild fluctuance noted to right thigh. - INFECTION CONTROL TRAVEL OUTSIDE OF THE [place] IN LAST 30 DAYS: No Course - Re-evaluation Re-evalutation: Abscess to right thigh incised and drained, small amount of drainage obtained. Patient will be placed on antibiotics. - Vital Signs Vital signs: Temp Pulse Resp BP Pulse Ox 97.7 F 81 14 103/65 98 04/23/18 10:39 04/23/18 10:39 04/23/18 10:39 04/23/18 10:39 04/23/18 10:39 Procedures - Incision and Drainage Right thigh Type: Simple Anesthetic type: 1% Lidocaine Blade size: 11 I&D procedure: Shurclens applied Incision Method: Incision made by scalpel Discharge - Discharge Clinical Impression: Abscess Condition: Stable Disposition: HOME, SELF-CARE Additional Instructions: ABSCESS: You have an abscess (boil). This a pus-forming infection, usually due to staph. Some boils may be left to drain on their own, but most require lancing. From the time the tender lump first appears, it may be three or four days before the abscess is ready to eve. Local heat and rest help at this stage of treatment. An antibiotic may prevent spread of the infection. Once the abscess is opened, packing may be placed into it. This is done so pus is not sealed inside by premature closure of the cavity. The packing will be removed at your follow-up visit or you may be advised to remove it yourself at home. Sometimes this packing must be replaced a few times during healing. The wound will heal with surprisingly little scar. Depending on the size and location of an abscess, healing can take one to four weeks. You may shower and wash the area around the incision site two or three times a day. Antibiotics may be prescribed, but are usually not necessary after an abscess has been drained. If you develop fever, chills, worsening pain, or increasing swelling in the area, call the doctor or return immediately. POST INCISION AND DRAINAGE: You have had an incision made to allow drainage of an abscess. The incision must remain open so that pus and debris can drain from the wound. If the abscess cavity is large, packing is placed. This keeps the tissues from collapsing and trapping pus inside, while the body shrinks the cavity. The packing may need to be replaced every day or two. The physician will instruct you on the packing. Keep a bulky dressing over the area. Replace it if it becomes saturated with blood or pus. Do not disturb the packing (if present). You may shower and cleanse the area with gentle soap and warm water two or three times a day. Local warmth may be soothing, and may promote faster healing. Return if you develop high fever or chills, or if you note spreading redness, increasing swelling, or increasing tenderness. MRSA CELLULITIS: You have an infection of your skin and underlying soft tissues called cellulitis. This is due to bacteria, which can enter through any break in the skin, or even through an irritated hair follicle. Untreated, cellulitis will usually worsen and may form an abscess which requires draining. Although many bacterial organisms can cause cellulitis and abscess formations, the most likely bacteria is Methicillin-Resistant Staph Aureus, or MRSA for short. Antibiotics are required. Usually, warm packs or warm soaks, and elevation of the infected area are recommended. You should start getting better within 24 to 36 hours. Most infections respond quickly to the right medication. Follow-up care is important, however, to check for abscess (boil) formation, unsuspected foreign body, or resistant infection. If you develop fever, chills, or if the area of infection is becoming rapidly more swollen or painful, call the doctor at once. CEPHALEXIN: The antibiotic you've been prescribed is a member of the cephalosporin class. This type of antibiotic covers a wide variety of infections, including those of the skin, lungs, and urinary tract. It's useful for staph infections. This antibiotic is slightly similar to the penicillin family. In rare cases, a person who is allergic to penicillin will also be allergic to this medication. If you have had a severe allergic reaction to penicillin, and have not taken this antibiotic since that time, notify your doctor. Antibiotics which cover many germs ("broad spectrum" antibiotics) are more likely to cause diarrhea or "yeast" infections. Women prone to vaginal yeast problems may suffer an attack after taking this antibiotic. In infants, oral thrush (white spots "stuck" on the cheek) or yeast diaper rash may result. See your doctor if these problems occur. Call at once if you develop itching, hives, shortness of breath, or lightheadedness. TRIMETHOPRIM-SULFA: You have been given a prescription for trimethoprim-sulfa (TMS, Septra, Bactrim). This is a combination antibiotic of the sulfa class, often used for urinary tract infections, middle ear infections, bronchitis, shigella intestinal infection, and Pneumocystis pneumonia. TMS is usually well-tolerated. Occasional side effects include nausea and decreased appetite. Septra is not recommended for infants less than two months of age. Do not take this medication if you have experienced severe side effects or allergy to sulfa medicine. You should stop this medicine at once and contact your physician if you develop any rash, joint pain, shortness of breath, bruising, or jaundice (yellow color in the skin), or if you develop any other new or unusual symptoms. FOLLOW-UP CARE: Most simple abscesses will not require a follow up visit. If you had packing placed in the abscess, remove it as instructed by the physician. If you have been referred to a physician for follow-up care, call the physicians office for an appointment as you were instructed or within the next two days. If you experience worsening or a significant change in your symptoms, return to the Emergency Department at any time for re-evaluation. Please apply warm compresses to the area at least 3-4 times daily. Take all antibiotics as prescribed. Follow-up with your primary care provider in 3-5 days return if worsening. Prescriptions: Cephalexin [Cephalexin 500 MG Tablet] 500 mg PO TID #21 tablet Sulfamethoxazole/Trimethoprim [Bactrim Ds Tablet] 1 tab PO BID #20 tablet Referrals: MIREYA BRUMFIELD PA-C [Primary Care Provider] - Follow up as needed
== END 2018-04-23 11:54 | disposition home or self-care (01) ==
LOC: ER 10:34
PROC: 0H9HXZZ Drainage of Right Upper Leg Skin, External Approach (ICD-10-PCS; principal; 2018-04-23)
DX: L02.415 Cutaneous abscess of right lower limb (principal); Z86.14 Personal history of Methicillin resistant Staphylococcus aureus infection; F17.200 Nicotine dependence, unspecified, uncomplicated; I25.10 Atherosclerotic heart disease of native coronary artery without angina pectoris; J44.9 Chronic obstructive pulmonary disease, unspecified
CPT/HCPCS: 99282

== ENCOUNTER 2018-05-31 11:37 | Emergency (ER) | payer MEDICAID ==
[2018-05-31 11:45] VITALS: BP 121/66
[2018-05-31] MEDS ORDERED: LIDOCAINE 2% VISCOUS SOLN 20 ML UDCUP PO ONE (11:50)
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
== END 2018-05-31 12:01 | disposition home or self-care (01) ==
LOC: ER 11:37
DX: T28.0XXA Burn of mouth and pharynx, initial encounter (principal); H92.02 Otalgia, left ear; X10.1XXA Contact with hot food, initial encounter; I50.9 Heart failure, unspecified; I25.10 Atherosclerotic heart disease of native coronary artery without angina pectoris; E78.00 Pure hypercholesterolemia, unspecified; Z87.442 Personal history of urinary calculi; Z90.710 Acquired absence of both cervix and uterus; I25.2 Old myocardial infarction
CPT/HCPCS: 99282; J3490

== ENCOUNTER 2018-06-02 09:53 | Emergency (ER) | payer MEDICAID ==
[2018-06-02 10:00] VITALS: BP 130/69
[2018-06-02] MEDS ORDERED: LIDOCAINE 2% VISCOUS SOLN 20 ML UDCUP PO ONE (10:30)
--- NOTE | 2018-06-02 10:37 | ER Document Report ---
HPI - HPI Time Seen by Provider: 06/02/18 10:17 Pain Level: 4 Context: Patient is a 52-year-old female who presents the emergency department with a chief complaint of a burn to the roof of her mouth and is here for a recheck. She also has a burn to her uvula. She states that she has had some difficulty swallowing because of the pain. She has been taking Motrin and Tylenol, but states that it has not helped. When she was here in the emergency department 2 days ago, she received lidocaine, but only received 1 dose of it. She has a past medical history of CHF and COPD. - CONSTITUTIONAL Constitutional: DENIES: Fever, Chills - EENT EENT: REPORTS: Sore Throat. DENIES: Nasal Drainage-Clear - NEURO Neurology: DENIES: Headache - CARDIOVASCULAR Cardiovascular: DENIES: Chest pain - RESPIRATORY Respiratory: DENIES: Trouble Breathing, Coughing - GASTROINTESTINAL Gastrointestinal: DENIES: Abdominal Pain, Nausea, Patient vomiting, Diarrhea - REPRODUCTIVE Reproductive: DENIES: : - MUSCULOSKELETAL Musculoskeletal: DENIES: Extremity pain - DERM Skin Color: Normal Skin Problems: None Past Medical History - General Information source: Patient - Social History Smoking Status: Former Smoker Family History: Reviewed & Not Pertinent - Past Medical History Cardiac Medical History: Reports: Hx Congestive Heart Failure, Hx Coronary Artery Disease, Hx Heart Attack, Hx Hypercholesterolemia Denies: Hx Hypertension Pulmonary Medical History: Reports: Hx Asthma, Hx Bronchitis, Hx COPD, Hx Pn eumonia Denies: Hx Tuberculosis Neurological Medical History: Denies: Hx Cerebrovascular Accident, Hx Seizures Renal/ Medical History: Reports: Hx Kidney Stones. Denies: Hx End Stage Renal Disease, Hx Peritoneal Dialysis GI Medical History: Reports: Hx Gastroesophageal Reflux Disease. Denies: Hx Cirrhosis, Hx Gastritis, Hx Hepatitis, Hx Irritable Bowel, Hx Ulcer Musculoskeletal Medical History: Denies Hx Arthritis, Denies Hx Fibromyalgia, Denies Hx Gout, Denies Hx Multiple Sclerosis, Reports Hx Muscle Spasm - lower back, Denies Hx Musculoskeletal Deformity Psychiatric Medical History: Reports: Hx Anxiety, Hx Bipolar Disorder, Hx Depression Denies: Hx Schizophrenia Infectious Medical History: Denies: Hx Hepatitis Past Surgical History: Reports: Hx Appendectomy, Hx Cardiac Catheterization - x3, Hx Cardiac Surgery - stent x 2, Hx Coronary Stent - x2 2007 at [facility] in [place], Hx Hysterectomy, Hx Kidney (Renal Surgery), Hx Orthopedic Surgery - nose. Denies: Hx Pacemaker - Immunizations Immunizations up to date: Yes Hx Diphtheria, Pertussis, Tetanus Vaccination: Yes Hx Pneumococcal Vaccination: 05/10/12 Vertical Provider Document - CONSTITUTIONAL Agree With Documented VS: Yes Exam Limitations: No Limitations - INFECTION CONTROL TRAVEL OUTSIDE OF THE [place]. IN LAST 30 DAYS: No - HEENT HEENT: Atraumatic, Normocephalic Mouth Diagram: 1 - Burn noted 2 - Burn noted - NECK Neck: Normal Inspection, Supple - RESPIRATORY Respiratory: Breath Sounds Normal, No Respiratory Distress - MUSCULOSKELETAL/EXTREMETIES Musculoskeletal/Extremeties: FROM - NEURO Level of Consciousness: Awake, Alert, Appropriate Motor/Sensory: No Motor Deficit, No Sensory Deficit - DERM Integumentary: Warm, Dry Course - Re-evaluation Re-evalutation: 06/02/18 I have discussed this case with Dr. Mullen. He agrees to start the patient on Keflex and oral lidocaine. I have discussed this with the patient. I do not suspect she has any airway compromise at this time. Her airway is nice and patent. I have instructed her to take the lidocaine before meals and to stick to a soft diet. Verbal discharge instructions were given to the patient. They verbalized understanding. They are stable for discharge. - Vital Signs Vital signs: Temp Pulse Resp BP Pulse Ox 98.0 F 63 15 130/69 H 97 06/02/18 09:58 06/02/18 09:58 06/02/18 09:58 06/02/18 09:58 06/02/18 09:58 Discharge - Discharge Clinical Impression: Burn of mouth Qualifiers: Encounter type: subsequent encounter Qualified Code(s): T28.0XXD - Burn of mouth and pharynx, subsequent encounter Condition: Stable Disposition: HOME, SELF-CARE Additional Instructions: You were seen today in the emergency department for a burn to your mouth. You have been given antibiotics to help with your burn. Please stick to eating soft foods such as applesauce, pudding, or Jell-O. Please continue taking ibuprofen and Tylenol to help with your pain. You have been given lidocaine to swish in your mouth. Please use this before you eat. Swish 5 mL's in your mouth so you are able to tolerate eating and drinking. Please follow-up with your primary care provider and ENT on Monday. If you develop difficulty breathing, shortness of breath, or worsening symptoms, please return to the emergency department. Prescriptions: Cephalexin Monohydrate [Keflex 250 mg/5 ml Susp] 500 mg PO BID 7 Days #1400 ml Lidocaine HCl [Xylocaine 2% Viscous Soln 20 ml Udcup] 15 ml PO TID PRN #[id number] PRN Reason: Referrals: MIREYA BRUMFIELD PA-C [Primary Care Provider] - 06/04/18 MIREYA HENDRICKSON DO [ASSOCIATE] - 06/04/18
== END 2018-06-02 10:54 | disposition home or self-care (01) ==
LOC: ER 09:53
DX: T28.0XXA Burn of mouth and pharynx, initial encounter (principal); X10.1XXA Contact with hot food, initial encounter; I25.10 Atherosclerotic heart disease of native coronary artery without angina pectoris; J44.9 Chronic obstructive pulmonary disease, unspecified; Z87.891 Personal history of nicotine dependence
CPT/HCPCS: 99282; J3490

== ENCOUNTER 2018-11-04 12:56 | Emergency (ER) | payer MEDICAID ==
[2018-11-04 13:05] VITALS: BP 103/71
[2018-11-04] MEDS ORDERED: IPRATROPIUM/ALBUTEROL 0.5-2.5 MG/3 ML AMPUL NEB ONE (15:00)
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
[2018-11-04] MEDS ORDERED: FENTANYL CITRATE INJ/PF 100 MCG/2 ML AMPUL IV ONE (15:18)
[2018-11-04 15:44] LABS: ABSOLUTE EOSINOPHILS # (AUTO) 0.3 10^3/uL (0.0-0.6); ABSOLUTE LYMPHOCYTES (AUTO) 1.5 10^3/uL (0.5-4.7); ABSOLUTE MONOCYTES (AUTO) 0.4 10^3/uL (0.1-1.4); BASOPHILS % (AUTO) 0.9 % (0-2); EOSINOPHILS % (AUTO) 6.2 % (0-6); HEMATOCRIT 40.3 % (36.0-47.0); HEMOGLOBIN 13.6 g/dL (12.0-15.5); LYMPHOCYTES % (AUTO) 36.6 % (13-45); MEAN CORPUSCULAR HEMOGLOBIN 30.6 pg (27.0-33.4); MEAN CORPUSCULAR HGB CONC 33.7 g/dL (32.0-36.0); MEAN CORPUSCULAR VOLUME 91 fl (80-97); MONOCYTES % (AUTO) 8.4 % (3-13); PLATELET COUNT 247 10^3/uL (150-450); RED BLOOD COUNT 4.44 10^6/uL (3.72-5.28); RED CELL DISTRIBUTION WIDTH 12.6 % (11.5-14.0); SEGMENTED NEUTROPHILS % (AUTO) 47.9 % (42-78); TOTAL CELLS COUNTED % (AUTO) 100 %; WHITE BLOOD COUNT 4.2 10^3/uL (4.0-10.5)
--- NOTE | 2018-11-04 15:49 | RADIOLOGY REPORT (SQ) ---
EXAM DESCRIPTION: CHEST SINGLE VIEW COMPLETED DATE/TIME: 11/04/2018 3:15 pm REASON FOR STUDY: wheezing COMPARISON: 07/30/2018 TECHNIQUE: Single frontal radiographic view of the chest acquired. NUMBER OF VIEWS: One view. LIMITATIONS: None. FINDINGS: LUNGS AND PLEURA: No pneumothorax. No consolidation or pleural effusion. MEDIASTINUM AND HILAR STRUCTURES: Stable. HEART AND VASCULAR STRUCTURES: Stable. BONES: No acute findings. HARDWARE: None in the chest. OTHER: No other significant finding. IMPRESSION: NO ACUTE FINDINGS. TECHNICAL DOCUMENTATION: JOB ID: [id number] [place]-72 2010 [employer]- All Rights Reserved Reading location - IP/workstation name: [employer]
[2018-11-04 15:57] LABS: ALBUMIN 4.1 g/dL (3.5-5.0); ALKALINE PHOSPHATASE 51 U/L (38-126); ANION GAP 6 (5-19); ASPARTATE AMINO TRANSFERASE 21 U/L (14-36); BILIRUBIN,DIRECT 0.2 mg/dL (0.0-0.4); BILIRUBIN,TOTAL 0.5 mg/dL (0.2-1.3); BLOOD UREA NITROGEN 11 mg/dL (7-20); CALCIUM 9.7 mg/dL (8.4-10.2); CARBON DIOXIDE 32 mmol/L (22-30); CHLORIDE 103 mmol/L (98-107); GLUCOSE 145 mg/dL (75-110); TOTAL PROTEIN 6.8 g/dL (6.3-8.2)
== END 2018-11-04 16:07 | disposition left against medical advice (07) ==
LOC: ER 12:56
DX: R42 Dizziness and giddiness (principal); S01.91XA Laceration without foreign body of unspecified part of head, initial encounter; W22.8XXA Striking against or struck by other objects, initial encounter; I50.9 Heart failure, unspecified; I25.10 Atherosclerotic heart disease of native coronary artery without angina pectoris; J44.9 Chronic obstructive pulmonary disease, unspecified
CPT/HCPCS: 94640; 99281; 96374; 36415; 85025; 80053; 71045; J3010; J7620

== ENCOUNTER 2018-11-08 14:57 | Emergency (ER) | payer MEDICAID ==
[2018-11-08 15:16] VITALS: BP 109/60
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
== END 2018-11-08 15:59 | disposition home or self-care (01) ==
LOC: ER 14:57
DX: S01.91XD Laceration without foreign body of unspecified part of head, subsequent encounter (principal); W22.8XXA Striking against or struck by other objects, initial encounter; Y92.029 Unspecified place in mobile home as the place of occurrence of the external cause; F17.210 Nicotine dependence, cigarettes, uncomplicated; I50.9 Heart failure, unspecified; I25.10 Atherosclerotic heart disease of native coronary artery without angina pectoris; J44.9 Chronic obstructive pulmonary disease, unspecified

== ENCOUNTER 2018-12-03 21:44 | Emergency (ER) | payer MEDICAID ==
[2018-12-03] MEDS ORDERED: ONDANSETRON HCL INJ/PF 4 MG/2 ML SDV IV ONE (22:02)
[2018-12-03] MEDS ORDERED: KETOROLAC TROMETHAMINE INJ/PF 30 MG/1 ML SDV IV ONE (22:02)
[2018-12-03] MEDS ORDERED: MORPHINE SULFATE 10 MG/ML INJ IV ONE (22:02)
[2018-12-03 22:35] LABS: ABSOLUTE BASOPHILS # (AUTO) 0.1 10^3/uL (0.0-0.2); ABSOLUTE EOSINOPHILS # (AUTO) 0.3 10^3/uL (0.0-0.6); ABSOLUTE LYMPHOCYTES (AUTO) 3.2 10^3/uL (0.5-4.7); ABSOLUTE MONOCYTES (AUTO) 0.5 10^3/uL (0.1-1.4); ABSOLUTE NEUT (AUTO) 2.8 10^3/uL (1.7-8.2); BASOPHILS % (AUTO) 0.9 % (0-2); EOSINOPHILS % (AUTO) 4.9 % (0-6); HEMATOCRIT 40.9 % (36.0-47.0); LYMPHOCYTES % (AUTO) 46.4 % (13-45); MEAN CORPUSCULAR HEMOGLOBIN 30.7 pg (27.0-33.4); MEAN CORPUSCULAR HGB CONC 34.2 g/dL (32.0-36.0); MEAN CORPUSCULAR VOLUME 90 fl (80-97); PLATELET COUNT 231 10^3/uL (150-450); RED BLOOD COUNT 4.56 10^6/uL (3.72-5.28); RED CELL DISTRIBUTION WIDTH 12.9 % (11.5-14.0); SEGMENTED NEUTROPHILS % (AUTO) 40.8 % (42-78); TOTAL CELLS COUNTED % (AUTO) 100 %; WHITE BLOOD COUNT 6.9 10^3/uL (4.0-10.5)
[2018-12-03 22:50] LABS: ALBUMIN 4.3 g/dL (3.5-5.0); ALKALINE PHOSPHATASE 63 U/L (38-126); ANION GAP 9 (5-19); ASPARTATE AMINO TRANSFERASE 23 U/L (14-36); BILIRUBIN,DIRECT 0.1 mg/dL (0.0-0.4); BILIRUBIN,TOTAL 0.1 mg/dL (0.2-1.3); BLOOD UREA NITROGEN 17 mg/dL (7-20); CARBON DIOXIDE 28 mmol/L (22-30); CHLORIDE 101 mmol/L (98-107); GLUCOSE 111 mg/dL (75-110); POTASSIUM 4.2 mmol/L (3.6-5.0); TOTAL PROTEIN 7.1 g/dL (6.3-8.2)
--- NOTE | 2018-12-03 23:05 | RADIOLOGY REPORT (SQ) ---
EXAM DESCRIPTION: CT HEAD WITHOUT IV CONTRAST COMPLETED DATE/TME: 12/03/2018 22:02 CLINICAL HISTORY: 53 years, Female, ams COMPARISON: 11/03/2018 CT TECHNIQUE: 183 Images stored on PACS. All CT scanners at this facility use dose modulation, iterative reconstruction, and/or weight based dosing when appropriate to reduce radiation dose to as low as reasonably achievable (ALARA). [facility]: Dose Right [facility]: CareDose [facility]: Dose Right [facility]: Teradose 4D [facility]: [employer] LIMITATIONS: None. FINDINGS: The globes are intact. The paranasal sinuses and mastoid air cells are unremarkable. No displaced or depressed skull fracture. No intra or extra-axial hemorrhage. CT is limited for evaluation of acute infarct. No CT evidence for large or territorial acute infarct. No mass or midline shift IMPRESSION: Unremarkable exam TECHNICAL DOCUMENTATION: Quality ID # [id number]: Final reports with documentation of one or more dose reduction techniques (e.g., Automated exposure control, adjustment of the mA and/or kV according to patient size, use of iterative reconstruction technique) copyright 2011 [employer]- All Rights Reserved
--- NOTE | 2018-12-03 23:16 | ER Document Report ---
ED General - General Chief Complaint: Head Injury Stated Complaint: HEAD INJURY Time Seen by Provider: 12/03/18 21:58 Primary Care Provider: MIREYA BRUMFIELD PA-C [Primary Care Provider] - Follow up as needed TRAVEL OUTSIDE OF THE [place] IN LAST 30 DAYS: No - HPI Notes: Patient states approximate 1 month ago she had a head injury and was seen in the emergency department. At that time she had jolie placed. The jolie have subsequently been removed. However she states she continues to have headaches with trouble concentrating and dizziness. She was having a headache tonight so she came the emergency department. She states the headache is a pressure or throbbing sensation. It is severe. It is diffuse about her head. It does radiate across the head. It is worse with movement and better with rest. She denies any numbness or abnormal sensations. She has no problem moving her arms or legs. - Related Data Allergies/Adverse Reactions: No Known Allergies Allergy (Verified 11/08/18 14:58) Past Medical History - General Information source: Patient - Social History Smoking Status: Current Every Day Smoker Frequency of alcohol use: None Drug Abuse: None Family History: Reviewed & Not Pertinent Patient has suicidal ideation: No Patient has homicidal ideation: No - Past Medical History Cardiac Medical History: Reports: Hx Congestive Heart Failure, Hx Coronary Artery Disease, Hx Heart Attack, Hx Hypercholesterolemia Denies: Hx Hypertension Pulmonary Medical History: Reports: Hx Asthma, Hx Bronchitis, Hx COPD, Hx Pneumo bernadine Denies: Hx Tuberculosis Neurological Medical History: Denies: Hx Cerebrovascular Accident, Hx Seizures Renal/ Medical History: Reports: Hx Kidney Stones. Denies: Hx End Stage Renal Disease, Hx Peritoneal Dialysis GI Medical History: Reports: Hx Gastroesophageal Reflux Disease. Denies: Hx Cirrhosis, Hx Gastritis, Hx Hepatitis, Hx Irritable Bowel, Hx Ulcer Musculoskeletal Medical History: Denies Hx Arthritis, Denies Hx Fibromyalgia, Denies Hx Gout, Denies Hx Multiple Sclerosis, Reports Hx Muscle Spasm - lower back, Denies Hx Musculoskeletal Deformity Psychiatric Medical History: Reports: Hx Anxiety, Hx Bipolar Disorder, Hx Depression Denies: Hx Schizophrenia Infectious Medical History: Denies: Hx Hepatitis Past Surgical History: Reports: Hx Appendectomy, Hx Cardiac Catheterization - x3, Hx Cardiac Surgery - stent x1, Hx Coronary Stent - x2 2007 at [facility] in [place], Hx Hysterectomy, Hx Kidney (Renal Surgery), Hx Orthopedic Surgery - nose. Denies: Hx Pacemaker - Immunizations Immunizations up to date: Yes Hx Diphtheria, Pertussis, Tetanus Vaccination: Yes Hx Pneumococcal Vaccination: 05/10/12 Review of Systems - Review of Systems Constitutional: denies: Chills, Fever Cardiovascular: denies: Chest pain, Palpitations Respiratory: denies: Cough, Short of breath Gastrointestinal: denies: Abdominal pain, Diarrhea -: Yes All other systems reviewed and negative Physical Exam - Vital signs Vitals: Temp Pulse Resp BP Pulse Ox 97.6 F 71 22 H 117/76 95 12/03/18 21:51 12/03/18 21:51 12/03/18 21:51 12/03/18 21:51 12/03/18 21:51 Interpretation: Normal - General General appearance: Appears well, Alert - HEENT Head: Normocephalic, Atraumatic Eyes: Normal Pupils: PERRL - Respiratory Respiratory status: No respiratory distress Chest status: Nontender Breath sounds: Normal Chest palpation: Normal - Cardiovascular Rhythm: Regular Heart sounds: Normal auscultation Murmur: No - Abdominal Inspection: Normal Distension: No distension Bowel sounds: Normal Tenderness: Nontender Organomegaly: No organomegaly - Back Back: Normal, Nontender - Extremities General upper extremity: Normal inspection, Nontender, Normal color, Normal ROM, Normal temperature General lower extremity: Normal inspection, Nontender, Normal color, Normal ROM, Normal temperature, Normal weight bearing. 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 She is sitting up in bed talking with her family. She states she does feel better. Work-up was unremarkable. Patient's presentation seems most consistent with a postconcussive syndrome. - Vital Signs Vital signs: Temp Pulse Resp BP Pulse Ox 97.6 F 71 22 H 117/76 95 12/03/18 21:51 12/03/18 21:51 12/03/18 21:51 12/03/18 21:51 12/03/18 21:51 - Laboratory Result Diagrams: 12/03/18 22:24 12/03/18 22:24 Laboratory results interpreted by me: 12/03/18 12/03/18 22:24 22:24 Lymph % (Auto) 46.4 H Seg Neutrophils % 40.8 L Est GFR (MDRD) Non-Af 59 L Glucose 111 H Total Bilirubin 0.1 L - Diagnostic Test Radiology reviewed: Image reviewed, Reports reviewed Discharge - Discharge Clinical Impression: Postconcussive syndrome Condition: Stable Disposition: HOME, SELF-CARE Instructions: Post-Concussion Syndrome ([facility]) Additional Instructions: Please call your family doctor first thing in the morning and discuss evaluation for postconcussive syndrome Prescriptions: Tramadol HCl [Ultram 50 mg Tablet] 50 mg PO Q4HP PRN 3 Days #12 tab PRN Reason: Referrals: MIREYA BRUMFIELD PA-C [Primary Care Provider] - Follow up tomorrow
[2018-12-04 00:07] VITALS: BP 95/83
== END 2018-12-04 00:09 | disposition home or self-care (01) ==
LOC: ER 21:44
DX: F07.81 Postconcussional syndrome (principal); R51 Headache; R42 Dizziness and giddiness; X58.XXXD Exposure to other specified factors, subsequent encounter; F17.200 Nicotine dependence, unspecified, uncomplicated; I50.9 Heart failure, unspecified; I25.10 Atherosclerotic heart disease of native coronary artery without angina pectoris; J44.9 Chronic obstructive pulmonary disease, unspecified
CPT/HCPCS: 99284; 96374; 96375; 36415; 85025; 80053; 70450; J1885; J2270; J2405

== ENCOUNTER 2018-12-17 10:34 | Emergency (ER) | payer MEDICAID ==
[2018-12-17 10:41] VITALS: BP 103/64
[2018-12-17] MEDS ORDERED: LIDOCAINE 1% INJ-PF (10 MG/ML) 30 ML SDV INJ ONE (10:45)
--- NOTE | 2018-12-17 10:50 | ER Document Report ---
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 Patient states that the pain and redness have been there for the last several days. Pain does not radiate. She is able to eat and drink without difficulty. Denies drug allergies. Denies any headache, fever, URI, sore throat, chest pain, palpitations, syncope, cough, shortness of breath, wheeze, dyspnea, abdominal pain, nausea/vomiting/diarrhea, urinary retention, dysuria, hematuria. - ROS Systems Reviewed and Negative: Yes All other systems reviewed and negative - REPRODUCTIVE Reproductive: DENIES: : Past Medical History - Social History Smoking Status: Current Every Day Smoker Family History: Reviewed & Not Pertinent - Past Medical History Cardiac Medical History: Reports: Hx Congestive Heart Failure, Hx Coronary Artery Disease, Hx Heart Attack, Hx Hypercholesterolemia Denies: Hx Hypertension Pulmonary Medical History: Reports: Hx Asthma, Hx Bronchitis, Hx COPD, Hx Pneumonia Denies: Hx Tuberculosis Neurological Medical History: Denies: Hx Cerebrovascular Accident, Hx Seizures Renal/ Medical History: Reports: Hx Kidney Stones. Denies: Hx End Stage Renal Disease, Hx Peritoneal Dialysis GI Medical History: Reports: Hx Gastroesophageal Reflux Disease. Denies: Hx Cirrhosis, Hx Gastritis, Hx Hepatitis, Hx Irritable Bowel, Hx Ulcer Musculoskeletal Medical History: Denies Hx Arthritis, Denies Hx Fibromyalgia, Denies Hx Gout, Denies Hx Multiple Sclerosis, Reports Hx Muscle Spasm - lower back, Denies Hx Musculoskeletal Deformity Psychiatric Medical History: Reports: Hx Anxiety, Hx Bipolar Disorder, Hx Depression Denies: Hx Schizophrenia Infectious Medical History: Denies: Hx Hepatitis Past Surgical History: Reports: Hx Appendectomy, Hx Cardiac Catheterization - x3, Hx Cardiac Surgery - stent x1, Hx Coronary Stent - x2 2007 at [facility] in [place], Hx Hysterectomy, Hx Kidney (Renal Surgery), Hx Orthopedic Surgery - nose. Denies: Hx Pacemaker - Immunizations Immunizations up to date: Yes Hx Diphtheria, Pertussis, Tetanus Vaccination: Yes Hx Pneumococcal Vaccination: 05/10/12 Vertical Provider Document - CONSTITUTIONAL Agree With Documented VS: Yes Notes: PHYSICAL EXAMINATION: GENERAL: Well-appearing, well-nourished and in no acute distress. LUNGS: Breath sounds clear to auscultation bilaterally and equal. No wheezes rales or rhonchi. HEART: Regular rate and rhythm without murmurs, rubs, gallops. Musculoskeletal: FROM to passive/active. Strength 5+/5. Extremities: No cyanosis, clubbing, or edema b/l. Peripheral pulses 2+. Capillary refill less than 3 seconds. NEUROLOGICAL: Normal speech, normal gait. Normal sensory, motor exams PSYCH: Normal mood, normal affect. SKIN: There is a 1.5cm fluctuant abscess in the left axilla without streaks noted. There is another 1 cm lateral abscess to the right axilla without any significant streaking. Tenderness to both. - INFECTION CONTROL TRAVEL OUTSIDE OF THE [place] IN LAST 30 DAYS: No Course - Re-evaluation Re-evalutation: 12/17/18 Patient is an afebrile, well-hydrated, 53-year-old female who presents to the emergency department with an abscess to her right and left axilla needing incision and drainage. Vitals are acceptable without significant tachycardia, tachypnea, or hypoxia. PE is otherwise unremarkable. Patient is nontoxic- appearing and is tolerating p.o. without difficulty. Incision and drainage was performed successfully without any complications and packing was placed. Wound dressing was placed and wound instructions reviewed. Wound culture was obtained. No further labs or imaging warranted. Low suspicion for any sepsis, meningitis, SJS, or other systemic emergent condition at this time. Patient to monitor symptoms for any acute changes and seek medical attention if so. Recheck with your PCM in 2-3 days. Consider consult with the general surgeon. Return to the ED with any worsening/concerning symptoms as reviewed. Patient is in agreement. - Vital Signs Vital signs: Temp Pulse Resp BP Pulse Ox 97.7 F 65 18 103/64 99 12/17/18 10:40 12/17/18 10:40 12/17/18 10:40 12/17/18 10:40 12/17/18 10:40 Procedures - Incision and Drainage Left axilla Type: Simple Anesthetic type: 1% Lidocaine mL's of anesthetic: 3 Blade size: 11 I&D procedure: Iodoform packing placed, Other - Chlorhexidine/saline Incision Method: Incision made by scalpel Amount/type of drainage: Moderate purulent Rt axilla Type: Simple Anesthetic type: 1% Lidocaine mL's of anesthetic: 2 Blade size: 11 I&D procedure: Iodoform packing placed, Sterile dressing applied, Other - Chlorhexidine/saline Incision Method: Incision made by scalpel Amount/type of drainage: Moderate purulent Discharge - Discharge Clinical Impression: Abscess Condition: Stable Disposition: HOME, SELF-CARE Instructions: Cephalexin ([facility]), Trimethoprim-Sulfa ([facility]), Abscess ([facility]), Post Incision and Drainage Additional Instructions: Do not shower or bathe for 24 hours. After 24 hours you may shower but no submersion of the wound under water. Keep the original dressing on the wound for 24 hours unless the drainage soaks through. Change the dressing daily thereafter and use a small amount of triple antibiotic ointment over the open wound. See your PCM in 2-3 days for recheck and continue direction for wound packing. Monitor for any signs of worsening pain or redness, streaks, and/or fever. Return to the ED if noticing any of the above symptoms or as needed. Take medications as directed. Prescriptions: Sulfamethoxazole/Trimethoprim [Bactrim Ds Tablet] 1 each PO BID #20 tablet Cephalexin Monohydrate [Keflex 500 mg Capsule] 500 mg PO TID #30 capsule Forms: Smoking Cessation Education Referrals: MIREYA BRUMFIELD PA-C [Primary Care Provider] - Follow up as needed PETE TYSON MD [ACTIVE STAFF] - Follow up as needed
== END 2018-12-17 11:45 | disposition home or self-care (01) ==
LOC: ER 10:34
DX: L02.412 Cutaneous abscess of left axilla (principal); L02.411 Cutaneous abscess of right axilla; F17.200 Nicotine dependence, unspecified, uncomplicated; I50.9 Heart failure, unspecified; I25.10 Atherosclerotic heart disease of native coronary artery without angina pectoris; E78.00 Pure hypercholesterolemia, unspecified; J44.9 Chronic obstructive pulmonary disease, unspecified; Z87.442 Personal history of urinary calculi; I25.2 Old myocardial infarction; Z90.710 Acquired absence of both cervix and uterus
CPT/HCPCS: 87070; 87205; 87075; 87077; 10061; A6266; J3490; 87186; 99283

== ENCOUNTER 2019-01-25 07:59 | Day surgery (SDC) | payer MEDICAID ==
[2019-01-22 10:53] LABS: HEMOGLOBIN 13.7 g/dL (12.0-15.5); MEAN CORPUSCULAR HEMOGLOBIN 30.2 pg (27.0-33.4); MEAN CORPUSCULAR HGB CONC 33.4 g/dL (32.0-36.0); MEAN CORPUSCULAR VOLUME 91 fl (80-97); PLATELET COUNT 256 10^3/uL (150-450); RED BLOOD COUNT 4.53 10^6/uL (3.72-5.28); RED CELL DISTRIBUTION WIDTH 12.9 % (11.5-14.0); WHITE BLOOD COUNT 5.1 10^3/uL (4.0-10.5)
[2019-01-22 11:14] LABS: ANION GAP 13 (5-19); BLOOD UREA NITROGEN 17 mg/dL (7-20); CALCIUM 9.9 mg/dL (8.4-10.2); CARBON DIOXIDE 25 mmol/L (22-30); CHLORIDE 102 mmol/L (98-107); GLUCOSE 129 mg/dL (75-110)
--- NOTE | 2019-01-22 12:01 | RADIOLOGY REPORT (SQ) ---
EXAM DESCRIPTION: CHEST PA/LATERAL COMPLETED DATE/TIME: 01/22/2019 11:01 am REASON FOR STUDY: PRE=OP COMPARISON: 11/04/2018 EXAM PARAMETERS: NUMBER OF VIEWS: two views TECHNIQUE: Digital Frontal and Lateral radiographic views of the chest acquired. RADIATION DOSE: NA LIMITATIONS: none FINDINGS: LUNGS AND PLEURA: Hyperinflation of the lungs and flattening of the diaphragms, findings suggest COPD. No opacities, masses or pneumothorax. No pleural effusion. MEDIASTINUM AND HILAR STRUCTURES: No masses or contour abnormalities. HEART AND VASCULAR STRUCTURES: Heart normal size. No evidence for failure. BONES: No acute findings. HARDWARE: None in the chest. OTHER: No other significant finding. IMPRESSION: 1. No significant interval changes since the prior examination dated 11/04/2018. Finding s of COPD suggested. No acute findings. TECHNICAL DOCUMENTATION: JOB ID: [id number] [employer]- All Rights Reserved Reading location - IP/workstation name: [email or web address]
--- NOTE | 2019-01-22 23:50 | EKG REPORT ---
SEVERITY:- ABNORMAL ECG - SINUS RHYTHM LEFT ANTERIOR FASCICULAR BLOCK LOW VOLTAGE IN FRONTAL LEADS NONSPECIFIC T ABNORMALITIES, DIFFUSE LEADS : Confirmed by: Kristine Colindres MD 22-Jan-2019 23:49:38
[~2019-01-25 07:59] MED LIST: ACETAMINOPHEN 325 MG TABLET PO PRN; DEXAMETHASONE SOD PHOSPHATE INJ 4 MG/1 ML VIAL ONE; FENTANYL CITRATE INJ/PF 100 MCG/2 ML AMPUL ONE; IBUPROFEN 800 MG in NORMAL SALINE 250 ML IV PRN; LACTATED RINGERS 1000 ML IV PRN; LIDOCAINE 0.5% INJ-PF (5 MG/ML) 50 ML SDV SUBCUT PRN; MIDAZOLAM 2 MG/2 ML INJ ONE; ONDANSETRON HCL INJ/PF 4 MG/2 ML SDV ONE; PROPOFOL INJ 200 MG/20 ML VIAL IV ONE; VANCOMYCIN HCL 1,000 MG in DEXTROSE 5%-WATER 250 ML IV PRN
[2019-01-25] MEDS ORDERED: ALBUTEROL SULFATE 0.083% NEB 2.5 MG/3 ML AMPUL NEB ONE (08:55)
[2019-01-25] MEDS ORDERED: FAMOTIDINE INJ/PF 20 MG/2 ML SDV IV ONE (09:01)
[2019-01-25] MEDS ORDERED: ACETAMINOPHEN 325 MG TABLET ONE (09:14)
[2019-01-25] MEDS ORDERED: BUPIVACAINE HCL 0.25 % INJ/PF (2.5 MG/1 ML) 30 ML VIAL ONE ×2 (09:54→09:55)
[2019-01-25] MEDS ORDERED: ONDANSETRON HCL INJ/PF 4 MG/2 ML SDV IV PRN (10:41)
[2019-01-25] MEDS ORDERED: MEPERIDINE HCL/PF INJ 25 MG/1 ML DISP.SYRIN IV PRN (10:41)
[2019-01-25] MEDS ORDERED: MORPHINE SULFATE 10 MG/ML INJ IV PRN (10:41)
[2019-01-25] MEDS ORDERED: PROMETHAZINE HCL INJ 25 MG/1 ML VIAL IV PRN ×2 (10:41)
[2019-01-25] MEDS ORDERED: DIPHENHYDRAMINE HCL 50 MG/ML VIAL IV PRN (10:41)
[2019-01-25] MEDS ORDERED: FENTANYL CITRATE INJ/PF 100 MCG/2 ML AMPUL IV PRN ×3 (10:41)
[2019-01-25] MEDS ORDERED: BUPIVACAINE HCL 0.25 % INJ/PF (2.5 MG/1 ML) 30 ML VIAL INJ ONE (11:19)
[2019-01-25] MEDS ORDERED: PROPOFOL INJ 200 MG/20 ML VIAL IV ONE (11:44)
[2019-01-25] MEDS ORDERED: FENTANYL CITRATE INJ/PF 100 MCG/2 ML AMPUL ONE (11:50)
[2019-01-25] MEDS ORDERED: HYDROCODONE/ACETAMINOPHEN 10-325 MG TABLET PO PRN (12:06)
[2019-01-25 16:24] VITALS: BP 125/69
[2019-01-25] MEDS ORDERED: IBUPROFEN 800 MG TABLET PO SCH (17:00)
--- NOTE | 2019-01-28 09:48 | Discharge Summary ---
Discharge Summary ([facility]C) - Discharge Final Diagnosis: Bilateral axillary hidradenitis. Recurrent, refractory to other treatments. Date of Surgery: 01/25/19 Discharge Date: 01/25/19 Condition: Stable Forms: ASU Anesthesia D/C Instruction, Discharge POC-Surgical Service Treatment or Instructions: Diet as tolerated. No strenuous activity. OK to remove bandage and shower on MONDAY. Empty drainage and measure. Referrals: PETE TYSON MD [ACTIVE STAFF] - 02/04/19 8:15 am Discharge Diet: As Tolerated Respiratory Treatments at Home: Deep Breathing/Coughing, Incentive Spirometer Discharge Activity: Balance Activity w/Rest Home Care Assistance: None Needed Report the Following to Your Physician Immediately: Shortness of Breath, Nausea, Vomiting, Increase in Pain, Fever over 101 Degrees, Drainage-Yellow, Drainage- Green, Drainage-Green, Drainage-Foul Smelling
--- NOTE | 2019-01-28 09:54 | Operative Report ---
Nonrecallable Operative Report DATE OF SURGERY: 01/25/19 PREOPERATIVE DIAGNOSIS: Recurrent, symptomatic bilateral axillary hidradenitis. It has previously been resistant to nonsurgical therapies. POSTOPERATIVE DIAGNOSIS: Same as above OPERATION: Excision of bilateral axillary skin for hidradenitis. SURGEON: PETE RECIO INSTRUMENT DESIGNER: RASHIDA LUCIANO ANESTHESIA: Other - Laryngeal mask airway TISSUE REMOVED OR ALTERED: Bilateral axillary skin. COMPLICATIONS: None apparent ESTIMATED BLOOD LOSS: 50 cc PROCEDURE: Drains/implants: 15 Upper Sorbian round Ben drains in bilateral axillae. Procedure in detail: After informed consent was obtained, the patient was brought to the operating room and laid in the supine position. The area of bilateral axillae were prepped and draped in a normal sterile fashion. The axillary skin was marked, to encompass all of the hairbearing skin. The inc ision was then created with a 15 blade scalpel in gustavo fashion, excising all of the hairbearing skin within bilateral axillae. Dissection was carried through the subcutaneous tissue using electrocautery. Skin and a small amount of fatty tissue was excised. The defect was then examined. Closure was more feasible in a longitudinal fashion. Skin flaps were raised superiorly, inferiorly, anteriorly, and posteriorly. Once the skin flaps were raised, 15 Upper Sorbian round Ben drains were placed into the wound beds. They were pulled out through separate stab incisions, and secured to the skin using 2-0 nylon suture. 2-0 Vicryl suture was then used in simple interrupted fashion to close the subcutaneous tissues. Skin jolie were then used to close the skin. Dressings were placed, and the procedure was concluded. All sponge, instrument, and needle counts were correct x2. Condition: Stable. Rashida Luciano PA-C was scrubbed and present the entirety of the procedure. She assisted with all portions of the procedure including removal of the hairbearing skin, placement of the drain, closure of the subcutaneous tissue, and closure of the skin.
== END 2019-01-25 13:40 | disposition home or self-care (01) ==
LOC: OROUT 07:59
PROVIDERS: ATTEND Surgery
DX: L73.2 Hidradenitis suppurativa (principal); E78.00 Pure hypercholesterolemia, unspecified; I25.2 Old myocardial infarction; I10 Essential (primary) hypertension; F17.210 Nicotine dependence, cigarettes, uncomplicated; Z79.899 Other long term (current) drug therapy; Z79.51 Long term (current) use of inhaled steroids; I11.9 Hypertensive heart disease without heart failure; I25.10 Atherosclerotic heart disease of native coronary artery without angina pectoris
CPT/HCPCS: 93005; 36415; 85027; 80048; 71046; 93010; 00400; 11451; 14040; J3490 ×2; J2250; J1100; J3010; J2405; J7060; J7050; J2704; J3370; S0028; J1741; 400

== ENCOUNTER 2019-01-26 14:47 | Emergency (ER) | payer MEDICAID ==
--- NOTE | 2019-01-26 15:00 | ER Document Report ---
ED Medical Screen (RME) - General Chief Complaint: Post Surgical Pain Stated Complaint: POST OP PROBLEM Time Seen by Provider: 01/26/19 14:58 Primary Care Provider: MIREYA BRUMFIELD PA-C [Primary Care Provider] - Follow up as needed Mode of Arrival: Ambulatory Information source: Patient Notes: Patient reports having surgery yesterday to bilateral axilla for hidradenitis suppurativa per Dr. Vargas. Patient complains of increased pain today that is not relieved with [id number] ibuprofen as well as her prescription of Vicodin. Patient has not remove the dressings as she was told to leave them in place until tomorrow. I have greeted and performed a rapid initial assessment of this patient. A comprehensive ED assessment and evaluation of the patient, analysis of test results and completion of the medical decision making process will be conducted by additional ED providers. TRAVEL OUTSIDE OF THE [place] IN LAST 30 DAYS: No - Related Data Allergies/Adverse Reactions: No Known Allergies Allergy (Verified 01/26/19 14:57) Past Medical History - Past Medical History Cardiac Medical History: Reports: Hx Congestive Heart Failure, Hx Coronary Artery Disease, Hx Heart Attack, Hx Hypercholesterolemia Denies: Hx Hypertension Pulmonary Medical History: Reports: Hx Asthma, Hx Bronchitis, Hx COPD, Hx Pneumonia Denies: Hx Tuberculosis Neurological Medical History: Denies: Hx Cerebrovascular Accident, Hx Seizures, Hx Parkinson's Disease Renal/ Medical History: Reports: Hx Kidney Stones. Denies: Hx End Stage Renal Disease, Hx Peritoneal Dialysis GI Medical History: Reports: Hx Gastroesophageal Reflux Disease. Denies: Hx Cirrhosis, Hx Gastritis, Hx Hepatitis, Hx Irritable Bowel, Hx Ulcer Musculoskeltal Medical History: Denies Hx Arthritis, Denies Hx Fibromyalgia, Denies Hx Gout, Denies Hx Multiple Sclerosis, Reports Hx Muscle Spasm - lower back, Denies Hx Musculoskeletal Deformity Psychiatric Medical History: Reports: Hx Anxiety, Hx Bipolar Disorder, Hx Depression Denies: Hx Schizophrenia Infectious Medical History: Denies: Hx Hepatitis Past Surgical History: Reports: Hx Appendectomy, Hx Cardiac Catheterization - x3, Hx Cardiac Surgery - stent x1, Hx Coronary Stent - x2 2008 at [facility] in [place], Hx Hysterectomy, Hx Kidney (Renal Surgery), Hx Orthopedic Surgery - nose. Denies: Hx Pacemaker - Immunizations Immunizations up to date: Yes Hx Diphtheria, Pertussis, Tetanus Vaccination: Yes Physical Exam - Vital signs Vitals: Temp Pulse Resp BP Pulse Ox 97.9 F 77 18 107/63 97 01/26/19 14:51 01/26/19 14:51 01/26/19 14:51 01/26/19 14:51 01/26/19 14:51 - General Notes: Tenderness to bilateral axilla with ISAIAH drain in place. Course - Vital Signs Vital signs: Temp Pulse Resp BP Pulse Ox 97.9 F 77 18 107/63 97 01/26/19 14:51 01/26/19 14:51 01/26/19 14:51 01/26/19 14:51 01/26/19 14:51 Doctor's Discharge - Discharge Referrals: MIREYA BRUMFIELD PA-C [Primary Care Provider] - Follow up as needed
[2019-01-26 15:28] LABS: ABSOLUTE EOSINOPHILS # (AUTO) 0.1 10^3/uL (0.0-0.6); ABSOLUTE LYMPHOCYTES (AUTO) 2.1 10^3/uL (0.5-4.7); ABSOLUTE MONOCYTES (AUTO) 0.4 10^3/uL (0.1-1.4); ABSOLUTE NEUT (AUTO) 4.1 10^3/uL (1.7-8.2); BASOPHILS % (AUTO) 0.5 % (0-2); EOSINOPHILS % (AUTO) 2.1 % (0-6); HEMATOCRIT 35.1 % (36.0-47.0); LYMPHOCYTES % (AUTO) 31.3 % (13-45); MEAN CORPUSCULAR VOLUME 91 fl (80-97); MONOCYTES % (AUTO) 6.4 % (3-13); PLATELET COUNT 235 10^3/uL (150-450); RED BLOOD COUNT 3.86 10^6/uL (3.72-5.28); RED CELL DISTRIBUTION WIDTH 13.2 % (11.5-14.0); SEGMENTED NEUTROPHILS % (AUTO) 59.7 % (42-78); TOTAL CELLS COUNTED % (AUTO) 100 %; WHITE BLOOD COUNT 6.8 10^3/uL (4.0-10.5)
[2019-01-26 15:46] LABS: ANION GAP 9 (5-19); BLOOD UREA NITROGEN 14 mg/dL (7-20); CALCIUM 9.5 mg/dL (8.4-10.2); CARBON DIOXIDE 29 mmol/L (22-30); CHLORIDE 102 mmol/L (98-107); GLUCOSE 105 mg/dL (75-110); POTASSIUM 3.3 mmol/L (3.6-5.0)
[2019-01-26] MEDS ORDERED: HYDROMORPHONE HCL INJ/PF 2 MG/ML AMPULE IM ONE (16:07)
--- NOTE | 2019-01-26 16:38 | ER Document Report ---
ED General - General Chief Complaint: Post Surgical Pain Stated Complaint: POST OP PROBLEM Time Seen by Provider: 01/26/19 14:58 Primary Care Provider: MIREYA BRUMFIELD PA-C [Primary Care Provider] - Follow up as needed PETE VARGAS MD [ACTIVE STAFF] - Follow up in 3-5 days Mode of Arrival: Ambulatory Information source: Patient Notes: Patient reports having surgery yesterday to bilateral axilla for hidradenitis suppurativa per Dr. Vargas. Patient complains of increased pain today that is not relieved with zdwl-[id number]-[id number] ibuprofen as well as her prescription of Vicodin. Patient denies fever, chills, purulent drainage. TRAVEL OUTSIDE OF THE [place] IN LAST 30 DAYS: No - HPI Onset: This morning Onset/Duration: Gradual, Persistent, Worse Quality of pain: Throbbing Severity: Severe Pain Level: 4 Associated symptoms: Body/muscle aches. denies: Chest pain, Fever, Nausea, Vomiting, Shortness of breath Exacerbated by: Movement Relieved by: Denies Similar symptoms previously: Yes Recently seen / treated by doctor: Yes - Related Data Allergies/Adverse Reactions: No Known Allergies Allergy (Verified 01/26/19 14:57) Home Medications: vicodin. ibuprofen. aspirin. amlodipine besylate. penicillin. phenergan. isosorbide mono. proair. symbicort. spiriva Past Medical History - General Information source: Patient - Social History Smoking Status: Current Every Day Smoker Cigarette use (# per day): Yes - 10 Chew tobacco use (# tins/day): No Smoking Education Provided: Yes - Smoking cessation counseling was provided for 4 minutes at the bedside Frequency of alcohol use: None Drug Abuse: None Lives with: Family, Spouse/Significant other Family History: Reviewed & Not Pertinent Patient has suicidal ideation: No Patient has homicidal ideation: No - Past Medical History Cardiac Medical History: Reports: Hx Congestive Heart Failure, Hx Coronary Artery Disease, Hx Heart Attack, Hx Hypercholesterolemia Denies: Hx Hypertension Pulmonary Medical History: Reports: Hx Asthma, Hx Bronchitis, Hx COPD, Hx Pneumonia Denies: Hx Tuberculosis Neurological Medical History: Denies: Hx Cerebrovascular Accident, Hx Seizures, Hx Parkinson's Disease Renal/ Medical History: Reports: Hx Kidney Stones. Denies: Hx End Stage Renal Disease, Hx Peritoneal Dialysis GI Medical History: Reports: Hx Gastroesophageal Reflux Disease. Denies: Hx Cirrhosis, Hx Gastritis, Hx Hepatitis, Hx Irritable Bowel, Hx Ulcer Musculoskeletal Medical History: Denies Hx Arthritis, Denies Hx Fibromyalgia, Denies Hx Gout, Denies Hx Multiple Sclerosis, Reports Hx Muscle Spasm - lower back, Denies Hx Musculoskeletal Deformity Psychiatric Medical History: Reports: Hx Anxiety, Hx Bipolar Disorder, Hx Depression Denies: Hx Schizophrenia Infectious Medical History: Denies: Hx Hepatitis Past Surgical History: Reports: Hx Appendectomy, Hx Cardiac Catheterization - x3, Hx Cardiac Surgery - stent x1, Hx Coronary Stent - x2 2008 at [facility] in [place], Hx Hysterectomy, Hx Kidney (Renal Surgery), Hx Orthopedic Surgery - nose. Denies: Hx Pacemaker - Immunizations Immunizations up to date: Yes Hx Diphtheria, Pertussis, Tetanus Vaccination: Yes Hx Pneumococcal Vaccination: 05/10/12 Review of Systems - Review of Systems Notes: REVIEW OF SYSTEMS: CONSTITUTIONAL : Denies fever, chills, or sweats. Denies recent illness. Denies weight loss, recent hospitalizations. EENT: Denies visual changes, eye pain. Denies sore throat, oral lesions, difficulty swallowing. CARDIOVASCULAR: Denies chest pain. Denies palpitations. Denies lower extremity edema. RESPIRATORY: Denies cough. Denies shortness of breath, wheezing. GASTROINTESTINAL: Denies abdominal pain or distention. Denies nausea, vomi ting, or diarrhea. Denies blood in vomitus, stools, or per rectum. Denies black, tarry stools. Denies constipation. GENITOURINARY: Denies difficulty urinating, painful urination, frequency, blo od in urine, or vaginal discharge. MUSCULOSKELETAL: Denies back or neck pain or stiffness. Denies joint pain or swelling. SKIN: Left upper extremity ecchymosis HEMATOLOGIC : Denies easy bruising or bleeding. LYMPHATIC: Denies swollen glands. NEUROLOGICAL: Denies confusion or altered mental status. Denies loss of consciousness. Denies dizziness or lightheadedness. Denies headache. Denies weakness or paralysis. Denies problems difficulty with ambulation, slurred speech. Denies sensory loss, numbness, or tingling. Denies seizures. PSYCHIATRIC: Denies anxiety or stress. Denies depression, suicidal ideation, or homicidal ideation. Denies visual or auditory hallucinations. Physical Exam - Vital signs Vitals: Temp Pulse Resp BP Pulse Ox 97.9 F 77 18 107/63 97 10/26/19 14:51 01/26/19 14:51 01/26/19 14:51 01/26/19 14:51 01/26/19 14:51 - Notes Notes: PHYSICAL EXAMINATION: GENERAL: Well-appearing, well-nourished and in no acute distress. HEAD: Atraumatic, normocephalic. EYES: Pupils equal round and reactive to light, extraocular movements intact, conjunctiva are normal. ENT: Nares patent, oropharynx clear without exudates. Moist mucous membranes. NECK: Normal range of motion, supple without lymphadenopathy LUNGS: Breath sounds clear to auscultation bilaterally and equal. No wheezes rales or rhonchi. Bilateral axillary drains with serosanguineous fluid. No surrounding erythema of the surgical incision which still contains jolie. HEART: Regular rate and rhythm without murmurs ABDOMEN: Soft, nontender, nondistended abdomen. No guarding, no rebound. No masses appreciated. Female : deferred Musculoskeletal: Normal range of motion, no pitting or edema. No cyanosis. Extensive ecchymosis of the left upper extremity. NEUROLOGICAL: Cranial nerves grossly intact. Normal speech, normal gait. Normal sensory, motor exams PSYCH: Normal mood, normal affect. SKIN: Warm, Dry, normal turgor, no rashes or lesions noted. Course - Re-evaluation Re-evalutation: Temp Pulse Resp BP Pulse Ox 97.9 F 77 18 107/63 97 01/26/19 14:51 01/26/19 14:51 01/26/19 14:51 01/26/19 14:51 01/26/19 14:51 01/26/19 16:38 Patient reports having surgery yesterday to bilateral axilla for hidradenitis suppurativa per Dr. Vargas. Patient complains of increased pain today that is not relieved with hdqp-aey-djtpxii ibuprofen as well as her prescription of Vicodin. Vital signs reviewed and within normal limits. Patient is afebrile, normotensive. She does not appear toxic or dehydrated. Surgical wounds are clean dry and intact. Bilateral drains show serosanguineous fluid, no purulent discharge. 01/26/19 17:05 Patient reevaluated after receiving 1 mg of IM Dilaudid and reports feeling much better. Patient will be discharged home with return precautions and recommendations to follow-up with her surgeon as planned. 01/26/19 17:06 Patient was evaluated and treated as appropriate for the patient's presenting symptoms and complaint, with consideration of any critical or life threatening conditions that may be associated with their obtained history and exam as noted above. All results were discussed with patient and her who is at the bedside. Patient provided the opportunity to ask questions, and express concerns. Patient was educated on treatments based on their presumed diagnosis as noted above. At this time we will discharge the patient with return precautions and follow-up recommendations. Verbal discharge instructions given a the bedside. Medication warnings reviewed. Patient is in agreement with this plan and has verbalized understanding of return precautions. After careful consideration I feel that that patient can be safely discharged from the emergency department, they were advised to followup with a primary care physician in 2-3 days. Dictation on this chart was performed using voice recognition software and may result in unintended grammatical, spelling, syntax or errors. - Vital Signs Vital signs: Temp Pulse Resp BP Pulse Ox 97.7 F 69 16 107/60 100 01/26/19 17:35 01/26/19 17:35 01/26/19 17:35 01/26/19 17:35 01/26/19 17:35 - Laboratory Result Diagrams: 01/26/19 15:17 01/26/19 15:17 Laboratory results interpreted by me: 01/26/19 01/26/19 15:17 15:17 Hct 35.1 L Potassium 3.3 L Discharge - Discharge Clinical Impression: Encounter for postoperative wound check Condition: Good Disposition: HOME, SELF-CARE Instructions: Care of Stapled Wounds ([facility]) Additional Instructions: Please call your surgeon or return to the emergency department immediately if you develop fever greater than 101, worsening pain, purulent drainage from your surgical site. Follow up with your [id number] hours for further care or return to the ED IMMEDIATELY if symptoms worsen or you have any concerns. If you cannot afford to follow up with your primary care physician a list of low cost clinics have been provided at the end of your discharge papers as well. Most prescribed medications have multiple side effects. The safest thing to do is when filling your prescription speak to your pharmacist regarding possible interactions with your normal home medications and over the counter medications such as Ibuprofen, Tylenol, Benadryl. If you experience any symptoms that cause you discomfort or concern you should discontinue the medication immediately and return to the emergency room or call your primary care physician. Referrals: MIREYA BRUMFIELD PA-C [Primary Care Provider] - Follow up as needed PETE VARGAS MD [ACTIVE STAFF] - Follow up in 3-5 days
[2019-01-26 17:36] VITALS: BP 107/60
== END 2019-01-26 17:36 | disposition home or self-care (01) ==
LOC: ER 14:47
DX: G89.18 Other acute postprocedural pain (principal); M79.10 Myalgia, unspecified site; Z98.890 Other specified postprocedural states; F17.210 Nicotine dependence, cigarettes, uncomplicated; I50.9 Heart failure, unspecified; I25.10 Atherosclerotic heart disease of native coronary artery without angina pectoris; J44.9 Chronic obstructive pulmonary disease, unspecified
CPT/HCPCS: 36415; 85025; 80048; J1170; 96374; 99283; 99406

== ENCOUNTER 2019-01-27 07:28 | Emergency (ER) | payer MEDICAID ==
[2019-01-27 07:32] VITALS: BP 121/67
== END 2019-01-27 08:35 | disposition left against medical advice (07) ==
LOC: ER 07:28
DX: Z53.21 Procedure and treatment not carried out due to patient leaving prior to being seen by health care provider (principal)

== ENCOUNTER 2019-12-14 15:39 | Emergency (ER) | payer MEDICAID ==
[2019-12-14 15:49] VITALS: BP 104/76
--- NOTE | 2019-12-14 16:10 | ER Document Report ---
HPI - HPI Patient complains to provider of: Skin rash Time Seen by Provider: 12/14/19 16:00 Onset: Other - 3 days Onset/Duration: Worse Pain Level: 1 Context: Patient states she was cleaning her house 3 days ago that had mites. Patient has been itching at her skin since then and is concerned that the mites are underneath her skin. Patient with multiple excoriated areas to extremities. Patient reports seeing the insects crawling out of her skin. Associated Symptoms: denies: Fever, Headache Exacerbated by: Denies Relieved by: Denies Similar symptoms previously: No Recently seen / treated by doctor: No - ROS ROS below otherwise negative: Yes Systems Reviewed and Negative: Yes All other systems reviewed and negative - CONSTITUTIONAL Constitutional: DENIES: Fever, Chills - NEURO Neurology: DENIES: Headache - REPRODUCTIVE Reproductive: DENIES: : - DERM Skin Color: Normal Skin Problems: Rash Past Medical History - General Information source: Patient - Social History Smoking Status: Current Every Day Smoker Frequency of alcohol use: None Drug Abuse: None Occupation: Housekeeping Family History: Reviewed & Not Pertinent Patient has homicidal ideation: No - Past Medical History Cardiac Medical History: Reports: Hx Congestive Heart Failure, Hx Coronary Artery Disease, Hx Heart Attack, Hx Hypercholesterolemia Denies: Hx Hypertension Pulmonary Medical History: Reports: Hx Asthma, Hx Bronchitis, Hx COPD, Hx Pneumonia Denies: Hx Tuberculosis Neurological Medical History: Denies: Hx Cerebrovascular Accident, Hx Seizures, Hx Parkinson's Disease Renal/ Medical History: Reports: Hx Kidney Stones. Denies: Hx End Stage Renal Disease, Hx Peritoneal Dialysis GI Medical History: Reports: Hx Gastroesophageal Reflux Disease. Denies: Hx Cirrhosis, Hx Gastritis, Hx Hepatitis, Hx Irritable Bowel, Hx Ulcer Musculoskeletal Medical History: Denies Hx Arthritis, Denies Hx Fibromyalgia, Denies Hx Gout, Denies Hx Multiple Sclerosis, Reports Hx Muscle Spasm - lower back, Denies Hx Musculoskeletal Deformity Psychiatric Medical History: Reports: Hx Anxiety, Hx Bipolar Disorder, Hx Depression Denies: Hx Schizophrenia Infectious Medical History: Denies: Hx Hepatitis Past Surgical History: Reports: Hx Appendectomy, Hx Cardiac Catheterization - x3, Hx Cardiac Surgery - stent x1, Hx Coronary Stent - x2 2008 at [facility] in [place], Hx Hysterectomy, Hx Kidney (Renal Surgery), Hx Orthopedic Surgery - nose. Denies: Hx Pacemaker - Immunizations Immunizations up to date: Yes Hx Diphtheria, Pertussis, Tetanus Vaccination: Yes Hx Pneumococcal Vaccination: 05/10/12 Vertical Provider Document - CONSTITUTIONAL Agree With Documented VS: Yes Exam Limitations: No Limitations General Appearance: WD/WN, No Apparent Distress - INFECTION CONTROL TRAVEL OUTSIDE OF THE [place] IN LAST 30 DAYS: No - HEENT HEENT: Atraumatic, Normocephalic - NECK Neck: Normal Inspection, Supple - RESPIRATORY Respiratory: Breath Sounds Normal, No Respiratory Distress - BACK Back: Normal Inspection - MUSCULOSKELETAL/EXTREMETIES Musculoskeletal/Extremeties: SUSY SHANNON - NEURO Level of Consciousness: Awake, Alert, Appropriate Motor/Sensory: No Motor Deficit - DERM Integumentary: Warm, Dry, Rash - Scattered excoriated lesions to upper and lower extremity Course - Re-evaluation Re-evalutation: 12/14/19 16:06 Patient with scattered excoriated lesions in various stages of healing to upper and lower extremities. 12/14/19 16:06 Patient concerned about possible mites under the skin, will treat symptomatically and encourage outpatient follow-up with her primary doctor. - Vital Signs Vital signs: Temp Pulse Resp BP Pulse Ox 97.7 F 77 18 104/76 96 12/14/19 15:48 12/14/19 15:48 12/14/19 15:48 12/14/19 15:48 12/14/19 15:48 Discharge - Discharge Clinical Impression: Skin rash Condition: Stable Disposition: HOME, SELF-CARE Instructions: Anti-Mite Skin Creams Additional Instructions: Return immediately for any new or worsening symptoms Followup with your primary care provider, call tomorrow to make a followup appointment Prescriptions: Permethrin [Acticin 5% Cream 60 gm] 1 applic TP ONCE PRN #60 gm PRN Reason: Hydroxyzine Pamoate [Vistaril 50 mg Capsule] 50 mg PO TID PRN #15 capsule PRN Reason: Referrals: MIREYA BRUMFIELD PA-C [Primary Care Provider] - Follow up as needed
== END 2019-12-14 16:05 | disposition home or self-care (01) ==
LOC: ER 15:39
DX: R21 Rash and other nonspecific skin eruption (principal); F17.200 Nicotine dependence, unspecified, uncomplicated; I50.9 Heart failure, unspecified; I25.10 Atherosclerotic heart disease of native coronary artery without angina pectoris; E78.00 Pure hypercholesterolemia, unspecified; Z87.442 Personal history of urinary calculi; I25.2 Old myocardial infarction
CPT/HCPCS: 99283

== ENCOUNTER 2019-12-19 10:28 | Emergency (ER) | payer MEDICAID | END 2019-12-19 12:09 | disposition left against medical advice (07) | LOC: ER 10:28 | DX: Z53.21 Procedure and treatment not carried out due to patient leaving prior to being seen by health care provider (principal) ==

== ENCOUNTER 2020-01-23 19:01 | Emergency (ER) | payer MEDICAID ==
[2020-01-23 19:32] VITALS: BP 121/71
== END 2020-01-23 21:20 | disposition left against medical advice (07) ==
LOC: ER 19:01
DX: Z53.21 Procedure and treatment not carried out due to patient leaving prior to being seen by health care provider (principal)